=== PATIENT | male | born 1960 | race Caucasian/White ===

== ENCOUNTER 2019-12-23 19:36 | Inpatient (IN) | payer MEDICAID, SELFPAY ==
--- NOTE | ~2019-12-23 | XR_ITS ---
EXAMINATION: XR chest 2V DATE: 12/23/2019 21:02 INDICATION: Shortness of breath TECHNIQUE: PA and lateral views of the chest are obtained. COMPARISON: 06/05/2013 FINDINGS: Small pleural effusions are present, left greater than right. Cardiomegaly is noted. There is a mild diffuse interstitial pattern. No pneumothorax is identified. Airspace opacities are present in the lung bases, left greater than right. Median sternotomy wires and mediastinal surgical clips a re seen, likely from prior coronary artery bypass grafting. Suture anchors are noted in the left timothy ral head. There are bridging osteophytes at multiple levels in the spine, consistent with diffuse idi opathic skeletal hyperostosis (DISH). IMPRESSION: 1. Cardiomegaly with mild pulmonary edema. 2. Small pleural effusions, left greater than right. 2. Bibasilar airspace opacity, likely atelectasis. Reviewed, dictated and finalized at location A.
[2019-12-23 19:52] VITALS: BP 184/126; PULSE 113; RESP 25; TEMP 36.1; O2SAT 98
--- NOTE | 2019-12-23 19:56 | ECG_ITS ---
Measurements Intervals [place] Rate: 110 P: -26 PA: 144 QRS: 11 QRSD: 90 T: 80 QT: 330 QTc: 448 Interpretive Statements SINUS TACHYCARDIA LOW QRS VOLTAGE IN LIMB LEADS BORDERLINE R WAVE PROGRESSION, ANTERIOR LEADS BORDERLINE T WAVE ABNORMALITY- HIGH LATERAL LEADS ABNORMAL ECG Electronically Signed On 12-24-2019 6:41:21 CDT by Asaf Murillo D.O.
[2019-12-23 20:03] LABS: Basophils Percent Auto 0.3 % (0.2-1.2); Eosinophils Percent Auto 0.1 % (0-4.4); Hemoglobin 14.6 g/dL (14.0-18.0); Immature Granulocyte Absolute 0.03 K/mm3 (0.00-0.031); Immature Granulocyte Percent A 0.3 % (0-0.5); Lymphocytes Absolute Auto 1.19 K/mm3 (0.9-3.2); Lymphocytes Percent Auto 12.8 % (18.3-44.2); Mean Corpuscular HGB Conc 31.7 g/dl (32-36); Mean Corpuscular Hemoglobin 30.2 pg (26-34); Monocytes Absolute Auto 1.1 K/mm3 (0.1-0.6); Monocytes Percent Auto 11.4 % (2.6-8.5); Neutrophils Percent Auto 75.1 % (45.5-73.1); Platelet Count Result 417 k/mm3 (150-375); Red Blood Count 4.84 M/mm3 (4.6-6.20); Red Cell Distribution Width 13.8 % (11.5-14.5); White Blood Count 9.3 K/mm3 (4.5-10.0)
[2019-12-23 20:12] LABS: Prothrombin Time 13.3 Seconds (11.1-14.7)
[2019-12-23 20:13] LABS: Partial Thromboplastin Time 30.4 SECONDS (22.3-36.8)
[2019-12-23 20:14] LABS: Anion Gap 11 mmol/L (8-16); Blood Urea Nitrogen 23 mg/dL (9-20); Calcium 9.8 mg/dL (8.4-10.2); Carbon Dioxide 24 mmol/L (22-30); Chloride 100 mmol/L (98-107); Estimated CRCL calculation 97 ml/min; Estimated Glomerular Filt Rate > 60; Glucose 135 mg/dL (75-110); Potassium 5.1 mmol/L (3.4-5.0); Sodium 135 mmol/L (137-145)
[2019-12-23 20:31] LABS: NT Pro B Type Natriuretic Pept 17500 PG/ML (5-100); Troponin I 0.073 ng/mL (0.000-0.034)
[2019-12-23 20:39] VITALS: PULSE 113
--- NOTE | 2019-12-23 20:52 | PC.NURSE ---
pt presents to ER with c/o bilateral lower extremity edema and SOB. pt states he has not been taking Lasix or been to doctor in 5 years. pt states after he lost his insurance he was not able to pay for his medications. this past week his neighbor provided him with some Lasix, unknown dose. bilateral lower extremity pitting edema present. +SOB with rest and exertion. denies any CP. pt hypertensive upon arrival. pt hooked up to monitor; will continue to monitor pt for baseline status changes.
--- NOTE | 2019-12-23 21:10 | ED.GENADULT ---
HPI - General Adult General Chief complaint: Shortness of Breath/Dyspnea Stated complaint: sob, leg swelling Time Seen by Provider: 12/23/19 20:49 Source: patient History of Present Illness HPI narrative: Patient is a 59 y/o male complaining of severe shortness of breath for 2 weeks. He states that his SOB is severe and it's worse with minimal exertion. He also has some cough and chest pain with cough. He denies any fever. He has not been compliant with his medications recently. Related Data Home Medications Medication Instructions Recorded Confirmed omeprazole magnesium [Prilosec OTC] 20 mg PO DAILY 12/24/19 12/24/19 Allergies Allergy/AdvReac Type Severity Reaction Status Date / Time No Known Allergies Allergy Verified 07/03/13 09:57 Review of Systems Constitutional: Constitutional: Denies chills, Denies fever(s), Denies headache(s) and Denies weakness Eyes: Eyes: Denies blurry vision ENT: Denies headache(s) and Denies neck pain Cardiovascular: Cardiovascular: Reports chest pain and Reports dyspnea Respiratory: Respiratory: Reports cough and Reports dyspnea Gastrointestinal: Gastrointestinal: Denies abdominal pain, Denies diarrhea, Denies nausea and Denies vomiting Genitourinary: Genitourinary: Denies hematuria and Denies dysuria Musculoskeletal: Musculoskeletal: Denies back pain and Denies neck pain Neurologic: Denies headache(s) and Denies weakness PMF Past Medical History Medical History (Updated 12/24/19 @ 12:25 by Joann Malloy MD) CHF (congestive heart failure) Coronary artery disease Dilatation of esophagus Essential hypertension GERD (gastroesophageal reflux disease) Obstructive sleep apnea on CPAP Surgical History Surgical History (Updated 12/24/19 @ 09:19 by Helene David DO) History of bilateral carpal tunnel release History of repair of anterior cruciate ligament of right knee History of repair of left rotator cuff x2 History of repair of right rotator cuff Hx of CABG 2 vessel July 2014 at [place] Family History Family History (Updated 12/24/19 @ 09:29 by Helene David DO) Mother Diabetes mellitus Father Prostate carcinoma Sibling Intellectual disability younger sister Social History Social History Smoking status: Never smoker Alcohol intake: former Drinks per week: 12 Substance use: never Substance use type: does not use Gender identity (if verbalized by the patient): Male Spiritual care concerns: No Exam Const: General: no acute distress and well developed Orientation/consciousness: oriented to person, oriented to place, oriented to time and patient oriented x3 HENMT: Head: normocephalic Ears: external ears normal General nose exam: Normal external nose present Eyes: General: appearance normal, both eyes and all related structures Conjunctivae: conjunctivae normal Neck: Neck: normal visual inspection and full ROM Chest: Chest palpation & inspection: normal inspection of the chest and no tenderness Resp: Effort & Inspection: normal respiratory effort Auscultation: clear to auscultation bilaterally Cardio: Rate: tachycardic Rhythm: regular rhythm GI: GI Palp: No abdominal tenderness and Yes Soft to palpation Skin: General skin exam: normal color and turgor normal Neuro: General: oriented to person, oriented to place, oriented to time and patient oriented x3 Speech: normal speech Coordination: [id number]-[id number] test normal and [id number]-rc-[id number] test normal Extrem: General: normal to inspection, full ROM, edema bilateral and pedal edema Psych: Appearance: grossly normal Mental Status: mental status grossly normal Affect: normal affect Course Consultations Consultation #1: Discussed with Dr. David, who agrees to admit. Date: 12/24/19 Time: 00:15 Vital Signs Vital signs: Vital Signs Temperature 36.1 C L 12/23/19 19:52 Pulse Rate 113 H 12/23/19 19:52 Resp
[2019-12-23] MEDS: FUROSEMIDE INJ 40 MG/4 ML VIAL IV PUSH (21:22)
[2019-12-23 21:23] VITALS: BP 172/109; PULSE 107; RESP 21; O2SAT 100
[2019-12-23 21:57] VITALS: PULSE 108
[2019-12-23] MEDS: lisinopriL 20 MG TABLET PO (21:57)
[2019-12-23] MEDS: carvediloL 12.5 MG TABLET PO (21:57)
[2019-12-23 21:58] VITALS: BP 173/119; PULSE 108; RESP 20; O2SAT 100
[2019-12-23 22:49] VITALS: BP 138/97; PULSE 98; RESP 18; O2SAT 97
[2019-12-24] VITALS (16 sets, daily range): BP systolic 112–170; BP diastolic 67–112; PULSE 65–89; RESP 17–22; TEMP 35.9–36.7; O2SAT 94–100; BMI 35.4
--- NOTE | 2019-12-24 | ECHO_ITS ---
Patient Info Name: Jagdeep Nieto Age: 59 years : 1960 Gender: Male Ht: 73 in Wt: 268 lbs BSA: 2.54 m2 HR: 80 bpm BP: 170 / 112 mmHg Heart Rhythm: Sinus Rhythm Technical Quality: Good Exam Date: 12/24/2019 9:46 AM Exam Location: [facility] Patient Status: Inpatient Admit Date: 12/24/2019 Staff Ordering Physician: Rivas Burgos MD Optical Assistant: Devonte Philippe RDCS Attending Provider: Helene David DO Referring Physician: Aubrey WADE; Exam Type: CA echo dop color flow w con Study Info Indications I50.22 - Chronic systolic (congestive) heart failure Complete two-dimensional, color flow and Doppler transthoracic echocardiogram is performed with contrast to opacify the left ventricle and to improve the deliniation of the left ventricle endocardial borders. Contrast/Agitated Saline Contrast/Ag. Saline: Definity Amount: 3.00 ml Administered By: Herb Hodgson RN Existing IV Access: Yes History/Risk Factors CHF; CAD s/p CABG 2015, SOB, tachycardia. Summary 1. Left ventricular chamber dimension is moderately enlarged. 2. Left ventricular systolic function is severely reduced, estimated at 20-25%. 3. There is mildly increased left ventricular wall thickness. 4. The left ventricular diastolic function is grade II diastolic dysfunction. 5. The apical inferior wall, apical cap, and mid anteroseptal are akinetic. 6. The anterior wall, anterolateral wall, inferolateral wall, apical septum, basal inferior wall, mid inferior wall, basal inferoseptal, and basal anteroseptal are hypokinetic. 7. Left atrial chamber dimension is mildly enlarged. 8. There is mild aortic valve regurgitation. 9. There is mild mitral valve regurgitation. 10. There is mild tricuspid valve regurgitation. 11. There is moderate pulmonic regurgitation. Left Ventricle Left ventricular chamber dimension is moderately enlarged. Left ventricular systolic function is severely reduced, estimated at 20-25%. There is mildly increased left ventricular wall thickness. The left ventricular diastolic function is grade II diastolic dysfunction. The apical inferior wall, apical cap, and mid anteroseptal are akinetic. The anterior wall, anterolateral wall, inferolateral wall, apical septum, basal inferior wall, mid inferior wall, basal inferoseptal, and basal anteroseptal are hypokinetic. All other marie appear normal. Right Ventricle Right ventricular chamber dimension is normal. Right ventricular systolic function is normal. Left Atria Left atrial chamber dimension is mildly enlarged. Atrial Septum Intact interatrial septum visualized by color flow imaging. Aortic Valve The aortic valve is trileaflet. There is mild aortic valve sclerosis. There is no aortic valve stenosis. There is mild aortic valve regurgitation. Pulmonic Valve The pulmonic valve is normal. There is no pulmonic valve stenosis. There is moderate pulmonic regurgitation. Mitral Valve The mitral valve has thickened leaflets. There is no mitral valve stenosis. There is mild mitral valve regurgitation. Tricuspid Valve The tricuspid valve leaflets are normal. There is no significant tricuspid valve stenosis. There is mild tricuspid valve regurgitation. Pericardium/Pleural The pericardium appears normal. There is trivial pericardial effusion. Inferior Vena Cava Dilated inferior vena cava with >50% collapse upon inspira
[2019-12-24 00:15] LABS: Troponin I 0.075 ng/mL (0.000-0.034)
--- NOTE | 2019-12-24 02:20 | ADMGEN ---
This patient, Jagdeep Nieto, was admitted to 2 Medical Room 259-01. Patient/family oriented to hospital policies and general routines including ID bracelet, bed and alarms, visiting hours, pain management, procedures, bathroom and other care routines, personal items, smoking policy, room service/diet, and visiting hours. Valuables list has been completed. Information on how to activate the Rapid Response Team has been discussed. Patient/Family are encouraged to report perceived risks to care and to ask questions if they do not understand what they are told or what they should do.
[2019-12-24 03:02] LABS: Troponin I 0.093 ng/mL (0.000-0.034)
[2019-12-24 05:46] LABS: Basophils Percent Auto 0.3 % (0.2-1.2); Eosinophils Percent Auto 0.1 % (0-4.4); Hematocrit 43.6 % (42.0-52.0); Immature Granulocyte Absolute 0.04 K/mm3 (0.00-0.031); Immature Granulocyte Percent A 0.4 % (0-0.5); Lymphocytes Absolute Auto 1.33 K/mm3 (0.9-3.2); Mean Corpuscular HGB Conc 32.1 g/dl (32-36); Mean Corpuscular Hemoglobin 30.4 pg (26-34); Mean Corpuscular Volume 94.6 fl (80-100); Mean Platelet Volume 9.8 fl (7.4-10.4); Monocytes Absolute Auto 1.2 K/mm3 (0.1-0.6); Monocytes Percent Auto 12.1 % (2.6-8.5); Neutrophils Absolute Auto 7.6 K/mm3 (1.3-6.7); Neutrophils Percent Auto 74.1 % (45.5-73.1); Platelet Count Result 386 k/mm3 (150-375); Red Blood Count 4.61 M/mm3 (4.6-6.20); Red Cell Distribution Width 13.9 % (11.5-14.5); White Blood Count 10.2 K/mm3 (4.5-10.0)
[2019-12-24 05:53] LABS: Anion Gap 10 mmol/L (8-16); Blood Urea Nitrogen 25 mg/dL (9-20); Calcium 9.7 mg/dL (8.4-10.2); Carbon Dioxide 22 mmol/L (22-30); Chloride 103 mmol/L (98-107); Estimated CRCL calculation 90 ml/min; Estimated Glomerular Filt Rate > 60; Glucose 115 mg/dL (75-110); Potassium 4.9 mmol/L (3.4-5.0); Sodium 135 mmol/L (137-145)
[2019-12-24 07:01] LABS: Troponin I 0.103 ng/mL (0.000-0.034)
[2019-12-24 07:31] LABS: Basophils Percent Auto 0.4 % (0.2-1.2); Eosinophils Percent Auto 0.1 % (0-4.4); Hematocrit 40.3 % (42.0-52.0); Hemoglobin 13.3 g/dL (14.0-18.0); Immature Granulocyte Absolute 0.03 K/mm3 (0.00-0.031); Immature Granulocyte Percent A 0.4 % (0-0.5); Lymphocytes Absolute Auto 1.43 K/mm3 (0.9-3.2); Lymphocytes Percent Auto 17.1 % (18.3-44.2); Mean Corpuscular Hemoglobin 30.4 pg (26-34); Mean Corpuscular Volume 92.2 fl (80-100); Mean Platelet Volume 9.1 fl (7.4-10.4); Monocytes Absolute Auto 0.9 K/mm3 (0.1-0.6); Monocytes Percent Auto 10.4 % (2.6-8.5); Neutrophils Percent Auto 71.6 % (45.5-73.1); Platelet Count Result 348 k/mm3 (150-375); Red Blood Count 4.37 M/mm3 (4.6-6.20); Red Cell Distribution Width 13.8 % (11.5-14.5); White Blood Count 8.4 K/mm3 (4.5-10.0)
[2019-12-24 07:45] LABS: Anion Gap 9 mmol/L (8-16); Blood Urea Nitrogen 25 mg/dL (9-20); Calcium 9.3 mg/dL (8.4-10.2); Carbon Dioxide 23 mmol/L (22-30); Chloride 101 mmol/L (98-107); Estimated CRCL calculation 98 ml/min; Estimated Glomerular Filt Rate > 60; Glucose 106 mg/dL (75-110); Magnesium 1.9 mg/dL (1.6-2.3); Potassium 4.4 mmol/L (3.4-5.0); Sodium 133 mmol/L (137-145)
[2019-12-24 08:03] LABS: Troponin I 0.087 ng/mL (0.000-0.034)
[2019-12-24] MEDS: FUROSEMIDE INJ 40 MG/4 ML VIAL IV PUSH ×2 (08:14→16:27)
--- NOTE | 2019-12-24 09:00 | ECG_ITS ---
Measurements Intervals [place] Rate: 79 P: 16 [place]: 227 QRS: 20 QRSD: 87 T: 16 QT: 396 QTc: 456 Interpretive Statements SINUS RHYTHM WITH FIRST DEGREE AV BLOCK POSSIBLE LEFT ATRIAL ENLARGEMENT CANNOT RULE OUT SEPTAL INFARCT, AGE INDETERMINATE BORDERLINE T WAVE ABNORMALITY- DIFFUSE LEADS BASELINE ARTIFACT- I, II, III, AVR, AVL, AVF, V4-V6 ABNORMAL ECG Electronically Signed On 12-24-2019 13:04:18 CDT by Asaf Murillo D.O.
--- NOTE | 2019-12-24 09:06 | PM.IMHP ---
H&P: HPI History of Present Illness Date/Time: 12/24/19 07:00 Chief complaint: sob, leg swelling Narrative: Jagdeep Nieto is a 59 year old male With a past medical history of coronary artery disease status post CABG, CHF and obstructive sleep apnea who presented to the ER with shortness of breath and leg swelling. The patient reports that he had a 2 vessel CABG in July 2014 at [facility]. Approximately 6 months after that he lost his job and subsequently did not have any more insurance. He has not taken any of his medications since that time. He reports that over the last couple of years he has had intermittent episodes of shortness of breath. These episodes were usually last several days up to a couple of weeks when they occur. There accompanied by increased lower extremity swelling, orthopnea and paroxysmal nocturnal dyspnea. He reports that he is unable to sleep in a bed and is sleeping in a recliner. This current episode has been occurring for the last 3 weeks. His legs are currently more swollen than they have ever been. He does have chronic postnasal drip and has a frequent cough. He does have some chest discomfort associated with coughing. He reports that the pain is different than his prior cardiac pain. The pain is more superficial . He has not been having any palpitations. At around 5:00 a.m. today the patient developed an 18 beat run of V-tach. He was asymptomatic during this and was asleep. He was not wearing his CPAP at the time of the event. He has obstructive sleep apnea and is compliant with his CPAP therapy however he has not had new CPAP mask in 5 years. He reports that he does clean his CPAP machine each week. The patient reports that he will occasionally have blood tinged stool. He thinks that this is likely due to hemorrhoid but he has never had a colonoscopy. He denies any dysuria or changes in urinary frequency. He has not had any hematuria. He reported that in a immediately after his CABG he had lost 30 or 40 lb and was in really good health. He participated in cardiac rehab and consume an appropriate diet. Admits that he does not necessarily eat a low-sodium diet. he had become so short of breath at home that he tried an lfhw-orz-[id number] diuretic prior to coming to the ER without any improvement in symptoms. He does have intermittent GERD symptoms for which he takes ylrf-edo-sqicsti Pepcid. He also has frequent rhinitis symptoms which he will take fxil-mjy-mrruhqh Cha. Review of Systems Review of Systems: Narrative: 12 systems were reviewed with pertinent positives and negatives per HPI. Except as documented in the HPI, all other systems were reviewed and are negative. [facility] Past Medical History Medical History (Updated 12/24/19 @ 09:38 by Helene David DO) CHF (congestive heart failure) Coronary artery disease Dilatation of esophagus Essential hypertension GERD (gastroesophageal reflux disease) Obstructive sleep apnea on CPAP Surgical History Surgical History (Updated 12/24/19 @ 09:19 by Helene David DO) History of bilateral carpal tunnel release History of repair of anterior cruciate ligament of right knee History of repair of left rotator cuff x2 History of repair of right rotator cuff Hx of CABG 2 vessel July 2014 at [place] Family History Family History (Updated 12/24/19 @ 09:29 by Helene David DO) Mother Diabetes mellitus Father Prostate carcinoma Sibling Intellectual disability younger sister Social History Social History Smoking status: Never smoker Alcohol intake: former Drinks per week: 12 Substance use: never Substance use type: does not use Gender identity (if verbalized by the patient): Male Spiritual care concerns: No Meds Home Medications and Allergies Home Medications Medication Instructions Recorded Confirmed Type omeprazole magnesium [Prilos
[2019-12-24] MEDS: PERFLUTREN LIPID MICROSPHERES 1.5 ML VIAL DILUTED TO 10 ML TOTAL VOLUME IV PUSH (10:20)
[2019-12-24] MEDS: lisinopriL 20 MG TABLET PO (10:29)
[2019-12-24] MEDS: carvediloL 12.5 MG TABLET PO ×2 (10:29→21:25)
[2019-12-24] MEDS: ASPIRIN 81 MG ENTERIC TABLET PO (10:29)
[2019-12-24] MEDS: ENOXAPARIN 40 MG/0.4 ML SYRINGE SUB-Q (10:30)
--- NOTE | 2019-12-24 12:29 | PC.NURSE ---
Dr. Burgos notified of EKG results.
--- NOTE | 2019-12-24 17:05 | PM.IMPN ---
Progress Note: A&P Assessment and Plan (1) Acute on chronic systolic (congestive) heart failure: Code(s): I50.23 - Acute on chronic systolic (congestive) heart failure Status: Acute Assessment and Plan: been placed on FAISAL-inhibitor, beta-kira, with IV diuresis. With low EF full add spironolactone also. Have seen by Cardiology because candidate for possibly LifeVest or ICD later (2) Hypertension: Qualifiers: Hypertension type: essential hypertension Qualified Code(s): I10 - Essential (primary) hypertension Code(s): I10 - Essential (primary) hypertension Status: Acute Assessment and Plan: pressure is better after instituting diuresis and antihypertensives (3) Elevated troponin: Code(s): R79.89 - Other specified abnormal findings of blood chemistry Status: Acute Assessment and Plan: probably secondary to heart failure. Did not suspect any acute coronary event (4) Coronary artery disease: Code(s): I25.10 - Atherosclerotic heart disease of [place] coronary artery without angina pectoris Status: Acute Assessment and Plan: continue beta-kira and will add low-dose aspirin and statin also. (5) DVT prophylaxis: Code(s): Z29.9 - Encounter for prophylactic measures, unspecified Status: Acute Assessment and Plan: Lovenox Subjective Date/time seen: 12/24/19 17:05 Interval history: date of visit 12/23. 59-year-old hypertensive male status post CABG some 5 years ago presented with increasing edema and shortness of breath with hypertension. Been given IV Lasix, beta-kira, and FAISAL-inhibitor and is feeling somewhat better. Echo did today revealed ejection fraction of 20-25%. denies any chest pain. Exam Narrative: Exam Narrative: Blood pressure 140/80 pulse is 82 saturating 99% on room air afebrile pupils equal reactive to light sclera anicteric lungs clear CV no murmur abdomen soft nontender obese extremities without edema dorsalis pedis posterior tibial neuro alert pleasant cooperative no focal deficits Objective Data Vital Signs Vital Signs: Vital Signs - 24 hr 12/23/19 19:52 12/23/19 20:39 12/23/19 21:23 Temperature 36.1 C L Pulse Rate 113 H 113 H 107 H Respiratory Rate 25 H 21 H Blood Pressure 184/126 H 172/109 H Pulse Oximetry 98 100 12/23/19 21:57 12/23/19 21:58 12/23/19 22:49 Temperature Pulse Rate 108 H 108 H 98 Respiratory Rate 20 18 Blood Pressure 173/119 H 138/97 H Pulse Oximetry 100 97 12/24/19 00:29 12/24/19 01:45 12/24/19 02:00 Temperature 36.1 C L Pulse Rate 89 88 Respiratory Rate 17 17 20 Blood Pressure 126/96 H 136/105 H 136/96 H Pulse Oximetry 97 94 98 12/24/19 03:19 12/24/19 04:00 12/24/19 05:36 Temperature 36.7 C Pulse Rate 83 85 84 Respiratory Rate 22 H Blood Pressure 170/112 H Pulse Oximetry 97 12/24/19 08:00 12/24/19 10:29 12/24/19 10:30 Temperature 36.2 C L Pulse Rate 87 65 82 Respiratory Rate 18 Blood Pressure 139/80 Pulse Oximetry 98 12/24/19 12:00 12/24/19 14:00 12/24/19 16:00 Temperature 36.2 C L Pulse Rate 82 81 77 Respiratory Rate 18 Blood Pressure 142/88 H Pulse Oximetry 96 Intake/Output Intake/Output: Intake & Output 12/21/19 12/22/19 12/23/19 12/24/19 23:59 23:59 23:59 23:59 Intake Total 1230 Output Total 500 1450 Balance -500 -220 Meds/Results Medications: Active Medications Generic Name Dose Route Start Last Admin Trade Name Freq PRN Reason Stop Dose Admin Aspirin 81 mg 12/24/19 09:00 12/24/19 10:29 Aspirin Ec PO 81 mg QAM [facility] Administration Carvedilol 12.5 mg 12/24/19 09:15 12/24/19 10:29 Coreg PO 12.5 mg Q12HR [facility] Administration Enoxaparin Sodium 40 mg 12/24/19 09:00 12/24/19 10:30 Lovenox SUB-Q 40 mg DAILY [facility] Administration Furosemide 40 mg 12/24/19 09:00 12/24/19 16:27 Lasix Inj IV PUSH 40 mg BID [facility]
[2019-12-24] MEDS: ATORVASTATIN 40 MG TABLET PO (21:25)
[2019-12-25] VITALS (12 sets, daily range): BP systolic 108–129; BP diastolic 57–81; PULSE 66–80; RESP 18–20; TEMP 35.8–36.5; O2SAT 93–99
[2019-12-25 04:46] LABS: Basophils Percent Auto 0.2 % (0.2-1.2); Eosinophils Absolute Auto 0.1 K/mm3 (0-0.3); Eosinophils Percent Auto 0.8 % (0-4.4); Hematocrit 38.6 % (42.0-52.0); Hemoglobin 12.4 g/dL (14.0-18.0); Immature Granulocyte Absolute 0.03 K/mm3 (0.00-0.031); Immature Granulocyte Percent A 0.3 % (0-0.5); Lymphocytes Absolute Auto 1.21 K/mm3 (0.9-3.2); Lymphocytes Percent Auto 13.8 % (18.3-44.2); Mean Corpuscular HGB Conc 32.1 g/dl (32-36); Mean Corpuscular Hemoglobin 30.3 pg (26-34); Mean Corpuscular Volume 94.4 fl (80-100); Mean Platelet Volume 8.9 fl (7.4-10.4); Monocytes Absolute Auto 1.1 K/mm3 (0.1-0.6); Neutrophils Absolute Auto 6.4 K/mm3 (1.3-6.7); Neutrophils Percent Auto 72.9 % (45.5-73.1); Platelet Count Result 327 k/mm3 (150-375); Red Blood Count 4.09 M/mm3 (4.6-6.20); Red Cell Distribution Width 13.6 % (11.5-14.5); White Blood Count 8.8 K/mm3 (4.5-10.0)
[2019-12-25 04:59] LABS: Anion Gap 6 mmol/L (8-16); Blood Urea Nitrogen 36 mg/dL (9-20); Calcium 8.7 mg/dL (8.4-10.2); Carbon Dioxide 29 mmol/L (22-30); Chloride 99 mmol/L (98-107); Cholesterol 139 mg/dL (0-200); Estimated CRCL calculation 77 ml/min; Estimated Glomerular Filt Rate 57; Glucose 96 mg/dL (75-110); HDL Direct 27 mg/dL; Potassium 4.3 mmol/L (3.4-5.0); Sodium 134 mmol/L (137-145); Triglycerides 41 mg/dL (<150)
[2019-12-25 05:10] LABS: LDL Cholesterol Direct 96 mg/dL
[2019-12-25] MEDS: carvediloL 12.5 MG TABLET PO ×2 (08:05→20:29)
[2019-12-25] MEDS: SPIRONOLACTONE 25 MG TABLET PO (08:05)
[2019-12-25] MEDS: ASPIRIN 81 MG ENTERIC TABLET PO (08:05)
[2019-12-25] MEDS: ENOXAPARIN 40 MG/0.4 ML SYRINGE SUB-Q (08:05)
[2019-12-25] MEDS: lisinopriL 20 MG TABLET PO (08:05)
[2019-12-25] MEDS: FUROSEMIDE INJ 40 MG/4 ML VIAL IV PUSH (08:05)
[2019-12-25] MEDS: PANTOPRAZOLE 40 MG TABLET PO (09:05)
--- NOTE | 2019-12-25 12:03 | PM.CNCAR ---
Assessment and Plan Assessment and plan (1) Acute on chronic systolic (congestive) heart failure: Code(s): I50.23 - Acute on chronic systolic (congestive) heart failure Status: Acute Assessment and Plan: much worse ejection fraction as compared to last study and November of 2014 showing an ejection fraction 45-50% at that time. Agree with current medications including lisinopril, carvedilol, spironolactone, furosemide. (2) Coronary artery disease: Code(s): I25.10 - Atherosclerotic heart disease of [place] coronary artery without angina pectoris Status: Acute Assessment and Plan: Previous WANG to the LAD and SVG to OM in 2014. Has not been on medical therapy since 2015. Likely the vein graft to the OM is occluded and obviously concerned about worsening [place] coronary disease /graft disease. Continue meds including aspirin 81 mg p.o. daily and statin. Will keep him NPO after midnight for cardiac catheterization including coronary and graft angiogram Will hold his morning dose of enoxaparin (3) Hypertension: Qualifiers: Hypertension type: essential hypertension Qualified Code(s): I10 - Essential (primary) hypertension Code(s): I10 - Essential (primary) hypertension Status: Acute Assessment and Plan: better controlled (4) Elevated troponin: Code(s): R79.89 - Other specified abnormal findings of blood chemistry Status: Acute Assessment and Plan: not related to ACS. This is related to heart failure (5) Nonsustained ventricular tachycardia: Code(s): I47.2 - Ventricular tachycardia Status: Acute Assessment and Plan: long-term very well may need a defibrillator. some of this will be dependent on what is found with his coronary angiogram And if any of his cardiomyopathy can be improved. Life vest would be advised discharge if able given his insurance situation (6) Obstructive sleep apnea on CPAP: Code(s): G47.33 - Obstructive sleep apnea (adult) (pediatric); Z99.89 - Dependence on other enabling machines and devices Status: Acute Assessment and Plan: will need outpatient workup (7) Hyperlipidemia: Code(s): E78.5 - Hyperlipidemia, unspecified Status: Acute Assessment and Plan: continue statin (8) Ischemic cardiomyopathy: Code(s): I25.5 - Ischemic cardiomyopathy Status: Acute Assessment and Plan: significantly worse than before. Continue current medication History of Present Illness History of Present Illness Consult date/time: 12/25/19 12:03 Requesting physician: Rivas Burgos MD Consult reason: congestive heart failure Reason For Visit: sob, leg swelling Narrative: Date of service 12/25/2019 reason consultation, cardiomyopathy, CHF, CAD History: Patient is a 59-year-old male who does have a history of coronary disease and had a myocardial infarction in 2014. At that time he was at work and started felt chest pain. He went to [place] where he underwent a coronary angiogram and he was found to have an occluded LAD as well as a circumflex system. He did have right to left collaterals. the ejection fraction at that time was around 30%. He underwent a coronary artery bypass grafting in July 2014 with a WANG to LAD and a SVG to the OM. He did have a follow-up echocardiogram in November of 2014 showing an improvement of his ejection fraction up to 45-50%. Unfortunately shortly thereafter, he lost his job and insurance and has not been seen routinely since that time. He only has been taking mssr-whr-[id number] medications. He states that he was taking aspirin, omeprazole. Over the past 5 years he has had episodes of edema and shortness of breath but these episodes were self-limiting. They would last for a few days to weeks and then resolve but recently is noticed increasingly worse shortness of breath, edema. It has not resolved and has continued to p
[2019-12-25 13:08] LABS: Magnesium 1.9 mg/dL (1.6-2.3)
--- NOTE | 2019-12-25 16:49 | PM.IMPN ---
Progress Note: A&P Assessment and Plan (1) Acute on chronic systolic (congestive) heart failure: Code(s): I50.23 - Acute on chronic systolic (congestive) heart failure Status: Acute Assessment and Plan: been placed on FAISAL-inhibitor, beta-kira, with IV diuresis. With low EF full added spironolactone also. mild fluid restrict with po intake of 3000ml 12/23 decrease lasix to qd with creatinine increased to 1.3 seen by Cardiology and repeat cath 12/25 to assess for ischemia (2) Hypertension: Qualifiers: Hypertension type: essential hypertension Qualified Code(s): I10 - Essential (primary) hypertension Code(s): I10 - Essential (primary) hypertension Status: Acute Assessment and Plan: pressure is better after instituting diuresis and antihypertensives (3) Elevated troponin: Code(s): R79.89 - Other specified abnormal findings of blood chemistry Status: Acute Assessment and Plan: probably secondary to heart failure. Did not suspect any acute coronary event (4) Coronary artery disease: Code(s): I25.10 - Atherosclerotic heart disease of [place] coronary artery without angina pectoris Status: Acute Assessment and Plan: continue beta-kira and low-dose aspirin with statin also. cath 12/25 (5) DVT prophylaxis: Code(s): Z29.9 - Encounter for prophylactic measures, unspecified Status: Acute Assessment and Plan: Lovenox Subjective Date/time seen: 12/25/19 16:49 Interval history: date of visit 12/23. 59-year-old hypertensive male status post CABG some 5 years ago presented with increasing edema and shortness of breath with hypertension. Been given IV Lasix, beta-kira, and FAISAL-inhibitor and is feeling somewhat better. Echo did 12/23 revealed ejection fraction of 20-25%. denies any chest pain. edema decreased some Exam Narrative: Exam Narrative: Blood pressure 110/74 pulse is 70 saturating 96% on room air afebrile pupils equal reactive to light sclera anicteric lungs clear CV no murmur abdomen soft nontender obese extremities without edema dorsalis pedis posterior tibial neuro alert pleasant cooperative no focal deficits Objective Data Vital Signs Vital Signs: Vital Signs - 24 hr 12/24/19 18:00 12/24/19 20:00 12/24/19 21:25 Temperature 35.9 C L Pulse Rate 75 74 76 Respiratory Rate 18 Blood Pressure 112/67 Pulse Oximetry 96 12/24/19 22:00 12/25/19 00:00 12/25/19 04:00 Temperature 36.2 C L 36.5 C 35.8 C L Pulse Rate 73 69 69 Respiratory Rate 18 20 18 Blood Pressure 147/88 H 129/74 111/75 Pulse Oximetry 100 99 96 12/25/19 08:00 12/25/19 08:05 12/25/19 10:00 Temperature 36.1 C L Pulse Rate 73 72 80 Respiratory Rate 18 Blood Pressure 108/57 L Pulse Oximetry 93 12/25/19 12:00 12/25/19 16:00 Temperature Pulse Rate 70 73 Respiratory Rate Blood Pressure Pulse Oximetry Intake/Output Intake/Output: Intake & Output 12/22/19 12/23/19 12/24/19 12/25/19 23:59 23:59 23:59 23:59 Intake Total 2009 1759 Output Total 500 2150 700 Balance -500 -140 1060 Meds/Results Medications: Active Medications Generic Name Dose Route Start Last Admin Trade Name Dejuanq PRN Reason Stop Dose Admin Aspirin 81 mg 12/24/19 09:00 12/25/19 08:05 Aspirin Ec PO 81 mg QAM TRICIA Administration Atorvastatin Calcium 40 mg 12/24/19 21:00 12/24/19 21:25 Lipitor PO 40 mg HS TRICIA Administration Carvedilol 12.5 mg 12/24/19 09:15 12/25/19 08:05 Coreg PO 12.5 mg Q12HR TRICIA Administration Enoxaparin Sodium 40 mg 12/24/19 09:00 12/25/19 08:05 Lovenox SUB-Q 40 mg DAILY TRICIA Administration Furosemide 40 mg 12/25/19 09:00 12/25/19 08:05 Lasix Inj IV PUSH 40 mg DAILY TRICIA Administration Lisinopril 20 mg 12/24/19 09:00 12/25/19 08:05 Prinivil PO 20 mg DAILY TRICIA Administration Pantoprazole Sodium 40 mg 12/25/19
[2019-12-25] MEDS: ATORVASTATIN 40 MG TABLET PO (20:29)
[2019-12-26] VITALS (20 sets, daily range): BP systolic 111–143; BP diastolic 62–92; PULSE 62–259; RESP 16–20; TEMP 35.8–36.8; O2SAT 96–100
[2019-12-26 05:59] LABS: Anion Gap 6 mmol/L (8-16); Blood Urea Nitrogen 34 mg/dL (9-20); Calcium 8.8 mg/dL (8.4-10.2); Carbon Dioxide 28 mmol/L (22-30); Chloride 100 mmol/L (98-107); Estimated CRCL calculation 90 ml/min; Estimated Glomerular Filt Rate > 60; Glucose 110 mg/dL (75-110); Magnesium 1.9 mg/dL (1.6-2.3); Sodium 134 mmol/L (137-145)
[2019-12-26] MEDS: carvediloL 12.5 MG TABLET PO ×2 (08:15→21:07)
[2019-12-26] MEDS: SPIRONOLACTONE 25 MG TABLET PO (08:17)
[2019-12-26] MEDS: PANTOPRAZOLE 40 MG TABLET PO (08:17)
[2019-12-26] MEDS: ASPIRIN 81 MG ENTERIC TABLET PO (08:17)
[2019-12-26] MEDS: lisinopriL 20 MG TABLET PO (08:17)
--- NOTE | 2019-12-26 08:57 | PC.NURSE ---
Patient to cardiac cath. IV saline locked.
--- NOTE | 2019-12-26 09:16 | WPDHPUPDATE1 ---
History and Physical Update Update Date/Time: 12/26/19 09:16 History and Physical has been reviewed, including an updated exam of the patient. There are NO changes in the patient's condition. Risks, benefits, and alternatives have been discussed and questions answered. Patient agrees to proceed with procedure.
--- NOTE | 2019-12-26 09:16 | WPDMODSED ---
Moderate Sedation Note-Pt Data Patient Data Allergies Allergy/AdvReac Type Severity Reaction Status Date / Time No Known Allergies Allergy Verified 07/03/13 09:57 Home Medications Medication Instructions Recorded Confirmed Type omeprazole magnesium [Prilosec OTC] 20 mg PO DAILY 12/24/19 12/24/19 History Current Medications: Active Medications Aspirin (Aspirin Ec) 81 mg PO QAM [facility] Last Admin: 12/26/19 08:17 Dose: 81 mg Documented by: Atorvastatin Calcium (Lipitor) 40 mg PO HS [facility] Last Admin: 12/25/19 20:29 Dose: 40 mg Documented by: Carvedilol (Coreg) 12.5 mg PO Q12HR [facility] Last Admin: 12/26/19 08:15 Dose: 12.5 mg Documented by: Enoxaparin Sodium (Lovenox) 40 mg SUB-Q DAILY [facility] Last Admin: 12/25/19 08:05 Dose: 40 mg Documented by: Furosemide (Lasix Inj) 40 mg IV PUSH DAILY [facility] Last Admin: 12/25/19 08:05 Dose: 40 mg Documented by: Lisinopril (Prinivil) 20 mg PO DAILY [facility] Last Admin: 12/26/19 08:17 Dose: 20 mg Documented by: Pantoprazole Sodium (Protonix) 40 mg PO QAM [facility] Last Admin: 12/26/19 08:17 Dose: 40 mg Documented by: Spironolactone (Aldactone) 25 mg PO QAM [facility] Last Admin: 12/26/19 08:17 Dose: 25 mg Documented by: Sedation/Anesthesia: No previous sedation/anesthesia problems (including family history). [facility] Past Medical History Medical History CHF (congestive heart failure) Coronary artery disease Dilatation of esophagus Essential hypertension GERD (gastroesophageal reflux disease) Hyperlipidemia Ischemic cardiomyopathy Obstructive sleep apnea on CPAP Surgical History Surgical History History of bilateral carpal tunnel release History of repair of anterior cruciate ligament of right knee History of repair of left rotator cuff x2 History of repair of right rotator cuff Hx of CABG 2 vessel July 2014 at [facility] Family History Family History Mother Diabetes mellitus Father Prostate carcinoma Sibling Intellectual disability younger sister Social History Social History Smoking status: Never smoker Alcohol intake: former Drinks per week: 12 Substance use: never Substance use type: does not use Gender identity (if verbalized by the patient): Male Spiritual care concerns: No Mod Sed Physical Exam Physical Exam Pre Procedural Exam: Normal: Appearance, Eyes, Ears, Nose, Neck, Throat, Airway, Lungs, Heart Size, Heart Rate, Heart Rhythm, Neuro Exam, Abdomen, Liver, Kidneys, Spleen, Breasts, Genitalia, Extremities and Skin Hours since solid foods: 8 Hours since liquid intake: 8 Internal Medicine - PN: Obj Da Vital Signs Vital Signs: Vital Signs - 24 hr 12/25/19 10:00 12/25/19 12:00 12/25/19 14:00 Temperature 36.1 C L 36.4 C Pulse Rate 80 70 73 Respiratory Rate 18 18 Blood Pressure 108/57 L 125/70 Pulse Oximetry 93 98 12/25/19 16:00 12/25/19 18:00 12/25/19 20:00 Temperature 36.4 C 36.0 C L Pulse Rate 73 73 74 Respiratory Rate 18 20 Blood Pressure 125/70 123/81 Pulse Oximetry 98 98 12/25/19 20:29 12/25/19 22:50 12/26/19 00:00 Temperature 36.0 C L Pulse Rate 66 74 69 Respiratory Rate 20 20 Blood Pressure 111/66 Pulse Oximetry 96 99 12/26/19 04:00 12/26/19 06:00 12/26/19 08:00 Temperature 36.8 C 36.1 C L Pulse Rate 63 69 72 Respiratory Rate 20 20 Blood Pressure 114/62 129/79 Pulse Oximetry 97 100 12/26/19 08:15 12/26/19 08:18 Temperature 35.8 C L Pulse Rate 71 70 Respiratory Rate 20 Blood Pressure 132/82 Pulse Oximetry 96 Intake/Output Intake/Output: Intake & Output 12/23/19 12/24/19 12/25/19 12/26/19 23:59 23:59 23:59 23:59 Intake Total 2009 2880 0 Output Total 500 2150 1450 500 Balance -500 -140 1430 -500 Meds/Results Medications: Active Med
--- NOTE | 2019-12-26 09:16 | WPDCARDPROC ---
Cardiac Cath Procedure Note Date of procedure:: 12/26/19 Performing physician:: Cathy Sanches MD Date of service 12/26/2019 Indication:: shortness of breath on exertion, abnormal echocardiogram, CHF Brief clinical history:: this is 59-year-old patient with past history of coronary artery bypass graft 2014. At that time his LAD was occluded as well as the left circumflex artery [id number] collaterals. He underwent CABG with WANG to LAD, SVG to OM. His ejection fraction was 30% at that time. on follow-up echocardiograms his ejection fraction improved to 45%. However he lost his medical insurance and stopped taking medications and he comes back to the hospital with shortness of breath and CHF exacerbation his EF was found to be 25%. His echocardiogram also shows wall motion abnormalities. He was brought into the laborer saw[facility] to define coronary anatomy and exclude worsening coronary artery disease as possible etiology for worsening heart failure. Procedure Procedure performed:: 1-Moderate sedation that started at and ended at using mg of Versed and mg fentanyl. The registered nurse was Shante Heath. 2-Selective left and right coronary angiogram. 3- selective WANG angiogram. 4- selective saphenous venous graft angiogram. 5-Left heart catheterization with measurement of LVEDP and measurement of gradient across aortic valve. 6- intravascular ultrasound of the right coronary artery. 6-Deployment of a drug eluting stent 2.75 x 12 Xience 2 proximal portion right posterolateral branch with deployment done under normal pressure for 25 seconds. 7- deployment of a drug-eluting stent for by 18 Xience to mid RCA with deployment done under 18 atmospheres for 25 seconds. 8-Right common femoral arterial angiogram. 9-Deployment of 6 [place] Angio-Seal. Sedation/Medication given:: Moderate sedation. Access site:: Right common femoral artery. Estimated blood loss:: 10cc Procedure note:: After informed consent patient was brought in to [facility] with the was draped and prepped in usual manner. Moderate sedation was given and the right groin was infiltrated using 1% lidocaine. Five [place] sheath was obtained using micropuncture needle and the modified Seldinger technique. Because of tortuosity the right iliac artery we will 1st with a JR4 catheter and selective right coronary angiogram was done. subsequently a JR4 catheter was advanced to the left subclavian artery and selective WANG angiogram was done. After that AL1 diagnostic catheter was then used to engage the SVG to OM selective SVG to OM angiogram was done. Selective left coronary angiogram was done using JL4 catheter with the tip of the catheter placed in the left main coronary artery. After that 5 [place] pigtail catheter was advanced across the aortic valve into the left ventricle with measurement of LVEDP and measurement of gradient across aortic valve. Right common femoral arterial angiogram was done. After that patient was given Brilinta and Angiomax and then 6 [place] guide catheter was advanced and engaged in the RCA. Coronary wire occlusion 0.014 was advanced to distal right posterolateral branch. Balloon angioplasty of the right posterolateral branch done using 2.5 x 12 balloon and the luminal pressure for 20 seconds. Then deployment of a drug-eluting stent Xience 2.75 x 12 under luminal pressure for 25 seconds. After that intravascular ultrasound using FamilyID grayling eye and measurement of RCA was done. subsequently deployment of a drug-eluting stent Xience 4 x 18 to mid RCA and the 18 atmospheres for 25 seconds. after that we went back with the IVUS catheter and ensured that the distal stent as well as the mid RCA stent were all well opposed and expanded. finally deployment 6 [place] Angio-Seal. Findings:: 1- left coronary artery is a large artery and the Left main is free of disease. 2- left anterior descending artery is Occluded at the ostium. Distal to the WANG touchdown it has diffuse minimal irre
--- NOTE | 2019-12-26 10:49 | SUR.PHASEII ---
BEGIN PHASE II RECOVERY S/P [facility] W/ PCI WITH DR. HAYNES. RETURNS TO [employer] 5 VIA BED. AWAKE AND ALERT UPON RETURN. DENIES CP OR SOB. L. LOWER LEG ELEVATED WITH PILLOW DUE TO LOWER BACK ACHE WHILE ON BEDREST. VSS. REVIEWED BEDREST ACTIVITY RESTRICTIONS W/ PT. VOICED UNDERSTANDING. REINFORCED HOB FLAT X 2 HOURS AND KEEP R. LEG STRAIGHT. MONITOR SR. R. GROIN SITE SOFT, NONTENDER. NO BLEEDING OR HEMATOMA NOTED. ANGIOSEAL CLOSURE TO SITE, AREA COVERED W/ C/D/I GUAZE AND TEGADERM DRESSING. R. PEDAL PULSE 2+. WILL MONITOR.
--- NOTE | 2019-12-26 11:08 | ECG_ITS ---
Measurements Intervals [place] Rate: 66 P: 51 NH: 216 QRS: 49 QRSD: 85 T: 161 QT: 434 QTc: 455 Interpretive Statements SINUS RHYTHM WITH FIRST DEGREE AV BLOCK POSSIBLE LEFT ATRIAL ENLARGEMENT LOW QRS VOLTAGE IN LIMB LEADS CANNOT RULE OUT SEPTAL INFARCT, AGE INDETERMINATE ST-T WAVE ABNORMALITY IN LAT/HIGH LAT LEADS- CONSIDER ISCHEMIA ABNORMAL ECG Electronically Signed On 12-26-2019 11:34:06 CDT by Asaf Murillo D.O.
--- NOTE | 2019-12-26 11:29 | SUR.PHASEII ---
POST LHC W/ PCI EKG COMPLETED.
--- NOTE | 2019-12-26 11:50 | SUR.PHASEII ---
REPORT CALLED TO OMAYRA SALEH ON 2ND MEDICAL W/ TELE. PT. TO RETURN TO 259.1 VIA BED ON TELE MONITOR. PT. WITHOUT CHANGE.
--- NOTE | 2019-12-26 12:05 | SUR.PHASEII ---
END PHASE II RECOVERY. RETURNED TO 259.1 ON TELE MONITOR VIA BED. NO CHANGE IN R. GROIN SITE NOTED OR R. PEDAL PULSE. BEDREST COMPLETES AT 1250. OBSERVED R. GROIN CATH SITE AND R. PEDAL PULSE W/ OMAYRA SALEH BEDSIDE. PT. VOICES NO C/O. NO DISTRESS NOTED.
--- NOTE | 2019-12-26 12:14 | PC.NURSE ---
Patient return from labor arbitrator hearing office per bed. Report received from THERESE Waters.
[2019-12-26] MEDS: FUROSEMIDE INJ 40 MG/4 ML VIAL IV PUSH (13:57)
--- NOTE | 2019-12-26 15:11 | PM.IMPN ---
Progress Note: A&P Assessment and Plan (1) Acute on chronic systolic (congestive) heart failure: Code(s): I50.23 - Acute on chronic systolic (congestive) heart failure Status: Acute Assessment and Plan: been placed on FAISAL-inhibitor, beta-kira, with IV diuresis. With low EF full added spironolactone also. mild fluid restrict with po intake of 3000ml 12/23 decrease lasix to qd with creatinine increased to 1.3 12/24 and 1.1 today seen by Cardiology and repeat cath today stented [place] RCA and posterial lateral (2) Hypertension: Qualifiers: Hypertension type: essential hypertension Qualified Code(s): I10 - Essential (primary) hypertension Code(s): I10 - Essential (primary) hypertension Status: Acute Assessment and Plan: pressure is better after instituting diuresis and antihypertensives (3) Elevated troponin: Code(s): R79.89 - Other specified abnormal findings of blood chemistry Status: Acute Assessment and Plan: probably secondary to heart failure. Did not suspect any acute coronary event (4) Coronary artery disease: Code(s): I25.10 - Atherosclerotic heart disease of [place] coronary artery without angina pectoris Status: Acute Assessment and Plan: continue beta-kira and low-dose aspirin with statin also. cath today stented [place] RCA and posterial lateral (5) DVT prophylaxis: Code(s): Z29.9 - Encounter for prophylactic measures, unspecified Status: Acute Assessment and Plan: Lovenox Subjective Date/time seen: 12/26/19 15:11 Interval history: date of visit 12/25. 59-year-old hypertensive male status post CABG some 5 years ago presented with increasing edema and shortness of breath with hypertension. Been given IV Lasix, beta-kira, and FAISAL-inhibitor and is feeling somewhat better. Echo 12/23 revealed ejection fraction of 20-25%. denies any chest pain. edema decreased some Cath today patent grafts and stenting of [place] RCA and post lateral Exam Narrative: Exam Narrative: Blood pressure 130/90 pulse is 70 saturating 98% on room air afebrile pupils equal reactive to light sclera anicteric lungs clear CV no murmur abdomen soft nontender obese extremities still some edema ,dorsalis pedis posterior tibial 1+ neuro alert pleasant cooperative no focal deficits Objective Data Vital Signs Vital Signs: Vital Signs - 24 hr 12/25/19 16:00 12/25/19 18:00 12/25/19 20:00 Temperature 36.4 C 36.0 C L Pulse Rate 73 73 74 Respiratory Rate 18 20 Blood Pressure 125/70 123/81 Pulse Oximetry 98 98 12/25/19 20:29 12/25/19 22:50 12/26/19 00:00 Temperature 36.0 C L Pulse Rate 66 74 69 Respiratory Rate 20 20 Blood Pressure 111/66 Pulse Oximetry 96 99 12/26/19 04:00 12/26/19 06:00 12/26/19 08:00 Temperature 36.8 C 36.1 C L Pulse Rate 63 69 72 Respiratory Rate 20 20 Blood Pressure 114/62 129/79 Pulse Oximetry 97 100 12/26/19 08:15 12/26/19 08:18 12/26/19 10:55 Temperature 35.8 C L 35.9 C L Pulse Rate 71 70 67 Respiratory Rate 20 16 Blood Pressure 132/82 126/80 Pulse Oximetry 96 98 12/26/19 11:10 12/26/19 11:25 12/26/19 11:40 Temperature Pulse Rate 66 67 64 Respiratory Rate 16 18 18 Blood Pressure 129/84 130/92 H 140/83 Pulse Oximetry 100 100 100 12/26/19 12:10 Temperature 36.1 C L Pulse Rate 71 Respiratory Rate 20 Blood Pressure 131/90 Pulse Oximetry 98 Intake/Output Intake/Output: Intake & Output 12/23/19 12/24/19 12/25/19 12/26/19 23:59 23:59 23:59 23:59 Intake Total 2009 2880 0 Output Total 500 2150 1450 500 Balance -500 -140 1430 -500 Meds/Results Medications: Active Medications Generic Name Dose Route Start Last Admin Trade Name Freq PRN Reason Stop Dose Admin Al Hydrox/Mg Hydrox/Simethicone 30 ml 12/26/19 11:08 Mylanta PO Q4H PRN Indigestion Aspirin 81 mg 12/24/19 09:00 12/26/19 08:17 Aspirin E
[2019-12-26] MEDS: ATORVASTATIN 40 MG TABLET PO (21:06)
[2019-12-26] MEDS: TICAGRELOR 90 MG TABLET PO (21:07)
[2019-12-27] VITALS (10 sets, daily range): BP systolic 107–129; BP diastolic 59–78; PULSE 69–94; RESP 16–20; TEMP 36.1–36.6; O2SAT 95–98
[2019-12-27 05:17] LABS: Basophils Percent Auto 0.4 % (0.2-1.2); Eosinophils Percent Auto 0.4 % (0-4.4); Hematocrit 39.6 % (42.0-52.0); Hemoglobin 12.6 g/dL (14.0-18.0); Immature Granulocyte Absolute 0.04 K/mm3 (0.00-0.031); Immature Granulocyte Percent A 0.4 % (0-0.5); Lymphocytes Absolute Auto 0.77 K/mm3 (0.9-3.2); Mean Corpuscular HGB Conc 31.8 g/dl (32-36); Mean Corpuscular Volume 94.3 fl (80-100); Mean Platelet Volume 9.3 fl (7.4-10.4); Monocytes Absolute Auto 1.4 K/mm3 (0.1-0.6); Monocytes Percent Auto 12.5 % (2.6-8.5); Neutrophils Absolute Auto 8.7 K/mm3 (1.3-6.7); Neutrophils Percent Auto 79.3 % (45.5-73.1); Platelet Count Result 342 k/mm3 (150-375); Red Cell Distribution Width 13.8 % (11.5-14.5)
[2019-12-27 05:37] LABS: Anion Gap 7 mmol/L (8-16); Blood Urea Nitrogen 27 mg/dL (9-20); Calcium 8.8 mg/dL (8.4-10.2); Carbon Dioxide 29 mmol/L (22-30); Chloride 97 mmol/L (98-107); Estimated CRCL calculation 99 ml/min; Estimated Glomerular Filt Rate > 60; Glucose 122 mg/dL (75-110); Sodium 133 mmol/L (137-145)
[2019-12-27] MEDS: ACETAMINOPHEN 325 MG TABLET 650 MG PO (06:08)
[2019-12-27] MEDS: carvediloL 12.5 MG TABLET PO (09:19)
[2019-12-27] MEDS: ASPIRIN 81 MG ENTERIC TABLET PO (09:19)
[2019-12-27] MEDS: lisinopriL 20 MG TABLET PO (09:19)
[2019-12-27] MEDS: PANTOPRAZOLE 40 MG TABLET PO (09:19)
[2019-12-27] MEDS: FUROSEMIDE INJ 40 MG/4 ML VIAL IV PUSH (09:19)
[2019-12-27] MEDS: TICAGRELOR 90 MG TABLET PO (09:20)
[2019-12-27] MEDS: SPIRONOLACTONE 25 MG TABLET PO (09:20)
--- NOTE | 2019-12-27 10:14 | PC.NURSE ---
Assessment performed at 0925- documented at 1015 and forgot to change the time
--- NOTE | 2019-12-27 15:06 | PM.PNCARD ---
Progress Note: A&P Assessment and Plan (1) Acute on chronic systolic (congestive) heart failure: Code(s): I50.23 - Acute on chronic systolic (congestive) heart failure Status: Acute Assessment and Plan: Much worse ejection fraction as compared to last study and November of 2014 showing an ejection fraction 45-50% at that time. Continue lisinopril, carvedilol, spironolactone, furosemide. (2) Coronary artery disease: Code(s): I25.10 - Atherosclerotic heart disease of [place] coronary artery without angina pectoris Status: Acute Assessment and Plan: Previous WANG to the LAD and SVG to OM in 2014. Has not been on medical therapy since 2014. Cardiac catheterization 12/26/2019: 1- left coronary artery is a large artery and the Left main is free of disease. 2- left anterior descending artery is Occluded at the ostium. Distal to the WANG touchdown it has diffuse minimal irregularities. 3- left circumflex artery is Totally occluded at the ostium. 4- right coronary artery is large artery and dominant and has in the mid segment 80% and in the proximal portion of the right posterolateral branch 80% stenosis. 5- LVEDP was 40 mm Hg and no gradient across aortic valve. 6- opening arterial pressure was 130/80and closing pressure was 110/70. 7- intravascular ultrasound of the right coronary artery shows that the diameter of the RCA is about 4.2 cm. after stent deployment shows both the distal RCA stent and the mid RCA stent with well-opposed and expanded. 8- WANG to LAD was patent without stenosis. 9- SVG to OM is very large ectatic and without significant occlusion. 7- right femoral artery angiogram shows no significant disease in the right common femoral artery. Continue meds including aspirin 81 mg p.o. daily and statin. He was started on Brilinta in the cathode ray tube assembler however he has no insurance. He will be converted to clopidogrel. Will give him a loading dose before he leaves the hospital today. (3) Hypertension: Qualifiers: Hypertension type: essential hypertension Qualified Code(s): I10 - Essential (primary) hypertension Code(s): I10 - Essential (primary) hypertension Status: Acute Assessment and Plan: Much better controlled. Meds as above. (4) Elevated troponin: Code(s): R79.89 - Other specified abnormal findings of blood chemistry Status: Acute Assessment and Plan: Not related to ACS . Related to heart failure. (5) Nonsustained ventricular tachycardia: Code(s): I47.2 - Ventricular tachycardia Status: Acute Assessment and Plan: Long-term very well may need a defibrillator. With revascularization and medications possibility that his cardiomyopathy can be improved. Life vest would be advised however given his insurance situation not able to apply one at discharge. Has Medicaid pending. Will re-evaluate when he is seen in the office. (6) Obstructive sleep apnea on CPAP: Code(s): G47.33 - Obstructive sleep apnea (adult) (pediatric); Z99.89 - Dependence on other enabling machines and devices Status: Acute Assessment and Plan: States he has CPAP at home . Willl need outpatient workup (7) Hyperlipidemia: Code(s): E78.5 - Hyperlipidemia, unspecified Status: Acute Assessment and Plan: Continue statin (8) Ischemic cardiomyopathy: Code(s): I25.5 - Ischemic cardiomyopathy Status: Acute Assessment and Plan: Treatment as above. Additional Plan OK to discharge from a cardiac standpoint after he was loaded with clopidogrel See discharge instructions for follow-up. Plan discussed with Dr. Woodward 1520 12/27/2019 Subjective Date/time seen:
[2019-12-27] MEDS: CLOPIDOGREL BISULFATE 300 MG TABLET PO (16:56)
--- NOTE | 2019-12-27 17:45 | PM.DS ---
DS: Admitting Diagnosis Admitting Diagnosis Admitting Diagnosis: sob, leg swelling DS: Discharge Diagnosis Discharge Diagnosis (1) Acute on chronic systolic (congestive) heart failure: Code(s): I50.23 - Acute on chronic systolic (congestive) heart failure Status: Acute Assessment and Plan: been placed on FAISAL-inhibitor, beta-kira, with IV diuresis. With low EF full added spironolactone also. Lasix 40 mg p.o. b.i.d. at discharge with creatinine 1.1 seen by Cardiology and repeat cath 12/25 stented [place] RCA and posterial lateral with WANG graft to LAD and saphenous vein graft to obtuse marginal patent (2) Hypertension: Qualifiers: Hypertension type: essential hypertension Qualified Code(s): I10 - Essential (primary) hypertension Code(s): I10 - Essential (primary) hypertension Status: Acute Assessment and Plan: pressure is better after instituting diuresis and antihypertensives, continue Lasix, lisinopril, Coreg, and spironolactone (3) Elevated troponin: Code(s): R79.89 - Other specified abnormal findings of blood chemistry Status: Acute Assessment and Plan: probably secondary to heart failure. Did not suspect any acute coronary event (4) Coronary artery disease: Code(s): I25.10 - Atherosclerotic heart disease of [place] coronary artery without angina pectoris Status: Acute Assessment and Plan: continue beta-kira and low-dose aspirin with statin also. cath 12/25 stented [place] RCA and posterial lateral with patent WANG graft to LAD and saphenous vein graft to obtuse marginal DS: Summary Hospital Course Hospital Course: 59-year-old hypertensive male status post coronary bypass some 5 years ago presented to the hospital with increasing shortness of breath and edema. Found to be in congestive heart failure with echocardiogram revealing ejection fraction of 20-25%. Cardiac catheterization revealed patent grafts of the WANG to the LAD and a saphenous vein graft to the obtuse marginal. His [place] RCA and posterior lateral branch were stented. With diuresis, addition of FAISAL-inhibitor, sees and beta-kira, his symptomatology much improved and edema subsided. Discharged home to follow-up with cardiology on 01/08 and will have basic metabolic profile 01/05 Time Spent with Patient Time attestation: Total time spent providing and/or coordinating discharge services: 35 minutes Exam Narrative: Exam Narrative: condition on discharge blood pressure 130/64 pulse 72 saturating 95% room air lungs clear CV regular rate rhythm abdomen benign extremities still some trace edema lower extremities he was up and about still mild dyspnea with walking but stable and much improved over admission, will be discharged home DS: Data Data Completed and Pending Labs on day of discharge: Labs from last 24 hours 12/27/19 12/27/19 05:10 05:10 WBC 11.0 H RBC 4.20 L Hgb 12.6 L Hct 39.6 L MCV 94.3 MCH 30.0 MCHC 31.8 L RDW 13.8 Plt Count 342 MPV 9.3 Immature Gran % (Auto) 0.4 Neut % (Auto) 79.3 H Lymph % (Auto) 7.0 L [place] % (Auto) 12.5 H Eos % (Auto) 0.4 Baso % (Auto) 0.4 Lymph # (Auto) 0.77 L [place] # (Auto) 1.4 H Eos # (Auto) 0.0 Baso # (Auto) 0.0 Abs Immat Gran (auto) 0.04 H Absolute Neuts (auto) 8.7 H Absolute Nucleated RBC 0.0 Nucleated RBC % 0.0 Sodium 133 L Potassium 4.0 Chloride 97 L Carbon Dioxide 29 Anion Gap 7 L BUN 27 H Creatinine 1.00 Estim Creat Clear Calc 99 Estimated GFR > 60 Glucose 122 H Calcium 8.8 Magnesium 2.0 Discharge Plan Discharge Attending physician on discharge: Rivas Burgos Consulting providers: Epi Ratliff Discharging Clinician: Rivas Burgos Patient Disposition: Home, Self-Care Activity: other - see discharge instructions Diet: heart healthy and low sodium Wound Care Instructio
== END 2019-12-27 18:30 | disposition home or self-care (01) | DRG 175 ==
LOC: ANHED 20:49 → ANH2MED 12-24 01:46
PROVIDERS: Emergency Medicine; Internal Medicine Cardiovascular Disease; Nurse Practitioner Adult Health; Admitting Provider Internal Medicine; Emergency Provider Emergency Medicine; PCP Family Medicine Adolescent Medicine; Visit Provider Internal Medicine
PROC: 027135Z Dilation of Coronary Artery, Two Arteries with Two Drug-eluting Intraluminal Devices, Percutaneous Approach (ICD-10-PCS; 2019-12-26 09:30)
PROC: 4A023N7 Measurement of Cardiac Sampling and Pressure, Left Heart, Percutaneous Approach (ICD-10-PCS; CPT 93459; 2019-12-26 09:30)
PROC: 027135Z Dilation of Coronary Artery, Two Arteries with Two Drug-eluting Intraluminal Devices, Percutaneous Approach (ICD-10-PCS; 2019-12-26 09:30)
PROC: 027135Z Dilation of Coronary Artery, Two Arteries with Two Drug-eluting Intraluminal Devices, Percutaneous Approach (ICD-10-PCS; 2019-12-26 09:30)
DX: I11.0 Hypertensive heart disease with heart failure (principal); I50.23 Acute on chronic systolic (congestive) heart failure; I25.10 Atherosclerotic heart disease of native coronary artery without angina pectoris; Z23 Encounter for immunization; R79.89 Other specified abnormal findings of blood chemistry; K21.9 Gastro-esophageal reflux disease without esophagitis; G47.33 Obstructive sleep apnea (adult) (pediatric); I47.2 Ventricular tachycardia; I25.5 Ischemic cardiomyopathy; E78.5 Hyperlipidemia, unspecified; E66.9 Obesity, unspecified; Z68.35 Body mass index [BMI] 35.0-35.9, adult; Z95.1 Presence of aortocoronary bypass graft; Z91.14 Patient's other noncompliance with medication regimen; I25.2 Old myocardial infarction
CPT/HCPCS: 36415; 71046; 80048; 80061; 83735; 83880; 84443; 84484; 85025; 85610; 85730; 90471; 90686; 92978; 93005; 93459; 96372; 96374; 96375; 96376; 99285; A9270; C1725; C1753; C1760; C1769; C1874; C1887; C1894; C8929; C9600; G0008; G0269; G0378; G0379; J0583; J1644; J1650; J1940; J2250; J3010; J7040; Q9957

== ENCOUNTER 2020-01-06 13:21 | Outpatient (CLI) | payer MEDICAID, SELFPAY ==
[2020-01-06 16:10] LABS: Magnesium 2.1 mg/dL (1.6-2.3)
[2020-01-06 16:12] LABS: Anion Gap 10 mmol/L (8-16); Blood Urea Nitrogen 21 mg/dL (9-20); Calcium 9.7 mg/dL (8.4-10.2); Carbon Dioxide 33 mmol/L (22-30); Chloride 94 mmol/L (98-107); Estimated Glomerular Filt Rate > 60; Glucose 98 mg/dL (75-110); Potassium 4.8 mmol/L (3.4-5.0); Sodium 137 mmol/L (137-145)
== END 2020-01-06 13:22 | disposition home or self-care (01) ==
LOC: ANHLAB 13:24
PROVIDERS: Nurse Practitioner Adult Health; PCP Family Medicine Adolescent Medicine; Visit Provider Internal Medicine
DX: I50.23 Acute on chronic systolic (congestive) heart failure (principal); I47.2 Ventricular tachycardia
CPT/HCPCS: 36415; 80048; 83735

== ENCOUNTER 2020-06-04 13:30 | Outpatient (RCR) | payer OTHER, SELFPAY ==
--- NOTE | 2020-06-11 13:39 | PCCPR ---
Guillermo has been absent all week no call or show LM requesting he give us a call with an update of his plan for return.
--- NOTE | 2020-06-17 15:26 | PCCPR ---
Addendum entered by Sarita Reeder RN 06/22/20 13:41: Continued absence without call. LM for Guillermo encouraged him to give us a call and update on his plan for return or not. Original Note: Spoke with Guillermo. He states he has been having terrible back pain. He states he is overdoing it and has been transporting heavy amounts of wood around his house. Plans to return tomorrow.
--- NOTE | 2020-06-25 17:20 | PCCPR ---
Absent without call or show LM message requesting him to call us let us know his plan to continue or dc.
== END 2020-06-29 15:07 | disposition home or self-care (01) ==
LOC: ANHCPREHAB 13:30
PROVIDERS: Family Provider Family Medicine Adolescent Medicine; PCP Family Medicine Adolescent Medicine; Visit Provider Internal Medicine Cardiovascular Disease
DX: Z95.1 Presence of aortocoronary bypass graft (principal); Z95.5 Presence of coronary angioplasty implant and graft; I50.89 Other heart failure
CPT/HCPCS: 93798

== ENCOUNTER 2021-01-09 17:06 | Emergency (ER) | payer OTHER, SELFPAY ==
--- NOTE | ~2021-01-09 | CT_ITS ---
EXAMINATION: CT thoracic lumbar wo con DATE: 01/09/2021 22:21 INDICATION: Back pain post fall TECHNIQUE: Computed tomography (CT) of the thoracic and lumbar spine was performed without intravenou s contrast. Automated exposure control and iterative reconstruction technique were employed. The dose -length product was 2035.05 mGy-cm. COMPARISON: Radiographs dated 01/09/2021 FINDINGS: There is solid fusion of bridging osteophytes extending from T2 through L1 consistent with diffuse id iopathic skeletal hyperostosis (DISH). There is an acute fracture extending across the anterior osteo phytes at T11 which extends across a anteroinferior corner of the vertebral body into the disc space. No evident retropulsion or fracture of the posterior elements. There is however a small epidural hem atoma posterior to the T11 vertebral body extending along the left anterior side of the cord which re sults in mild central canal stenosis. No other fractures identified. Vertebral body heights are compa l throughout. There are additional solidly bridging osteophytes extending across the left side of the L3-L4 and L4-L5 disc spaces. Multilevel moderate disc height loss throughout much of the thoracic sp ine. Additional moderate disc height loss at L2-L3 through L5-S1 and mild at L1-L2. Diffuse epidural lipomatosis throughout the thoracic and lumbar spine. In addition there are disc bulges throughout th e lumbar spine resulting in multilevel mild central canal stenosis. There is multilevel mild bilatera l neural foraminal stenosis throughout much of the thoracic spine and mild and moderate neural forami nal stenosis bilaterally throughout the lumbar spine. There is developing ankylosis across the bilate ral sacroiliac joints. There is increased sclerosis at the visualized posterior medial aspect of the left femoral head raising the possibility of osteonecrosis. Trace bilateral pleural effusions with de pendent atelectasis in the bilateral lower lobes. IMPRESSION: 1. Rigid spine with solid bridging osteophytes from T2 through L1 consistent with diffuse idiopathic skeletal hyperostosis (DISH). There is a fracture across anterior osteophyte and anteroinferior corne r of the T11 vertebral body with suggestion of a small epidural hematoma at this level resulting in m ild central canal stenosis. Dr. Morin discussed these findings with Dr. Cohn at 4:00 PM on 2019. 2. Moderate thoracic and lumbar spondylosis. 3. Possible osteonecrosis at the left femoral head. Would consider further imaging with either plain radiographs, MRI or CT as clinically indicated. Reviewed, dictated and finalized at location A. IMPRESSION: 1. Rigid spine with solid bridging osteophytes from T2 through L1 consistent wi th diffuse idiopathic skeletal hyperostosis (DISH). There is a fracture across anterior osteophyte and anteroinferior corner of the T11 vertebral body with hoyos ggestion of a small epidural hematoma at this level resulting in mild central c anal stenosis. Dr. Morin discussed these findings with Dr. Cohn at 4:00 PM on 01/11/2020. 2. Moderate thoracic and lumbar spondylosis. 3. Possible osteonecrosis at the left femoral head. Would consider further imag ing with either plain radiographs, MRI or CT as clinically indicated.
--- NOTE | ~2021-01-09 | CT_ITS ---
EXAMINATION: 1. CT facial & cervical spine wo DATE: 01/09/2021 21:23 INDICATION: Head injury TECHNIQUE: 1. Computed tomography (CT) of the maxillofacial region and of the cervical spine were performed with out intravenous contrast. Sagittal and coronal reconstructions of both regions were obtained. Automat ed exposure control and iterative reconstruction technique were employed. The dose-length product was 553.20 mGy-cm. COMPARISON: None. FINDINGS: Maxillofacial CT: Right malar soft tissue swelling with 3.0 x 1.8 x 3.3 cm inframalar subcutaneous hematoma. Additional soft tissue swelling with subcutaneous edema and tiny hematoma overlying the right side of the paula ble. No maxillofacial fractures. Specifically the marie of the orbits, the paranasal sinuses, the zyg omatic arches, mandible and pterygoid plates are all intact. Extensive dental disease with multiple d ental caries. There are also large periapical erosions surrounding the left maxillary canine, the rig ht maxillary first molar and the left mandibular first premolar. The paranasal sinuses, mastoid air c ells and middle ear cavities are clear. Cervical spine CT: Mild cervical thoracic dextrocurvature. Sagittal alignment is normal. Vertebral body heights are norm al. No acute fracture. There are prominent anterior osteophytes at the mid to lower cervical spine. M oderate disc height loss at C4-C5 through C7-T1. Mild disc height loss at C2-C3 and C3-C4. There are disc bulges and posterior disc osteophyte complexes resulting in mild central canal stenosis at multi ple levels in the mid to inferior cervical spine. Multilevel moderate right-sided and severe left-iris ed cervical facet osteoarthritis. There is fusion across the left C2-C3 facet joint. This contributes to multilevel mild to moderate right-sided and moderate left-sided neural foraminal stenosis. Visual ized airway and apices of the lungs are clear. Cervical soft tissues are unremarkable. IMPRESSION: 1. Soft tissue swelling at the right side of the face including moderate sized information large subc utaneous hematoma. No maxillofacial fractures. 2. Moderate to severe cervical spondylosis. No acute osseous abnormality. 3. Extensive dental disease including several large periapical erosions. Reviewed, dictated and finalized at location A. IMPRESSION: 1. Soft tissue swelling at the right side of the face including moderate sized information large subcutaneous hematoma. No maxillofacial fractures. 2. Moderate to severe cervical spondylosis. No acute osseous abnormality. 3. Extensive dental disease including several large periapical erosions.
--- NOTE | ~2021-01-09 | XR_ITS ---
EXAMINATION: XR thoracic spine 3V, XR lumbar spine 2-3V DATE: 01/09/2021 21:18 INDICATION: Mid and lower back pain post fall TECHNIQUE: 1. One AP, lateral and lateral swimmer's views of the thoracic spine were obtained. 2. AP, lateral and coned-down lateral lumbosacral views of the lumbar spine were obtained. COMPARISON: 12/23/2019 FINDINGS: Thoracic spine: 15 degree upper thoracic levoscoliosis. Sagittal alignment is normal. Vertebral body heights are norm al. Mild disc height loss at a few levels in the upper thoracic spine. There are bridging osteophytes extending from the upper thoracic to the upper lumbar spine, consistent with diffuse idiopathic skel etal hyperostosis (DISH). There is a chronic linear lucency extending across the anterior osteophytes at the level of the inferior aspect of T11 which appears likely but not definitively to been present on the prior chest radiograph dated 12/23/2019 . Visualized portion of the lungs are clear with no pl eural effusion or pneumothorax. Median sternotomy wires and mediastinal surgical clips are seen, like ly from prior coronary artery bypass grafting. Suture anchors at the left humeral head consistent wit h prior rotator cuff repair. Lumbar spine: Alignment is normal. Vertebral body heights are normal. Moderate disc height loss at L3-4 through L5- S1 and mild disc height loss at L2-L3. There are additional large bridging osteophytes at the left si de of L3-L4 and L4-L5. Sacral arches are intact. Mild osteoarthritis of the bilateral sacroiliac join ts. IMPRESSION: 1. Extensive solidly bridging osteophytes extending from the upper thoracic to the upper lumbar spine with linear lucency projecting across the osteophytes at the level of T11. Although likely chronic, would consider CT for more sensitive/specific assessment to exclude acute fracture. 2. Moderate lumbar spondylosis. Reviewed, dictated and finalized at location A. IMPRESSION: 1. Extensive solidly bridging osteophytes extending from the upper thoracic to the upper lumbar spine with linear lucency projecting across the osteophytes at the level of T11. Although likely chronic, would consider CT for more sensitiv e/specific assessment to exclude acute fracture. 2. Moderate lumbar spondylosis.
--- NOTE | ~2021-01-09 | CT_ITS ---
EXAMINATION: CT brain wo con DATE: 01/09/2021 21:23 INDICATION: Head injury with laceration to the forehead and right sided facial swelling post fall TECHNIQUE: Computed tomography (CT) of the head was performed without intravenous contrast. Sagittal and coronal reconstructions were performed. The mA was adjusted according to patient size. Iterative reconstruction technique was employed. The dose-length product was 681.00 mGy-cm. COMPARISON: None FINDINGS: Soft tissue swelling in the right malar region. Likely developmental asymmetry to the posterior skull . No fractures identified. No acute intracranial hemorrhage, acute infarction or abnormal extra axial fluid collection. Ventricles are normal and symmetric. No mass/mass effect. The orbits, paranasal si nuses and mastoid air cells are normal. IMPRESSION: 1. No fracture or acute intracranial process. Reviewed, dictated and finalized at location A.
[2021-01-09 17:12] VITALS: BP 131/78; PULSE 84; RESP 18; TEMP 36.3; O2SAT 100
[2021-01-09 19:59] VITALS: BP 117/76; PULSE 69; RESP 18; TEMP 36.6; O2SAT 98
[2021-01-09] MEDS: TETANUS,DIPHTHERIA,AC PERTUSSIS ADULT (0.5 ML) BOOSTRIX IM (21:01)
[2021-01-09] MEDS: ACETAMINOPHEN 500 MG TABLET 1000 MG PO (21:01)
[2021-01-09] MEDS: diazePAM INJ (*CRX) 10 MG/2 ML SYRINGE 2.5 MG IM (21:01)
--- NOTE | 2021-01-09 21:23 | ED.WOUNDLAC ---
HPI - Wound/Laceration General Chief Complaint: Wound/Laceration <CHAVO Steiner Last Filed: 01/10/21 00:40> Stated Complaint: fell, hit head, has laceration per pt. <CHAVO Steiner Last Filed: 01/10/21 00:40> Time Seen by Provider: 01/09/21 20:01 <CHAVO Steiner Last Filed: 01/10/21 00:40> Source: patient <CHAVO Steiner Last Filed: 01/10/21 00:40> Mode of arrival: ambulatory <CHAVO Steiner Last Filed: 01/10/21 00:40> Limitations: no limitations <CHAVO Steiner Last Filed: 01/10/21 00:40> History of Present Illness HPI narrative: This is a 60 year old male that presents to the ER for a ground level fall today with head injury. Reports he slipped and fell and hit his head on a table. Reports a laceration to the area. He is unsure if he is up to date on tetanus. Reports since the fall he has had neck pain and back spasms. Reports bruising and pain to the right cheek. Denies loss of consciousness, vision changes, numbness, or weakness. <CHAVO Steiner Last Filed: 01/10/21 00:40> Related Data Home Medications: Home Medications Medication Instructions Recorded Confirmed acetaminophen [Tylenol] 650 mg Q6-8H PRN 04/28/20 04/28/20 ferrous sulfate 65 mg PO DAILY 05/19/20 05/19/20 <CHAVO Steiner Last Filed: 01/10/21 00:40> Allergies/Adverse Reactions: Allergies Allergy/AdvReac Type Severity Reaction Status Date / Time No Known Allergies Allergy Verified 07/03/13 09:57 <CHAVO Steiner Last Filed: 01/10/21 00:40> Review of Systems Review of Systems: CONSTITUTIONAL: Denies fever EYES: Denies visual changes GASTROINTESTINAL: Denies vomiting MUSCULOSKELETAL: Reports back pain, joint pain, and myalgia. NEUROLOGIC: Denies headache, numbness, or weakness. <Zakia Dominguez PA-C - Last Filed: 01/10/21 00:40> All systems reviewed & are unremarkable except as noted in HPI and below <Zakia Dominguez PA-C - Last Filed: 01/10/21 00:40> [facility] Past Medical History Medical History: Medical History (Updated 01/11/21 @ 00:00 by Radha Sloan) CHF (congestive heart failure) Coronary artery disease Dilatation of esophagus Essential hypertension GERD (gastroesophageal reflux disease) Hyperlipidemia Ischemic cardiomyopathy Obstructive sleep apnea on CPAP <CHAVO Steiner Last Filed: 01/10/21 00:40> Surgical History Surgical History: Surgical History History of bilateral carpal tunnel release History of repair of anterior cruciate ligament of right knee History of repair of left rotator cuff x2 History of repair of right rotator cuff Hx of CABG 2 vessel July 2014 at [facility] <CHAVO Steiner Last Filed: 01/10/21 00:40> Family History Family History: Family History Mother Diabetes mellitus Father Prostate carcinoma Sibling Intellectual disability younger sister <CHAVO Steiner Last Filed: 01/10/21 00:40> Social History Social History: Social History Smoking packs per day: 1 Smoking cigarettes per day: 20.0 Years smoked: 10 Smoking pack-years: 10.00 Smoking status: Former smoker Tobacco type: cigarettes Alcohol intake: former Drinks per week: 12 Substance use: never Substance use type: does not use Gender identity (if verbalized by the patient): Male Spiritual care concerns: No <CHAVO Steiner Last Filed: 01/10/21 00:40> Exam Narrative: GENERAL: Well-appearing, well-nourished, and in no acute distress. HEAD: Normocephalic. Four centimeter superficial linear laceration on the forehead EYES: PERRLA and EOMI. ENT: Nares clear, no rhinorrhea or epistaxis. Mucous membranes moist. Oropharynx without tonsillar hypertrophy exudate o
[2021-01-09 22:22] VITALS: BP 101/65; PULSE 83; RESP 20; TEMP 36.6; O2SAT 100
[2021-01-09] MEDS: KETOROLAC 30 MG/ML VIAL (*BKC) IM (23:44)
--- NOTE | 2021-01-10 00:19 | PC.NURSE ---
Patient states he wants to leave. I cannot wait any longer, my ride is here and I have to go home. ERP notified.
== END 2021-01-10 00:30 | disposition home or self-care (01) ==
PROVIDERS: Emergency Provider Emergency Medicine; PCP Family Medicine Adolescent Medicine
DX: S01.81XA Laceration without foreign body of other part of head, initial encounter (principal); S16.1XXA Strain of muscle, fascia and tendon at neck level, initial encounter; I25.10 Atherosclerotic heart disease of native coronary artery without angina pectoris; I11.0 Hypertensive heart disease with heart failure; I50.9 Heart failure, unspecified; E78.5 Hyperlipidemia, unspecified; Z87.891 Personal history of nicotine dependence; Z23 Encounter for immunization; W01.190A Fall on same level from slipping, tripping and stumbling with subsequent striking against furniture, initial encounter
CPT/HCPCS: 12013; 70450; 70486; 72072; 72100; 72125; 72128; 72131; 90471; 90715; 96372; 99284; A9270; J1885; J3360

== ENCOUNTER 2024-03-19 17:38 | Emergency (ER) | payer SELFPAY ==
--- NOTE | 2024-03-19 17:42 | ED_ITS ---
HPI - URI/Sore Throat General Chief Complaint: Upper Respiratory Infection Stated Complaint: Sinus Time Seen by Provider: 03/19/24 17:40 Source: patient Mode of arrival: ambulatory Limitations: no limitations History of Present Illness HPI Narrative: Patient is a 63-year-old male who presents with sinus congestion, pressure, pain, headache for 2 weeks. Patient denies any fever, chills, nausea, vomiting, diarrhea. Patient has history of CABG x2. Patient has tried [id number] medication with no relief. Related Data Home Medications ?Medication ?Instructions ?Recorded ?Confirmed ?Last Taken ?Type acetaminophen 325 mg tablet 650 mg Q6-8H PRN pain 04/28/20 04/28/20 Unknown History (Tylenol) ferrous sulfate 325 mg (65 mg 65 mg PO DAILY 05/19/20 05/19/20 Unknown History iron) capsule,extended release Allergies Allergy/AdvReac Type Severity Reaction Status Date / Time No Known Allergies Allergy Verified 03/19/24 17:51 Review of Systems Review of Systems: All systems reviewed & are unremarkable except as noted in HPI and below Constitutional: Constitutional: Denies body ache(s), Denies chills, Denies fatigue, Denies fever(s), Denies headache(s), Denies malaise and Denies weakness Eyes: Eyes: Denies blurry vision, Denies itchy eyes and Denies loss of vision ENT: Denies otalgia, Denies headache(s), Reports nasal congestion, Reports sinus pain, Reports sinus pressure and Denies sore throat Cardiovascular: Cardiovascular: Denies chest pain, Denies irregular heart rhythm and Denies dyspnea Respiratory: Respiratory: Reports cough and Denies dyspnea Gastrointestinal: Gastrointestinal: Denies abdominal pain, Denies diarrhea, Denies nausea and Denies vomiting Musculoskeletal: Musculoskeletal: Denies back pain, Denies myalgias and Denies arthralgias Integumentary/Breasts: Skin/Breast: Denies pruritus and Denies rash Neurologic: Denies headache(s), Denies loss of vision and Denies weakness Psychiatric: Psychiatric: Reports no additional psychiatric complaints Endocrine: Endocrine: Denies fatigue Allergic/Immunologic: Allergic/Immunologic: Denies itchy eyes PMFSH Past Medical History Medical History (Updated 03/19/24 @ 18:02 by Greer Gaytan, [employer]) Ischemic cardiomyopathy Hyperlipidemia Essential hypertension GERD (gastroesophageal reflux disease) Dilatation of esophagus Obstructive sleep apnea on CPAP CHF (congestive heart failure) Coronary artery disease Surgical History Surgical History History of repair of anterior cruciate ligament of right knee History of repair of left rotator cuff x2 History of repair of right rotator cuff History of bilateral carpal tunnel release Hx of CABG 2 vessel July 2014 at [place] Family History Family History Mother Diabetes mellitus Father Prostate carcinoma Sibling Intellectual disability younger sister Social History Social History Smoking packs per day: 1 Smoking cigarettes per day: 20.0 Years smoked: 10 Smoking pack-years: 10.00 Smoking status: Former smoker Tobacco type: cigarettes Alcohol intake: former Drinks per week: 12 Substance use: never Substance use type: does not use Gender identity (if verbalized by the patient): Male Spiritual care concerns: No Comments At time of signature, agree with nursing past medical, surgical, social and family history. There is no relevant family history pertinent to the presenting complaint. Exam Const: General: cooperative, healthy appearing, comfortable, no acute distress and well nourished Nutritional Appearance: well nourished Orientation/consciousness: patient oriented x3 Limitations: no limitations HENMT: Head: normal to inspection, normocephalic and atraumatic Ears: hearing grossly normal bilaterally, external ears normal, TM's normal bilaterally, EAC's normal and no periauricular adenopathy Face/Nose/Sinus: Normal external nose present, Abnormal mucous membranes and turbinates present erythematous bilateral and diffuse, normal facial exam, face symmetric and Facial tenderness on exam of face and sinuses Face and sinus: normal facial exam and face symmetric Mouth: Yes Normal oral and palatal mucosa present, Yes lip normal, Yes tongue normal, Yes Normal salivary glands and ducts present, Yes oropharynx normal and Yes moist mucous membranes Teeth and gingiva: dentition normal Throat: posterior oropharynx normal, tonsils normal and uvula midline Eyes: General: appearance normal, both eyes and all related structures Alignment and Position: alignment normal and position normal Periorbital: periorbital findings normal Eyelids: eyelids normal Pupils: Equal, round and reactive pupils present Neck: Neck: normal visual inspection, full ROM, no lymphadenopathy and supple Chest: Chest palpation & inspection: normal inspection of the chest and normal palpation of entire chest wall Resp: Effort & Inspection: normal respiratory effort and able to speak in complete sentences Auscultation: clear to auscultation bilaterally, no crackles, no rales, no rhonchi and no wheezes Cardio: Rate: regular rate Rhythm: regular rhythm Heart sounds: S1 normal heart sound present and S2 normal heart sound present GI: Inspection: normal to inspection Skin: General skin exam: normal color and no rashes or lesions noted Neuro: General: patient oriented x3 and moves all extremities Cranial nerves: Yes Equal, round and reactive pupils present Speech: normal speech Gait exam (Neuro): Normal gait present Extrem: General: normal to inspection, full ROM and no edema Psych: Appearance: grossly normal and well kempt Mental Status: mental status grossly normal Speech and movement: Normal speech and movement present Affect: normal affect Attitude: cooperative Thought process: Normal thought process present Course Course Emergency Course: Discharge instructions reviewed with patient, as well as provided in writing per nursing staff. The instructions also include specific and strict return/GO TO THE ER as well as f/u information. All questions have been answered, and the patient deny any further questions with discharge and discharge plan. Portions of this record may have been created with voice recognition software Level of Care: Express Care Visit Vital Signs Vital signs: Reviewed MDM - URI/Sore Throat MDM Narrative Medical decision making narrative: Pt well hydrated appearing, in no respiratory distress, hemodynamically stable. Recommend supportive care. The patient is stable at time of discharge the clinical impression was discussed and the patient was given the opportunity to ask questions, which were addressed as completely as possible given the information available at present. Anticipatory guidance and return to care precautions were discussed and the importance of primary care follow-up was stressed and encouraged. The patient voiced understanding of the plan, indications to return, and the need for follow-up. Differential diagnosis considered: Clark virus, strep pharyngitis, allergic rhinitis, upper respiratory tract infection, sinusitis, rhinosinusitis, nasopharyngitis. viral pharyngitis, otitis media, otitis externa, otitis effusion, foreign body, cerumen impaction, viral syndrome, and influenza.? Exam findings show no acute concerns or changes; patient is non-toxic appearing and is in no distress.? Patient is appropriate for outpatient treatment and follow- up.? Medical Records Attestation: I reviewed the patient's medical records. Discharge Plan Discharge Clinical Impression: Sinusitis Qualifiers: Sinusitis location: maxillary Chronicity: acute Recurrence: non-recurrent Qualified Code(s): J01.00 - Acute maxillary sinusitis, unspecified Patient Disposition: Home, Self-Care Condition: Stable Instructions: Sinusitis (ED) Additional Instructions: Take steroids in the morning with food. Take antibiotics as prescribed until completed. Symptomatic treatment of a sinus infection aims to relieve symptoms. These treatments do not shorten the duration of illness. Nonprescription pain medications, such as acetaminophen (eg, Tylenol) or ibuprofen (eg, Motrin, Advil), are recommended for pain. Flushing the nose and sinuses with a saline solution several times per day has been proven to decrease pain associated with congestion and shorten the duration of symptoms. Nasal steroids (such as Flonase, 2 sprays in each nostril daily) can help to reduce swelling inside the nose, usually within two to three days. These drugs have few side effects and relieve symptoms in most people. Oral decongestants (pseudoephedrine and phenylephrine) may be helpful if you have associated symptoms of ear pain or fullness. Nasal decongestant sprays, including oxymetazoline (Afrin) and phenylephrine (Mio-Synephrine), can be used to temporarily treat congestion. However, these sprays should not be used for more than two to three days due to the risk of rebound congestion (when the nose becomes congested constantly unless the medication is used repeatedly), possible addiction, and long-term consequences o f frequent use, including persistent nasal dryness and crusting, which is very difficult to treat once it has developed. Medications to thin secretions (such as guaifenesin) may help to clear mucus. Please follow-up with your primary care doctor in the next 1-2 days. If you cannot follow-up with your primary care doctor please go to the ED for any urgent issues. If you have any worsening of symptoms or any other concerns please go to the ED immediately. Patient Language: Divehi Prescriptions: New prednisone 20 mg tablet 40 mg PO DAILY 5 Days Qty: 10 0RF amoxicillin-pot clavulanate 875-125 mg tablet 1 tablet PO Q12H 10 Days Qty: 20 0RF No Action atorvastatin 40 mg Tablet 40 mg PO HS Qty: 30 3RF carvedilol [Coreg] 12.5 mg Tablet 12.5 mg PO Q12HR Qty: 60 3RF lisinopril 20 mg Tablet 20 mg PO DAILY Qty: 30 3RF spironolactone 25 mg Tablet 25 mg PO QAM Qty: 30 3RF furosemide 40 mg tablet 40 mg PO BID Qty: 60 3RF clopidogrel 75 mg tablet 75 mg PO DAILY Qty: 30 3RF pantoprazole 40 mg Tablet,Delayed Release (Dr/Ec) 40 mg PO QAM Qty: 30 3RF acetaminophen [Tylenol] 325 mg Tablet 650 mg Q6-8H PRN (Reason: pain) ferrous sulfate 325 mg (65 mg iron) Capsule, Extended Release 65 mg PO DAILY Follow-up/Referrals: Reece Umanzor MD [Primary Care Provider] - 3 Days Stand Alone Forms: Work/School Release IP Time of Disposition: 18:14
[2024-03-19 17:49] VITALS: BP 95/56; PULSE 69; RESP 16; TEMP 35.9; O2SAT 99
== END 2024-03-19 18:20 | disposition home or self-care (01) ==
PROVIDERS: Emergency Provider Nurse Practitioner Family; PCP Family Medicine Adolescent Medicine
DX: J01.00 Acute maxillary sinusitis, unspecified (principal); Z87.891 Personal history of nicotine dependence; I11.0 Hypertensive heart disease with heart failure; I50.9 Heart failure, unspecified; I25.10 Atherosclerotic heart disease of native coronary artery without angina pectoris; I25.5 Ischemic cardiomyopathy; E78.5 Hyperlipidemia, unspecified; K21.9 Gastro-esophageal reflux disease without esophagitis; G47.33 Obstructive sleep apnea (adult) (pediatric)
CPT/HCPCS: 99213; G0463

== ENCOUNTER 2024-04-04 17:08 | Inpatient (IN) | payer OTHER, SELFPAY ==
[2024-04-04] VITALS (19 sets, daily range): BP systolic 75–101; BP diastolic 42–69; PULSE 70–82; RESP 14–26; TEMP 36.7; O2SAT 98–100; BMI 32.3
--- NOTE | ~2024-04-04 | XR_ITS ---
XR knee LT 3V Ordering provider: Álvaro Souza MD History: . pain . Comparison: None. FINDINGS: BONES: No acute fracture or dislocation. JOINT SPACES: Marginal osteophytes in the patella. SOFT TISSUES: Normal. Ossification in the distal end of the quadriceps tendon. IMPRESSION: No acute osseous abnormality left knee. Reviewed, dictated and finalized at location A. IOVASCULAR DISEASE SPECIALIST
--- NOTE | ~2024-04-04 | XR_ITS ---
XR chest 1V Ordering provider: Magnolia Monae History: 63 years Male with . cough, dyspnea . Comparison: December 23, 2019 FINDINGS: MEDIASTINUM: The cardiac silhouette is slightly enlarged. Postoperative changes in the mediastinum. LUNGS: No pneumothorax. Opacification in the right lower lobe area suggestive of atelectasis versus p neumonia. OTHER: No free air under the diaphragm. Degenerative changes of the spine IMPRESSION: Right basilar atelectasis versus pneumonia with pleural effusion. Reviewed, dictated and finalized at location A. TH COMMUNICATIONS SPECIALIST
--- NOTE | 2024-04-04 17:28 | ED_ITS ---
HPI - URI/Sore Throat General Chief Complaint: Upper Respiratory Infection <Magnolia Monae PA-C - Last Filed: 04/04/24 17:32> Stated Complaint: UPPER RESP X1 MONTH. SOB WITH EXERTION <Magnolia Monae PA-C - Last Filed: 04/04/24 17:32> Time Seen by Provider: 04/04/24 18:22 <Magnolia Monae PA-C - Last Filed: 04/04/24 17:32> Focused HPI: 63-year-old male with history of CHF and hyperlipidemia presents to the emergency department for exertional dyspnea, cough and fatigue for 1 month. Patient reports progressive worsening dyspnea. Reports a productive cough with clear sputum and chest tightness with coughing. No hemoptysis. States he does have some lower extremity edema that is increased from his baseline despite taking his Lasix. Denies fever, nausea vomiting. Reports decreased po intake. Pt recently finishes Augmentin for a sinus infection. Pt states his BP is normally 90s/60s. GENERAL: Well-appearing, well-nourished, and in no acute distress. HEAD: Normocephalic, atraumatic. CHEST: Clear to auscultation. ?No respiratory distress. HEART: Regular rate and rhythm.? NEURO: ?Alert and oriented x3. Patient screened in triage and initial orders placed.? ?Additional care and disposition to be based upon?diagnostic testing and treatment. <Magnolia Monae PA-C - Last Filed: 04/04/24 17:32> History of Present Illness HPI Narrative: agree with HPI. Sinus congestion progressive weakness developing into exertional shortness of breath and cough. No chest pain. No known sick contacts. <Álvaro Souza MD - Last Filed: 04/04/24 21:28> Related Data Home Medications: Home Medications ?Medication ?Instructions ?Recorded ?Confirmed ?Last Taken ?Type acetaminophen 325 mg tablet 650 mg Q6-8H PRN pain 04/28/20 04/28/20 Unknown History (Tylenol) ferrous sulfate 325 mg (65 mg 65 mg PO DAILY 05/19/20 05/19/20 Unknown History iron) capsule,extended release <Magnolia Monae PA-C - Last Filed: 04/04/24 17:32> Allergies/Adverse Reactions: Allergies Allergy/AdvReac Type Severity Reaction Status Date / Time No Known Allergies Allergy Verified 04/04/24 17:09 <Magnolia Monae PA-C - Last Filed: 04/04/24 17:32> Review of Systems 2 Review of Systems: All systems reviewed & are unremarkable except as noted in HPI and below <Álvaro Souza MD - Last Filed: 04/04/24 21:28> Constitutional: Constitutional: Reports chills, Reports fatigue and Reports fever(s) <Álvaro Souza MD - Last Filed: 04/04/24 21:28> ENT: Reports nasal congestion and Reports sore throat <Álvaro Souza MD - Last Filed: 04/04/24 21:28> Cardiovascular: Cardiovascular: Reports no additional cardiovascular complaints <Álvaro Souza MD - Last Filed: 04/04/24 21:28> Respiratory: Respiratory: Reports cough, Reports dyspnea and Denies wheezing <Álvaro Souza MD - Last Filed: 04/04/24 21:28> Gastrointestinal: Gastrointestinal: Reports no additional gastrointestinal complaints <Álvaro Souza MD - Last Filed: 04/04/24 21:28> [facility] Past Medical History Medical History: Medical History (Updated 04/04/24 @ 21:28 by Álvaro Souza MD) Ischemic cardiomyopathy Hyperlipidemia Essential hypertension GERD (gastroesophageal reflux disease) Dilatation of esophagus Obstructive sleep apnea on CPAP CHF (congestive heart failure) Coronary artery disease <Magnolia Monae PA-C - Last Filed: 04/04/24 17:32> Surgical History Surgical History: Surgical History History of repair of anterior cruciate ligament of right knee History of repair of left rotator cuff x2 History of repair of right rotator cuff History of bilateral carpal tunnel release Hx of CABG 2 vessel July 2014 at [place] <Magnolia Monae PA-C - Last Filed: 04/04/24 17:32> Family History Family History: Family History Mother Diabetes mellitus Father Prostate carcinoma Sibling Intellectual disability younger sister <Magnolia Monae PA-C - Last Filed: 04/04/24 17:32> Social History Social History: Social History Smoking packs per day: 1 Smoking cigarettes per day: 20.0 Years smoked: 10 Smoking pack-years: 10.00 Smoking status: Former smoker Tobacco type: cigarettes Alcohol intake: former Drinks per week: 12 Substance use: never Substance use type: does not use Gender identity (if verbalized by the patient): Male Spiritual care concerns: No <Magnolia Monae PA-C - Last Filed: 04/04/24 17:32> Exam 2 Narrative: GENERAL: Well-appearing, well-nourished, and in no acute distress. HEAD: Normocephalic, atraumatic. ENT: Mucous membranes moist. CHEST: Clear to auscultation. No respiratory distress. HEART: Regular rate and rhythm. Normal peripheral pulses. ABDOMEN: Soft, nontender, nondistended. EXTREMITIES: Normal range of motion. No edema. SKIN: Warm, dry, no rash. NEURO: Alert and oriented x3. PSYCH: Normal mood and affect. <Álvaro Souza MD - Last Filed: 04/04/24 21:28> Course Course Emergency Course: Patient resting comfortably. Has received L of fluid. Normal change in blood pressure but he reports chronically low blood pressures. He has received IV antibiotics. BNP 1100 and I do not think he has overt heart failure. I do think that he has like a dry causing him to be in any acute kidney injury with some mild hyperkalemia an additional fluids of be of benefit but would like to be gentle given his heart failure history. Admit to hospitalist service. < Álvaro Souza MD - Last Filed: 04/04/24 21:28> Vital Signs Vital signs: Vital Signs Pulse Rate 80 04/04/24 17:10 Respiratory Rate 16 04/04/24 17:10 Pulse Oximetry 99 04/04/24 17:10 Oxygen Delivery Room Air 04/04/24 17:10 Temperature 98.0 F 04/04/24 17:26 Pulse Rate 71 04/04/24 20:46 Respiratory Rate 21 H 04/04/24 20:46 Blood Pressure 101/56 L 04/04/24 20:46 Pulse Oximetry 99 01/02/25 20:46 Oxygen Delivery Room Air 04/04/24 17:26 <Magnolia Monae PA-C - Last Filed: 04/04/24 17:32> Vital Signs Pulse Rate 80 04/04/24 17:10 Respiratory Rate 16 04/04/24 17:10 Pulse Oximetry 99 04/04/24 17:10 Oxygen Delivery Room Air 04/04/24 17:10 Temperature 98.0 F 04/04/24 17:26 Pulse Rate 71 04/04/24 20:46 Respiratory Rate 21 H 04/04/24 20:46 Blood Pressure 101/56 L 04/04/24 20:46 Pulse Oximetry 99 04/04/24 20:46 Oxygen Delivery Room Air 04/04/24 17:26 <Álvaro Souza MD - Last Filed: 04/04/24 21:28> MDM - URI/Sore Throat Lab Data Result diagrams: 04/04/24 18:20 04/04/24 18:20 <Magnolia Monae PA-C - Last Filed: 04/04/24 17:32> Labs: Lab Results 04/04/24 04/04/24 Range/Units 18:20 20:04 WBC 14.9 H (4.5-10.0) K/mm3 RBC 3.19 L (4.6-6.20) M/mm3 Hgb 10.4 L (14.0-18.0) g/dL Hct 31.0 L (42.0-52.0) % MCV 97.2 (80-100) fl MCH 32.6 (26-34) pg MCHC 33.5 (32-36) g/dl RDW 12.5 (11.5-14.5) % Plt Count 419 H (150-375) k/mm3 MPV 8.2 (7.4-10.4) fl Immature Gran % (Auto) 1.1 H (0-0.5) % Neut % (Auto) 81.1 H (45.5-73.1) % Lymph % (Auto) 7.6 L (18.3-44.2) % Frederick % (Auto) 7.9 (2.6-8.5) % Eos % (Auto) 1.9 (0-4.4) % Baso % (Auto) 0.4 (0.2-1.2) % Lymph # (Auto) 1.14 (0.9-3.2) K/mm3 Frederick # (Auto) 1.2 H (0.1-0.6) K/mm3 Eos # (Auto) 0.3 (0-0.3) K/mm3 Baso # (Auto) 0.1 (0.0-0.1) K/mm3 Abs Immat Gran (auto) 0.17 H (0.00-0.031) K/mm3 Absolute Neuts (auto) 12.1 H (1.3-6.7) K/mm3 Absolute Nucleated RBC 0.000 (0.0-0.012) K/mm3 Nucleated RBC % 0.0 (0.0-0.2) % Sodium 131 L (137-145) mmol/L Potassium 5.7 H (3.4-5.0) mmol/L Chloride 106 (98-107) mmol/L Carbon Dioxide 21 L (22-30) mmol/L Anion Gap 4 (4-12) mmol/L BUN 55 H D (9-20) mg/dL Creatinine 2.00 H (0.7-1.3) mg/dL Estim Creat Clear Calc 45 ml/min Estimated GFR 34 L (59 - ) Glucose 123 H (65-110) mg/dL Lactic Acid 1.2 (0.7-2.0) mmol/L Calcium 9.0 (8.4-10.2) mg/dL Magnesium 2.3 (1.6-2.3) mg/dL Total Bilirubin 0.8 (0.2-1.3) mg/dL AST 45 (17-59) U/L ALT 66 H (6-50) U/L Alkaline Phosphatase 283 H (38-126) U/L Troponin I < 0.012 (0.000-0.034) ng/mL NT-Pro-B Natriuret Pep 1130 H (19.9-100) pg/mL Total Protein 7.0 (6.3-8.2) g/dL Albumin 3.5 (3.5-5.1) g/dL Influenza A (RT-PCR) Negative (Negative) Influenza B (RT-PCR) Negative (Negative) RSV (RT-PCR) Negative (Negative) SARS-CoV-2 RNA (RT-PCR) Negative (Negative) <Magnolia Monae PA-C - Last Filed: 04/04/24 17:32> Lab Results 04/04/24 04/04/24 Range/Units 18:20 20:04 WBC 14.9 H (4.5-10.0) K/mm3 RBC 3.19 L (4.6-6.20) M/mm3 Hgb 10.4 L (14.0-18.0) g/dL Hct 31.0 L (42.0-52.0) % MCV 97.2 (80-100) fl MCH 32.6 (26-34) pg MCHC 33.5 (32-36) g/dl RDW 12.5 (11.5-14.5) % Plt Count 419 H (150-375) k/mm3 MPV 8.2 (7.4-10.4) fl Immature Gran % (Auto) 1.1 H (0-0.5) % Neut % (Auto) 81.1 H (45.5-73.1) % Lymph % (Auto) 7.6 L (18.3-44.2) % Frederick % (Auto) 7.9 (2.6-8.5) % Eos % (Auto) 1.9 (0-4.4) % Baso % (Auto) 0.4 (0.2-1.2) % Lymph # (Auto) 1.14 (0.9-3.2) K/mm3 Frederick # (Auto) 1.2 H (0.1-0.6) K/mm3 Eos # (Auto) 0.3 (0-0.3) K/mm3 Baso # (Auto) 0.1 (0.0-0.1) K/mm3 Abs Immat Gran (auto) 0.17 H (0.00-0.031) K/mm3 Absolute Neuts (auto) 12.1 H (1.3-6.7) K/mm3 Absolute Nucleated RBC 0.000 (0.0-0.012) K/mm3 Nucleated RBC % 0.0 (0.0-0.2) % Sodium 131 L (137-145) mmol/L Potassium 5.7 H (3.4-5.0) mmol/L Chloride 106 (98-107) mmol/L Carbon Dioxide 21 L (22-30) mmol/L Anion Gap 4 (4-12) mmol/L BUN 55 H D (9-20) mg/dL Creatinine 2.00 H (0.7-1.3) mg/dL Estim Creat Clear Calc 45 ml/min Estimated GFR 34 L (59 - ) Glucose 123 H (65-110) mg/dL Lactic Acid 1.2 (0.7-2.0) mmol/L Calcium 9.0 (8.4-10.2) mg/dL Magnesium 2.3 (1.6-2.3) mg/dL Total Bilirubin 0.8 (0.2-1.3) mg/dL AST 45 (17-59) U/L ALT 66 H (6-50) U/L Alkaline Phosphatase 283 H (38-126) U/L Troponin I < 0.012 (0.000-0.034) ng/mL NT-Pro-B Natriuret Pep 1130 H (19.9-100) pg/mL Total Protein 7.0 (6.3-8.2) g/dL Albumin 3.5 (3.5-5.1) g/dL Influenza A (RT-PCR) Negative (Negative) Influenza B (RT-PCR) Negative (Negative) RSV (RT-PCR) Negative (Negative) SARS-CoV-2 RNA (RT-PCR) Negative (Negative) <Álvaro Souza MD - Last Filed: 04/04/24 21:28> Imaging Data Radiologist's impression: ITS Impressions Chest X-Ray 04/04/24 18:54 IMPRESSION: Right basilar atelectasis versus pneumonia with pleural effusion. Knee X-Ray 04/04/24 20:11 IMPRESSION: No acute osseous abnormality left knee. <Álvaro Souza MD - Last Filed: 04/04/24 21:28> ECG Data EKG #1: ECG completion date: 04/04/24 <Álvaro Souza MD - Last Filed: 04/04/24 21:28> ECG completion time: 18:22 <Álvaro Souza MD - Last Filed: 04/04/24 21:28> EKG Interpretation: normal rate (82), sinus rhythm, non-specific ST changes, normal QRS, normal QT and NL axis <Álvaro Souza MD - Last Filed: 04/04/24 21:28> Discharge Plan Discharge Clinical Impression: Pneumonia, KAY (acute kidney injury), Hyperkalemia <Magnolia Monae PA-C - Last Filed: 04/04/24 17:32> Patient Disposition: Still a Patient <Magnolia Monae PA-C - Last Filed: 04/04/24 17:32> Condition: Stable <Magnolia Monae PA-C - Last Filed: 04/04/24 17:32> Patient Language: Mauritian <Magnolia Monae PA-C - Last Filed: 04/04/24 17:32> Prescriptions: No Action prednisone 20 mg tablet 40 mg PO DAILY 5 Days Qty: 10 0RF amoxicillin-pot clavulanate 875-125 mg tablet 1 tablet PO Q12H 10 Days Qty: 20 0RF atorvastatin 40 mg Tablet 40 mg PO HS Qty: 30 3RF carvedilol [Coreg] 12.5 mg Tablet 12.5 mg PO Q12HR Qty: 60 3RF lisinopril 20 mg Tablet 20 mg PO DAILY Qty: 30 3RF spironolactone 25 mg Tablet 25 mg PO QAM Qty: 30 3RF furosemide 40 mg tablet 40 mg PO BID Qty: 60 3RF clopidogrel 75 mg tablet 75 mg PO DAILY Qty: 30 3RF pantoprazole 40 mg Tablet,Delayed Release (Dr/Ec) 40 mg PO QAM Qty: 30 3RF acetaminophen [Tylenol] 325 mg Tablet 650 mg Q6-8H PRN (Reason: pain) ferrous sulfate 325 mg (65 mg iron) Capsule, Extended Release 65 mg PO DAILY <Magnolia Monae PA-C - Last Filed: 04/04/24 17:32> Follow-up/Referrals: Reece Umanzor MD [Primary Care Provider] - <Magnolia Monae PA-C - Last Filed: 04/04/24 17:32>
--- NOTE | 2024-04-04 17:28 | ECG_ITS ---
Test Date: 2024-04-04 18:22:57 Measurements Intervals [place] Rate: 82 P: 29 [place]: 210 QRS: 24 QRSD: 88 T: 168 QT: 385 QTc: 451 Interpretive Statements SINUS RHYTHM WITH FIRST DEGREE AV BLOCK LOW QRS VOLTAGE IN PRECORDIAL LEADS [QRS DEFLECTION < 1.0 mV IN CHEST LEADS] ST DEVIATION AND MODERATE T-WAVE ABNORMALITY, CONSIDER ANTEROLATERAL ISCHEMIA [-0.1+ mV T-WAVE IN V3-V6] No previous ECG available for comparison Electronically Signed On 04-08-2024 14:38:15 QUALITY ASSURANCE MONITOR FINAL by Shant Hadley M.D.
--- NOTE | 2024-04-04 18:22 | ED.GENADULT ---
HPI - General Adult General Chief complaint: Upper Respiratory Infection Stated complaint: UPPER RESP X1 MONTH. SOB WITH EXERTION Time Seen by Provider: 04/04/24 18:22 Related Data Home Medications ?Medication ?Instructions ?Recorded ?Confirmed ?Last Taken ?Type acetaminophen 325 mg tablet 650 mg Q6-8H PRN pain 04/28/20 04/28/20 Unknown History (Tylenol) ferrous sulfate 325 mg (65 mg 65 mg PO DAILY 05/19/20 05/19/20 Unknown History iron) capsule,extended release Allergies Allergy/AdvReac Type Severity Reaction Status Date / Time No Known Allergies Allergy Verified 04/04/24 17:09 [facility] Past Medical History Medical History (Updated 03/20/24 @ 00:01 by Radha Sloan) Ischemic cardiomyopathy Hyperlipidemia Essential hypertension GERD (gastroesophageal reflux disease) Dilatation of esophagus Obstructive sleep apnea on CPAP CHF (congestive heart failure) Coronary artery disease Surgical History Surgical History History of repair of anterior cruciate ligament of right knee History of repair of left rotator cuff x2 History of repair of right rotator cuff History of bilateral carpal tunnel release Hx of CABG 2 vessel July 2014 at [place] Family History Family History Mother Diabetes mellitus Father Prostate carcinoma Sibling Intellectual disability younger sister Social History Social History Smoking packs per day: 1 Smoking cigarettes per day: 20.0 Years smoked: 10 Smoking pack-years: 10.00 Smoking status: Former smoker Tobacco type: cigarettes Alcohol intake: former Drinks per week: 12 Substance use: never Substance use type: does not use Gender identity (if verbalized by the patient): Male Spiritual care concerns: No Course Vital Signs Vital signs: Vital Signs Pulse Rate 80 04/04/24 17:10 Respiratory Rate 16 04/04/24 17:10 Pulse Oximetry 99 04/04/24 17:10 Oxygen Delivery Room Air 04/04/24 17:10 Temperature 98.0 F 04/04/24 17:26 Pulse Rate 80 04/04/24 18:10 Respiratory Rate 16 04/04/24 18:10 Blood Pressure 75/42 L 04/04/24 18:10 Pulse Oximetry 99 04/04/24 18:10 Oxygen Delivery Room Air 04/04/24 17:26 Medical Decision Making Vital Signs Vital Signs: Vital Signs Pulse Rate 80 04/04/24 17:10 Respiratory Rate 16 04/04/24 17:10 Pulse Oximetry 99 04/04/24 17:10 Oxygen Delivery Room Air 04/04/24 17:10 Temperature 98.0 F 04/04/24 17:26 Pulse Rate 80 04/04/24 18:10 Respiratory Rate 16 04/04/24 18:10 Blood Pressure 75/42 L 04/04/24 18:10 Pulse Oximetry 99 04/04/24 18:10 Oxygen Delivery Room Air 04/04/24 17:26 Discharge Plan Discharge Patient Language: French Prescriptions: No Action prednisone 20 mg tablet 40 mg PO DAILY 5 Days Qty: 10 0RF amoxicillin-pot clavulanate 875-125 mg tablet 1 tablet PO Q12H 10 Days Qty: 20 0RF atorvastatin 40 mg Tablet 40 mg PO HS Qty: 30 3RF carvedilol [Coreg] 12.5 mg Tablet 12.5 mg PO Q12HR Qty: 60 3RF lisinopril 20 mg Tablet 20 mg PO DAILY Qty: 30 3RF spironolactone 25 mg Tablet 25 mg PO QAM Qty: 30 3RF furosemide 40 mg tablet 40 mg PO BID Qty: 60 3RF clopidogrel 75 mg tablet 75 mg PO DAILY Qty: 30 3RF pantoprazole 40 mg Tablet,Delayed Release (Dr/Ec) 40 mg PO QAM Qty: 30 3RF acetaminophen [Tylenol] 325 mg Tablet 650 mg Q6-8H PRN (Reason: pain) ferrous sulfate 325 mg (65 mg iron) Capsule, Extended Release 65 mg PO DAILY Follow-up/Referrals: Reece Umanzor MD [Primary Care Provider] -
[2024-04-04 18:25] LABS: Basophils Absolute Auto 0.1 K/mm3 (0.0-0.1); Basophils Percent Auto 0.4 % (0.2-1.2); Eosinophils Absolute Auto 0.3 K/mm3 (0-0.3); Eosinophils Percent Auto 1.9 % (0-4.4); Hemoglobin 10.4 g/dL (14.0-18.0); Immature Granulocyte Absolute 0.17 K/mm3 (0.00-0.031); Immature Granulocyte Percent A 1.1 % (0-0.5); Lymphocytes Absolute Auto 1.14 K/mm3 (0.9-3.2); Lymphocytes Percent Auto 7.6 % (18.3-44.2); Mean Corpuscular HGB Conc 33.5 g/dl (32-36); Mean Corpuscular Hemoglobin 32.6 pg (26-34); Mean Corpuscular Volume 97.2 fl (80-100); Mean Platelet Volume 8.2 fl (7.4-10.4); Monocytes Absolute Auto 1.2 K/mm3 (0.1-0.6); Monocytes Percent Auto 7.9 % (2.6-8.5); Neutrophils Absolute Auto 12.1 K/mm3 (1.3-6.7); Neutrophils Percent Auto 81.1 % (45.5-73.1); Platelet Count Result 419 k/mm3 (150-375); Red Blood Count 3.19 M/mm3 (4.6-6.20); Red Cell Distribution Width 12.5 % (11.5-14.5); White Blood Count 14.9 K/mm3 (4.5-10.0)
[2024-04-04 18:35] LABS: Alanine Aminotransferase 66 U/L (6-50); Albumin Level 3.5 g/dL (3.5-5.1); Alkaline Phosphatase 283 U/L (38-126); Anion Gap 4 mmol/L (4-12); Aspartate Amino Transferase 45 U/L (17-59); Bilirubin,Total 0.8 mg/dL (0.2-1.3); Blood Urea Nitrogen 55 mg/dL (9-20); Carbon Dioxide 21 mmol/L (22-30); Chloride 106 mmol/L (98-107); Estimated CRCL calculation 45 ml/min; Estimated Glomerular Filt Rate 34; Glucose 123 mg/dL (65-110); Magnesium 2.3 mg/dL (1.6-2.3); Potassium 5.7 mmol/L (3.4-5.0); Sodium 131 mmol/L (137-145)
[2024-04-04 18:46] LABS: NT Pro B Type Natriuretic Pept 1130 pg/mL (19.9-100); Troponin I < 0.012 ng/mL (0.000-0.034)
[2024-04-04 19:01] LABS: Influenza A QL RT-PCR Negative (Negative); Influenza B QL RT-PCR Negative (Negative); RSV RNA, RT-PCR Negative (Negative); SARS-CoV-2 RNA PCR Negative (Negative)
[2024-04-04] MEDS: IPRATROPIUM 0.5 MG/ALBUTEROL SULFATE 2.5 MG AMPUL.NEB 3 ML INHALATION (19:07)
[2024-04-04] MEDS: SODIUM CHLORIDE 0.9% IV 1,000 ML 999 ML IV CONT (20:07)
--- NOTE | 2024-04-04 20:11 | PC.NURSE ---
Second set of blood cultures were drawn by this RN in pt right hand.
[2024-04-04 20:24] LABS: Lactic Acid Reflex 1.2 mmol/L (0.7-2.0)
[2024-04-04] MEDS: AZITHROMYCIN 500 MG/NS 250 ML 500 MG/250 ML BAG 250 MG IVPB (20:36)
[2024-04-04] MEDS: LACTATED RINGERS 1,000 ML 100 ML IV CONT (21:54)
--- NOTE | 2024-04-04 23:22 | ADMGEN ---
This patient, Jagdeep Nieto, was admitted to Medical Room 347-01. Patient/family oriented to hospital policies and general routines including ID bracelet, bed and alarms, visiting hours, pain management, procedures, bathroom and other care routines, personal items, smoking policy, room service/diet, and visiting hours. Information on how to activate the Rapid Response Team has been discussed. Patient/Family are encouraged to report perceived risks to care and to ask questions if they do not understand what they are told or what they should do.
[2024-04-05] VITALS (11 sets, daily range): BP systolic 105–117; BP diastolic 55–66; PULSE 70–91; RESP 16–18; TEMP 36.5–36.7; O2SAT 97–100
--- NOTE | 2024-04-05 | ECHO_ITS ---
Patient Info Name: Jagdeep Nieto Age: 63 years : 1960 Gender: Male Ht: 73 in Wt: 245 lbs BSA: 2.42 m2 HR: 71 bpm BP: 97 / 56 mmHg Heart Rhythm: Sinus Rhythm Technical Quality: Fair Exam Date: 04/05/2024 4:06 PM Exam Location: Echo Lab Patient Status: Inpatient Admit Date: 04/05/2024 Staff Ordering Physician: Beka Trevizo APRN General Assistant: Mariajose Mtz RDCS Attending Provider: Del Angulo MD Referring Physician: Santhosh BILLINGS; Exam Type: CA echo dop color flow w con Study Info Indications - chf Complete two-dimensional, color flow and Doppler transthoracic echocardiogram is performed with contrast to opacify the left ventricle and to improve the deliniation of the left ventricle endocardial borders. Contrast/Agitated Saline Contrast/Ag. Saline: Definity Amount: 3.00 ml Administered By: Mariajose Mtz RDCS Existing IV Access: Yes IV Access Condition: patent with no signs of infiltration Summary 1. Normal inferior vena cava with >50% collapse upon inspiration consistent with normal right atrial pressure, 3 mmHg. 2. There is mild tricuspid valve regurgitation. 3. No pulmonary hypertension, estimated pulmonary arterial systolic pressure is 32 mmHg. 4. There is mild mitral valve regurgitation. 5. Left ventricular chamber dimension is normal. 6. Left ventricular systolic function is normal, estimated at 55-60%. 7. There is severe asymmetrical wall thickness. 8. Left ventricular wall motion is normal. 9. The left ventricular diastolic function is normal. 10. Right ventricular chamber dimension is normal. 11. Right ventricular systolic function is normal. Left Ventricle Left ventricular chamber dimension is normal. Left ventricular systolic function is normal, estimated at 55-60%. There is severe asymmetrical wall thickness. Left ventricular wall motion is normal. The left ventricular diastolic function is normal. Right Ventricle Right ventricular chamber dimension is normal. Right ventricular systolic function is normal. Left Atria Left atrial chamber dimension is normal. Right Atria Right atrial chamber dimension is normal. Aortic Valve The aortic valve is trileaflet. There is no aortic valve sclerosis. There is no aortic valve stenosis. There is mild aortic valve regurgitation. Pulmonic Valve The pulmonic valve is normal. There is no pulmonic regurgitation. Mitral Valve The mitral valve has normal leaflets. There is no mitral valve stenosis. There is mild mitral valve regurgitation. Tricuspid Valve The tricuspid valve leaflets are normal. There is no significant tricuspid valve stenosis. There is mild tricuspid valve regurgitation. No pulmonary hypertension, estimated pulmonary arterial systolic pressure is 32 mmHg. Pericardium/Pleural There is no pericardial effusion. Inferior Vena Cava Normal inferior vena cava with >50% collapse upon inspiration consistent with normal right atrial pressure, 3 mmHg. Aorta The aortic root size at the sinus of Valsalva is normal. The prox ascending aorta size is normal. Left Ventricular Outflow Tract Name Value Normal LVOT 2D LVOT Diameter 2.22 cm LVOT Doppler LVOT Peak Gradient 4 mmHg LVOT Mean Gradient 2 mmHg LVOT VTI 19.69 cm LVOT VTI/AV VTI Ratio 0.88 LVOT Stroke Volume 76.11 ml LVOT CO 5.65 l/min LVOT CI 2.33 L/min/m2 Pulmonic Valve Name Value Normal RVOT Doppler RVOT Peak Gradient 2 mmHg PV Doppler PV Peak Gradient 7 mmHg Mitral Valve Name Value Normal MV Doppler MV Decel Gilchrist 527.06 cm/s2 MV PHT 0 s MV Area (PHT) 4.75 cm2 4.00-5.00 MV Diastolic Function MV E Peak Velocity 84.12 cm/s MV A Peak Velocity 68.65 cm/s MV E/A 1.23 MV Decel Time 0 s MV Annular TDI MV E/e' (Septal) 12.75 <=8.00 MV E/e' (Lateral) 8.16 <=8.00 MV E/e' (Average) 10.46 Tricuspid Valve Name Value Normal TV Regurgitation Doppler TR Peak Velocity 269.70 cm/s TR Peak Gradient 29 mmHg Estimated PAP/RSVP RA Pressure 3 mmHg <=5 PA Systolic Pressure 32 mmHg <36 RV Systolic Pressure 32 mmHg <36 Aorta Name Value Normal Ascending Aorta Ao Root Diameter (MM) 3.53 cm Ao Root Diam Index (MM) 1.46 cm/m2 Aortic Valve Name Value Normal AV Doppler AV Peak Velocity 109.75 cm/s AV Peak Gradient 5 mmHg AV Mean Gradient 2 mmHg AV VTI 22.31 cm AV Area (Cont Eq VTI) 3.41 cm2 >=3.00 AV Area (Cont Eq Kvng) 3.31 cm2 AV Regurgitation 2D LVOT Area 3.87 cm2 Ventricles Name Value Normal LV Dimensions 2D/MM IVS Diastolic Thickness (2D) 0.70 cm 0.60-1.00 LVID Diastole (2D) 5.71 cm 4.20-5.80 LVIW Diastolic Thickness (2D) 0.82 cm 0.60-1.00 LVID Systole (2D) 3.65 cm 2.50-4.00 LVOT Diameter 2.22 cm LV Mass (2D Cubed) 160.47 g 88.00-224.00 LV Mass Index (2D Cubed) 0.01 g/cm2 0.00-0.01 Relative Wall Thickness (2D) 0.29 LV Fractional Shortening/Ejection Fraction 2D/MM LV Fractional Shortening (2D) 36 % 25-43 LV EF (2D Teicholz) 65 % 52-72 LV Diastolic Volume (4C MOD) 78.54 ml LV EF (4C MOD) 42 % LV Diastolic Volume (2C MOD) 77.73 ml LV EF (2C MOD) 47 % LV Diastolic Volume (BP MOD) 77.94 ml 62.00-150.00 LV Diastolic Volume Index (BP MOD) 0.03 l/m2 0.03-0.07 LV Systolic Volume (BP MOD) 43.82 ml 21.00-61.00 LV Systolic Volume Index (BP MOD) 0.02 l/m2 0.01-0.03 LV EF (BP MOD) 44 % 52-72 LV Diastolic Length (4C) 8.66 cm LV Systolic Length (4C) 8.40 cm LV Stroke Volume (4C MOD) 33.08 ml Atria Name Value Normal LA Dimensions LA Dimension (MM) 5.07 cm 3.00-4.10 LA Volume (4C A-L) 72.77 ml LA Volume (BP A-L) 81.74 ml RA Dimensions RA Area (4C) 13.72 cm2 <=18.00 Report Signatures
[2024-04-05 03:55] LABS: Basophils Percent Auto 0.4 % (0.2-1.2); Eosinophils Absolute Auto 0.4 K/mm3 (0-0.3); Eosinophils Percent Auto 3.5 % (0-4.4); Hematocrit 26.2 % (42.0-52.0); Hemoglobin 8.8 g/dL (14.0-18.0); Immature Granulocyte Absolute 0.11 K/mm3 (0.00-0.031); Lymphocytes Absolute Auto 1.55 K/mm3 (0.9-3.2); Mean Corpuscular HGB Conc 33.6 g/dl (32-36); Mean Corpuscular Hemoglobin 32.6 pg (26-34); Monocytes Absolute Auto 1.2 K/mm3 (0.1-0.6); Monocytes Percent Auto 10.4 % (2.6-8.5); Neutrophils Absolute Auto 7.9 K/mm3 (1.3-6.7); Neutrophils Percent Auto 70.7 % (45.5-73.1); Platelet Count Result 330 k/mm3 (150-375); Red Cell Distribution Width 12.8 % (11.5-14.5); White Blood Count 11.1 K/mm3 (4.5-10.0)
[2024-04-05 04:04] LABS: Iron 22 ug/dL (49-181)
[2024-04-05 04:05] LABS: Hemoglobin A1C 6.5 % (<5.7)
[2024-04-05 04:06] LABS: Alanine Aminotransferase 52 U/L (6-50); Alkaline Phosphatase 228 U/L (38-126); Anion Gap 2 mmol/L (4-12); Aspartate Amino Transferase 32 U/L (17-59); Bilirubin,Total 0.5 mg/dL (0.2-1.3); Blood Urea Nitrogen 47 mg/dL (9-20); Calcium 8.4 mg/dL (8.4-10.2); Carbon Dioxide 21 mmol/L (22-30); Chloride 109 mmol/L (98-107); Estimated CRCL calculation 61 ml/min; Estimated Glomerular Filt Rate 48; Glucose 108 mg/dL (65-110); Magnesium 2.1 mg/dL (1.6-2.3); Potassium 4.9 mmol/L (3.4-5.0); Sodium 132 mmol/L (137-145)
[2024-04-05 04:19] LABS: Percent Iron Saturation 12 % (20-50); TOTAL IRON BINDING CAPACITY 181 ug/dL (265-497)
[2024-04-05 07:26] LABS: Folic Acid 3.9 ng/mL (2.76->20)
[2024-04-05] MEDS: LACTATED RINGERS 1,000 ML 100 ML IV CONT (09:30)
[2024-04-05] MEDS: carvediloL 12.5 MG TABLET PO ×2 (09:31→20:29)
[2024-04-05] MEDS: ROSUVASTATIN 20 MG TABLET 40 MG PO (09:31)
[2024-04-05] MEDS: CLOPIDOGREL BISULFATE 75 MG TABLET PO (09:31)
[2024-04-05] MEDS: ENOXAPARIN 40 MG/0.4 ML SYRINGE SUB-Q (09:31)
[2024-04-05] MEDS: PANTOPRAZOLE 40 MG TABLET PO (09:31)
--- NOTE | 2024-04-05 09:32 | P.HP_ITS ---
H&P: HPI History of Present Illness Date/Time: 04/05/24 09:32 Chief Complaint: uri Narrative: 63 y.o male with pmh of chf, ischemic cardiomyopathy, HLD, HTN, GERD, CATHERINE on CPAP, CAD, Hx of CABG 2 vessel July 2014 at [place] admitted form ED with exertional dyspnea, cough, and fatigue for about 1 month. He finished augmentin for a sinus infection recently. reports worsening of his leg swelling despite being complaint with his lasix. Reports productive cough, clear sputum, chest tightness. Has received 1L of fluid. He has received IV antibiotics. BNP 1100, doesnot appear to have CHF exacerbation. Chest xray showed: Right basilar atelectasis versus pneumonia with pleural effusion. he is following with cardiology here at [place], unable to recall when his echo was. it had been ordered already. Review of Systems Review of Systems: All systems reviewed & are unremarkable except as noted in HPI and below PMFSH Past Medical History Medical History Ischemic cardiomyopathy Hyperlipidemia Essential hypertension GERD (gastroesophageal reflux disease) Dilatation of esophagus Obstructive sleep apnea on CPAP CHF (congestive heart failure) Coronary artery disease Surgical History Surgical History History of repair of anterior cruciate ligament of right knee History of repair of left rotator cuff x2 History of repair of right rotator cuff History of bilateral carpal tunnel release Hx of CABG 2 vessel July 2014 at [place] Family History Family History Mother Diabetes mellitus Father Prostate carcinoma Sibling Intellectual disability younger sister Social History Social History Smoking packs per day: 1 Smoking cigarettes per day: 20.0 Years smoked: 20 Smoking pack-years: 20.00 Smoking status: Former smoker Tobacco type: cigarettes Alcohol intake: former Drinks per week: 12 Substance use: never Substance use type: does not use Do You Feel Safe in your Home?: Yes Lack of Transportation: No Lack of Food: Never True Current Housing: I Have Housing Concerned About Future Housing: No Difficulty Paying Gas/Electric Bills: No Difficulty Paying for Meds: No Currently Unemployed: No Education: High School Diploma/GED Difficulty w/ Childcare or Family Care: No Gender identity (if verbalized by the patient): Male Spiritual care concerns: No Meds Home Medications and Allergies Home Medications ?Medication ?Instructions ?Recorded ?Confirmed ?Type carvedilol 12.5 mg tablet (Coreg) 12.5 mg PO Q12HR #60 tabs 12/27/19 04/05/24 Rx clopidogrel 75 mg tablet 75 mg PO DAILY #30 tabs 12/27/19 04/05/24 Rx furosemide 40 mg tablet 40 mg PO BID #60 tabs 12/27/19 04/05/24 Rx lisinopril 20 mg tablet 20 mg PO DAILY #30 tabs 12/27/19 04/05/24 Rx pantoprazole 40 mg tablet,delayed 40 mg PO QAM #30 tabs 12/27/19 04/05/24 Rx release spironolactone 25 mg tablet 25 mg PO QAM #30 tabs 12/27/19 04/05/24 Rx acetaminophen 325 mg tablet 650 mg PO Q6-8H pain 04/28/20 04/05/24 History (Tylenol) rosuvastatin 40 mg tablet 40 mg PO DAILY 04/05/24 04/05/24 History Allergies Allergy/AdvReac Type Severity Reaction Status Date / Time No Known Allergies Allergy Verified 04/04/24 17:09 Vital Signs Vital Signs - 24 hr 04/04/24 17:10 04/04/24 17:26 04/04/24 18:10 Temperature 98.0 F Pulse Rate 80 82 80 Respiratory Rate 16 18 16 Blood Pressure 91/62 L 75/42 L Pulse Oximetry 99 100 99 Oxygen Delivery Room Air Room Air 04/04/24 18:31 04/04/24 18:40 04/04/24 18:46 Temperature Pulse Rate 78 79 75 Respiratory Rate 25 H 21 H 21 H Blood Pressure 87/53 L 89/65 L 85/56 L Pulse Oximetry 99 99 100 Oxygen Delivery 04/04/24 19:01 04/04/24 19:11 04/04/24 19:16 Temperature Pulse Rate 77 77 71 Respiratory Rate 24 H 20 14 Blood Pressure 90/58 L 83/52 L Pulse Oximetry 100 100 Oxygen Delivery 04/04/24 19:22 04/04/24 20:46 04/04/24 21:01 Temperature Pulse Rate 70 71 73 Respiratory Rate 20 21 H 19 Blood Pressure 101/56 L 93/57 L Pulse Oximetry 99 100 Oxygen Delivery 04/04/24 21:06 04/04/24 21:15 04/04/24 21:20 Temperature Pulse Rate 71 73 72 Respiratory Rate 16 22 H 26 H Blood Pressure 75/65 L 88/69 L 91/51 L Pulse Oximetry 100 99 100 Oxygen Delivery 04/04/24 21:31 04/04/24 21:46 04/04/24 22:01 Temperature Pulse Rate 72 72 70 Respiratory Rate 20 21 H 22 H Blood Pressure 91/53 L 81/57 L 94/54 L Pulse Oximetry 100 99 98 Oxygen Delivery 04/04/24 22:31 04/05/24 00:00 04/05/24 04:00 Temperature Pulse Rate 71 75 71 Respiratory Rate 25 H Blood Pressure 97/56 L Pulse Oximetry 98 Oxygen Delivery 04/05/24 06:00 Temperature 98.1 F Pulse Rate 91 Respiratory Rate 16 Blood Pressure 117/58 L Pulse Oximetry 97 Oxygen Delivery Exam Const: General: comfortable Resp: Effort & Inspection: normal respiratory effort Auscultation: clear to auscultation bilaterally Cardio: Rate: regular rate Rhythm: regular rhythm GI: GI Palp: Yes Soft to palpation Auscultation: normal bowel sounds Skin: General skin exam: normal color Neuro: Speech: normal speech Sensory Exam: normal sensation Extrem: General: normal to inspection Psych: Mental Status: mental status grossly normal Affect: normal affect H&P: Results Labs Labs: Short CBC 04/04/24 04/05/24 Range/Units 18:20 03:45 WBC 14.9 H 11.1 H (4.5-10.0) K/mm3 Hgb 10.4 L 8.8 L (14.0-18.0) g/dL Hct 31.0 L 26.2 L (42.0-52.0) % Plt Count 419 H 330 (150-375) k/mm3 BMP 04/04/24 04/05/24 18:20 03:45 Sodium 131 L 132 L Potassium 5.7 H 4.9 Chloride 106 109 H Carbon Dioxide 21 L 21 L BUN 55 H D 47 H Creatinine 2.00 H 1.50 H Glucose 123 H 108 Calcium 9.0 8.4 Cardiac Enzymes 04/04/24 Range/Units 18:20 Troponin I < 0.012 (0.000-0.034) ng/mL Liver Function 04/04/24 04/05/24 Range/Units 18:20 03:45 Total Bilirubin 0.8 0.5 (0.2-1.3) mg/dL AST 45 32 (17-59) U/L ALT 66 H 52 H (6-50) U/L Alkaline Phosphatase 283 H 228 H (38-126) U/L Albumin 3.5 3.0 L (3.5-5.1) g/dL Assessment and Plan Assessment and plan (1) Hypertension: Qualifiers: Hypertension type: essential hypertension Qualified Code(s): I10 - Essential (primary) hypertension Code(s): I10 - Essential (primary) hypertension Status: Acute Assessment and Plan: lasix, spironolactone, coreg (2) Acute on chronic systolic (congestive) heart failure: Code(s): I50.23 - Acute on chronic systolic (congestive) heart failure Status: Acute Assessment and Plan: lasix (holding), coreg, lisinopril, spironolactone (holding) monitor I/O no leg swelling on exam echo ordered prior (3) KAY (acute kidney injury): Code(s): N17.9 - Acute kidney failure, unspecified Status: Acute Assessment and Plan: avoid nephrotoxic drugs daily labs (4) Hyperkalemia: Code(s): E87.5 - Hyperkalemia Status: Acute Assessment and Plan: holding lisinopril, spironolactone daily labs IV gentle hydration (5) Pneumonia: Code(s): J18.9 - Pneumonia, unspecified organism Status: Acute Assessment and Plan: chest xray: Right basilar atelectasis versus pneumonia with pleural effusion. was started on azithromycin, ceftriaxone (6) Coronary artery disease: Code(s): I25.10 - Atherosclerotic heart disease of [place] coronary artery without angina pectoris Status: Acute Assessment and Plan: Hx of CABG 2 vessel July 2014 at [place] plavix, statin continue Quality VTE Prophylaxis VTE prophylaxis: mechanical ordered Hospitalist [facility] Advance Care Plan I have confirmed that the patient's Advanced Care Plan is present, code status is documented, or surrogate decision maker is listed in patient medical record.: Yes Medication Reconciliation I have utilized all available resources to obtain, update and review the patients current medications (includes all prescriptions, OTC, herbals, cannabis, and nutritional supplements).: Yes
--- NOTE | 2024-04-05 12:05 | PCPTNOTE ---
Attempted PT evaluation, pt refused stating I just got settled. Pt educated and encouraged to participate, but continued to refuse. Will follow.
[2024-04-05] MEDS: LORATADINE 10 MG TABLET PO (15:29)
[2024-04-05] MEDS: PERFLUTREN LIPID MICROSPHERES 1.5 ML VIAL DILUTED TO 10 ML TOTAL VOLUME IV PUSH (16:30)
--- NOTE | 2024-04-05 17:59 | IVDEFINITY ---
Prior to administration of IV Definity the patient was educated on the risks and benefits of the imaging enhancing agent including potential adverse side effects. The patient verbalized understanding. Allergies were verified. No exclusion criteria were identified and at least one of the following inclusion criteria were met: 1) physician request, 2) patient technically difficult to image (per the [place] [employer] guidelines of two or more segments not discernable within the apical view), or 3) questionable left ventricular function. ?
[2024-04-05] MEDS: guaiFENesin 12 HR 600 MG TABCR PO (20:29)
[2024-04-05] MEDS: AZITHROMYCIN 500 MG/NS 250 ML 500 MG/250 ML BAG 250 MG IVPB (22:45)
[2024-04-06] VITALS: PULSE 76
[2024-04-06 04:06] VITALS: BP 119/70; PULSE 79; RESP 20; TEMP 36.6; O2SAT 99
--- NOTE | 2024-04-06 04:37 | PCRCNOTE ---
patient stated that he no longer uses home cpap machine after losing 60 lbs.
[2024-04-06 06:32] LABS: Basophils Percent Auto 0.4 % (0.2-1.2); Eosinophils Absolute Auto 0.4 K/mm3 (0-0.3); Eosinophils Percent Auto 3.4 % (0-4.4); Hematocrit 26.2 % (42.0-52.0); Hemoglobin 8.4 g/dL (14.0-18.0); Immature Granulocyte Absolute 0.08 K/mm3 (0.00-0.031); Immature Granulocyte Percent A 0.8 % (0-0.5); Lymphocytes Absolute Auto 1.32 K/mm3 (0.9-3.2); Lymphocytes Percent Auto 12.6 % (18.3-44.2); Mean Corpuscular HGB Conc 32.1 g/dl (32-36); Mean Corpuscular Hemoglobin 31.8 pg (26-34); Mean Corpuscular Volume 99.2 fl (80-100); Mean Platelet Volume 8.2 fl (7.4-10.4); Monocytes Percent Auto 9.5 % (2.6-8.5); Neutrophils Absolute Auto 7.7 K/mm3 (1.3-6.7); Neutrophils Percent Auto 73.3 % (45.5-73.1); Platelet Count Result 348 k/mm3 (150-375); Red Blood Count 2.64 M/mm3 (4.6-6.20); Red Cell Distribution Width 12.5 % (11.5-14.5); White Blood Count 10.5 K/mm3 (4.5-10.0)
[2024-04-06 07:07] LABS: Alanine Aminotransferase 46 U/L (6-50); Alkaline Phosphatase 227 U/L (38-126); Anion Gap 0 mmol/L (4-12); Aspartate Amino Transferase 26 U/L (17-59); Bilirubin,Total 0.6 mg/dL (0.2-1.3); Blood Urea Nitrogen 26 mg/dL (9-20); Calcium 8.6 mg/dL (8.4-10.2); Carbon Dioxide 22 mmol/L (22-30); Chloride 109 mmol/L (98-107); Estimated CRCL calculation 90 ml/min; Estimated Glomerular Filt Rate > 60; Glucose 107 mg/dL (65-110); Potassium 4.7 mmol/L (3.4-5.0); Sodium 131 mmol/L (137-145)
[2024-04-06 08:00] VITALS: PULSE 87
[2024-04-06 08:30] VITALS: PULSE 76
[2024-04-06] MEDS: LORATADINE 10 MG TABLET PO (08:30)
[2024-04-06] MEDS: ROSUVASTATIN 20 MG TABLET 40 MG PO (08:30)
[2024-04-06] MEDS: guaiFENesin 12 HR 600 MG TABCR PO (08:30)
[2024-04-06] MEDS: carvediloL 12.5 MG TABLET PO (08:30)
[2024-04-06] MEDS: CLOPIDOGREL BISULFATE 75 MG TABLET PO (08:30)
[2024-04-06] MEDS: PANTOPRAZOLE 40 MG TABLET PO (08:30)
[2024-04-06] MEDS: ENOXAPARIN 40 MG/0.4 ML SYRINGE SUB-Q (08:31)
--- NOTE | 2024-04-06 11:03 | PCPTNOTE ---
1053 Patient asleep, Physical therapy will attempt again as time allows.
[2024-04-06 12:00] VITALS: PULSE 75
[2024-04-06 14:00] VITALS: BP 113/65; PULSE 76; RESP 18; TEMP 36.2; O2SAT 95
--- NOTE | 2024-04-06 14:35 | PM.DS ---
DS: Admitting Diagnosis Discharge Date 04/06 Admitting Diagnosis uri DS: Discharge Diagnosis Discharge Diagnosis (1) Hypertension: Qualifiers: Hypertension type: essential hypertension Qualified Code(s): I10 - Essential (primary) hypertension Code(s): I10 - Essential (primary) hypertension Status: Acute (2) Acute on chronic systolic (congestive) heart failure: Code(s): I50.23 - Acute on chronic systolic (congestive) heart failure Status: Acute (3) KAY (acute kidney injury): Code(s): N17.9 - Acute kidney failure, unspecified Status: Acute Assessment and Plan: avoid nephrotoxic drugs daily labs (4) Hyperkalemia: Code(s): E87.5 - Hyperkalemia Status: Acute (5) Pneumonia: Code(s): J18.9 - Pneumonia, unspecified organism Status: Acute (6) Coronary artery disease: Code(s): I25.10 - Atherosclerotic heart disease of [place] coronary artery without angina pectoris Status: Acute DS: Summary Hospital Course Hospital Course: 63 y.o male with pmh of chf, ischemic cardiomyopathy, HLD, HTN, GERD, CATHERINE on CPAP, CAD, Hx of CABG 2 vessel July 2014 at [facility] admitted form ED with exertional dyspnea, cough, and fatigue for about 1 month. He finished augmentin for a sinus infection recently. reports worsening of his leg swelling despite being complaint with his lasix. Reports productive cough, clear sputum, chest tightness. Has received 1L of fluid. He has received IV antibiotics. BNP 1100, doesnot appear to have CHF exacerbation. Chest xray showed: Right basilar atelectasis versus pneumonia with pleural effusion. he is following with cardiology here at [facility], unable to recall when his echo was. Repeated echo-04/05: Left ventricular systolic function is normal, estimated at 55-60%. K was high- 5.7- so lisinopril and spironolactone were held. K went back to normal, 4.7 on 04/06. He can resume those when discharged but need a close montioeing with pcp to recheck k in a week or so. Status at Discharge Functional status at discharge: independent ambulation Overall status at discharge: patient is back to baseline Time Spent with Patient Time attestation: Total time spent providing and/or coordinating discharge services: Time spent: Greater than 30 minutes Exam Const: General: comfortable Resp: Effort & Inspection: normal respiratory effort Auscultation: clear to auscultation bilaterally Cardio: Rate: regular rate Rhythm: regular rhythm GI: Auscultation: normal bowel sounds Skin: General skin exam: normal color Neuro: Speech: normal speech Sensory Exam: normal sensation Extrem: General: normal to inspection Psych: Mental Status: mental status grossly normal Affect: normal affect DS: Data Data Completed and Pending Labs on day of discharge: Labs from last 24 hours 04/06/24 06:16 WBC 10.5 H RBC 2.64 L Hgb 8.4 L Hct 26.2 L MCV 99.2 MCH 31.8 MCHC 32.1 RDW 12.5 Plt Count 348 MPV 8.2 Immature Gran % (Auto) 0.8 H Neut % (Auto) 73.3 H Lymph % (Auto) 12.6 L [place] % (Auto) 9.5 H Eos % (Auto) 3.4 Baso % (Auto) 0.4 Lymph # (Auto) 1.32 [place] # (Auto) 1.0 H Eos # (Auto) 0.4 H Baso # (Auto) 0.0 Abs Immat Gran (auto) 0.08 H Absolute Neuts (auto) 7.7 H Absolute Nucleated RBC 0.000 Nucleated RBC % 0.0 Sodium 131 L Potassium 4.7 Chloride 109 H Carbon Dioxide 22 Anion Gap 0 L BUN 26 H D Creatinine 1.00 Estim Creat Clear Calc 90 Estimated GFR > 60 Glucose 107 Calcium 8.6 Magnesium 2.0 Total Bilirubin 0.6 AST 26 ALT 46 Alkaline Phosphatase 227 H Total Protein 6.0 L Albumin 3.0 L Preliminary micro results at discharge 04/04/24 20:04 Blood Culture - Preliminary Blood 04/04/24 20:09 Blood Culture - Preliminary Blood Discharge Plan Discharge Attending physician on discharge: Del Angulo Discharging Clinician: Mindy Ireland Activity: august shower Diet: as tolerated and heart healthy Discharge Instructions: you were admitted with exertional dyspnea, cough, and fatigue for about 1 month. He finished augmentin for a sinus infection recently. reports worsening of his leg swelling despite being complaint with his lasix. Has received IV fluid. You received IV antibiotics. BNP 1100, doesnot appear to have CHF exacerbation. Chest xray showed: Right basilar atelectasis versus pneumonia with pleural effusion. he is following with cardiology here at [facility], unable to recall when his echo was. we repeated ECHO, your EF is 55-60% Potassium was high- 5.7- so lisinopril and spironolactone were held. K went back to normal, 4.7 on 04/06. He can resume those when discharged but need a close monitoring with pcp to recheck k in a week or so. Patient Instructions: Clopidogrel (By mouth), Heart Failure (GEN) Patient Language: Uzbek Follow-up/Referrals: Reece Umanzor MD [Primary Care Provider] - 2 Weeks Discharge Medications: Continued carvedilol [Coreg] 12.5 mg Tablet 12.5 mg PO Q12HR Qty: 60 3RF lisinopril 20 mg Tablet 20 mg PO DAILY Qty: 30 3RF spironolactone 25 mg Tablet 25 mg PO QAM Qty: 30 3RF furosemide 40 mg tablet 40 mg PO BID Qty: 60 3RF clopidogrel 75 mg tablet 75 mg PO DAILY Qty: 30 3RF pantoprazole 40 mg Tablet,Delayed Release (Dr/Ec) 40 mg PO QAM Qty: 30 3RF acetaminophen [Tylenol] 325 mg Tablet 650 mg PO Q6-8H rosuvastatin 40 mg tablet 40 mg PO DAILY Other Ambulatory Orders: Basic Metabolic Panel (Routine) Timeframe: 1 Week Location: Determined by Patient Ordered By: Mindy Ireland Date of admission: 04/05/24 07:57 Primary Care Provider: Reece Umanzor Admitting Provider: Del Angulo Attending physician on admission: Del Angulo Condition: Stable Quality VTE Prophylaxis VTE prophylaxis: mechanical ordered Hospitalist MIPS Heart Failure (Exclusion) Patient has history of Heart Transplant or Left Ventricular Assistive Device?: No IF YES, STOP HERE Heart Failure (Qualifier) Patient has current or prior documentation of LVEF less than or equal to 40%, or mod/servere depressed LVSF?: No IF NO, STOP HERE
== END 2024-04-06 16:55 | disposition home or self-care (01) | DRG 139 ==
LOC: ANHED 21:23 → ANH3MED 22:42
PROVIDERS: Nurse Practitioner; Physician Assistant; Admitting Provider General Practice; Emergency Provider Emergency Medicine; PCP Family Medicine Adolescent Medicine; Visit Provider General Practice
DX: J18.9 Pneumonia, unspecified organism (principal); I11.0 Hypertensive heart disease with heart failure; I50.23 Acute on chronic systolic (congestive) heart failure; N17.9 Acute kidney failure, unspecified; I25.5 Ischemic cardiomyopathy; E87.5 Hyperkalemia; E78.5 Hyperlipidemia, unspecified; K21.9 Gastro-esophageal reflux disease without esophagitis; G47.33 Obstructive sleep apnea (adult) (pediatric); I25.10 Atherosclerotic heart disease of native coronary artery without angina pectoris; Z20.822 Contact with and (suspected) exposure to COVID-19; Z95.1 Presence of aortocoronary bypass graft; Z87.891 Personal history of nicotine dependence; Z79.02 Long term (current) use of antithrombotics/antiplatelets
CPT/HCPCS: 36415; 71045; 73562; 80053; 82607; 82728; 82746; 83036; 83540; 83550; 83605; 83735; 83880; 84484; 85025; 87040; 87637; 93005; 94640; 96365; 96367; 96375; 97165; 99285; A9270; C8929; G0378; G0379; J0456; J0696; J1650; J7030; J7120; Q9957

== ENCOUNTER 2024-04-30 13:46 | Outpatient (CLI) | payer OTHER, SELFPAY ==
--- OUTSIDE RECORDS SUMMARY | 2024-04-30 14:27 | XMS_ITS | Encounter Summary ---
Author Organization [facility] Healthcare Address [address] [place] [address] Care Team Providers Care Automotive Service Professional Name Role Phone Reece Umanzor MD Primary Care Prov ider Reece Umanzor MD Unavailable + Reason for Visit * Reason Comments Cardiomyopathy Coronary Artery Disease Congestive Heart Failure Hyperlipidemia 6 mo f/u Encounter Details Date Type Department Care Team (Late st Contact Info) Description 04/30/2024 1:00 PM SERVICE STATION OPERATOR Office Visit [facility] Medical Group Cardiology [address] [place] [address] Epi Ratliff MD [facility] [address] Coronary artery disease of [place] artery of [place] heart with stable angina pectoris (HCC) (Primary Dx); Chronic systolic congestive heart failure (CMS/HCC) (HCC); Hyperlipidemia LDL goal <70; CATHERINE (obstructive sleep apnea) Social History Tobacco Use Types Packs/Day Years Used Date Smoking Tobacco: Former Alcohol Use Standard Drinks/Week Comments Yes 14 (1 standard drink = 0.6 oz pu re alcohol) Personal Safety Answer Date Recorded Getting School Help Needed Not on file 05/26 Sex and Gender Information Value Date Recorded Sex Assigned at Not on file Legal Sex Male 9:01 PM SERVICE STATION OPERATOR Gender Identity Not on file Sexual Orientation Not on file documented as of this encounter Last Filed Vital Signs Vital Sign Reading Time Taken Comments Blood Pressure 92/62 04/30/2024 1:04 PM SERVICE STATION OPERATOR Pulse 75 04/30/2024 1:04 PM SERVICE STATION OPERATOR Temperature - - Respiratory Rate - - Oxygen Saturation 98% 04/30/2024 1:04 PM SERVICE STATION OPERATOR Inhaled Oxygen Concentration - - Weight 110.7 kg (244 lb) 04/30/2024 1:04 PM SERVICE STATION OPERATOR Height 185.4 cm (6' 1 ) 04/30/2024 1:04 PM SERVICE STATION OPERATOR Body Mass Index 32.19 04/30/2024 1:04 PM SERVICE STATION OPERATOR documented in this encounter Progress Notes * Epi Ratliff MD - 04/30/2024 1:00 PM CST [facility] Medical Group Cardiology [address] [place] [address] Date of Visit: 04/30/2024 Patient ID: Guillermo Nieto 1960 Chief Complaint: Guillermo Nieto is a 63 y.o. male with a history of coronary artery disease and congestive heart failure, returning for one month follow up to monitor his CHF. History of Present Illness: Guillermo Nieto is a 63 y.o. male with a past medical history of coronary artery disease with CABG in 2014 WNAG to LAD, SVG to OM with EF 30% at the time, improved to 45% later on. His other medical history is significant for sleep apnea, GERD and arthritis. He later lost medical insurance and did not continue outpatient follow-up. He presented to [facility] on 12/25/2019 with shortness ofbreath and was found to be in congestive heart failure. Echocardiogram showed EF about 25% with wall motion abnormalities. He was taken to the poultry farm laborer by Dr. Sanches the following day on the RCA showed an 80% mid segment stenosis with 80% proximal posterolateral branch stenosis. Mid RCA was treated with a 4 x 18 mm NICK in the PL branch treated with a 2.75 x 12 mm NICK. WANG to the LAD was patent without stenosis. SVG to the OM was large and ectatic but without significant occlusion. He was put onoptimal medical therapy with aspirin, atorvastatin, carvedilol, lisinopril, spironolactone, furosemide 40 mg b.i.d., clopidogrel and pantoprazole. At the time of discharge his Na was 133, K 4.0, creatinine 1.0, magnesium 2.0. He was advised to check a BMP and magnesium following week after discharge. It showed K 4.8, creatinine 1.0, Mag 2.1 Hospital follow-up with GREETING CARD WRITER 01/09/2020: He has been feeling better since discharge. Breathing is better, weight is down, no chest pain. Prior to hospitalization his weight was around 270. Fasting blood sugars have been 90-105. Office visit with GREETING CARD WRITER 02/06/2020 : He continues to feel well. He is monitoring daily weights his home scale ranges 245 to 250. He denies chest pain, KIDD, orthopnea or PND. He does not feel edematous. Follow-up note 03/12/2020: He has intermittent lower extremity swelling which is been a bit more prominent recently. He has also been admittedly eating more during the holiday season. He denies any chest pain, shortness breath, syncope, presyncope, paroxysmal nocturnal dyspnea orthopnea or palpitations. Follow-up note 08/09/2022 He is feeling pretty well. Has some dyspnea with activity sometimes such as walking at a fast pace. No chest pain, syncope, presyncope, paroxysmal nocturnal dyspnea orthopnea, edema palpitations Follow-up note 09/12/2023 He does have some dizziness and fatigue at times. Blood pressures are generally 100 or less systolic. Denies any syncope, paroxysmal nocturnal dyspnea orthopnea, edema, palpitations, chest pain or shortness of breath. Follow-up note 04/30/2024: He returns today after recent hospitalization. He had some renal failure, hyperkalemia and pneumonia. Symptoms did improve. He still is not feeling very well. He was also significantly anemic. He is yet to follow- up with his primary care provider. His appetite is poor. Heis not eating well. He is not hungry. He has blood work that he is supposed to get performed today. He denies any chest pain. No syncope but does have some occasional lightheadedness. No paroxysmal nocturnal dyspnea, orthopnea, edema or palpitations. Records that I personally reviewed on the day of this visit include: (the interpretation is outlined in the HPI above) 01/09/2020 office note from myself. I have also reviewed: allergies, current medications, past family history, past medical history, past social history, past surgical history and problem list Review of Systems Constitutional: Negative for diaphoresis, fever, malaise/fatigue, weight gain and weight loss. HENT: Positive for hearing loss. Eyes: Negative for visual disturbance. Cardiovascular: Positive for dyspnea on exertion. Negative for chest pain, claudication, orthopnea,palpitations, paroxysmal nocturnal dyspnea and syncope. Respiratory: Negative for cough, hemoptysis, shortness of breath, snoring and wheezing. Hematologic/Lymphatic: Does not bruise/bleed easily. Skin: Negative for poor wound healing and rash. Musculoskeletal: Positive for joint pain. Negative for myalgias. Gastrointestinal: Negative for heartburn, nausea and vomiting. Genitourinary: Negative for hematuria. Neurological: Positive for dizziness. Negative for headaches and light-headedness. Psychiatric/Behavioral: Negative for depression. The patient is not nervous/anxious. Vital Signs: BP 92/62 (BP Location: Right arm, Patient Position: Sitting) Pulse 75 Ht 185.4 cm (6' 1 ) Wt 110.7 kg (244 lb) SpO2 98% BMI 32.19 kg/m?? Physical Exam Vitals reviewed. Constitutional: General: He is not in acute distress. Appearance: He is well-developed. HENT: Head: Normocephalic and atraumatic. Eyes: General: No scleral icterus. Conjunctiva/sclera: Conjunctivae normal. Pupils: Pupils are equal, round, and reactive to light. Neck: Vascular: No JVD. Trachea: No tracheal deviation. Cardiovascular: Rate and Rhythm: Normal rate and regular rhythm. Heart sounds: Normal heart sounds. No murmur heard. Pulmonary: Effort: Pulmonary effort is normal. No respiratory distress. Breath sounds: Normal breath sounds. Abdominal: General: Bowel sounds are normal. Palpations: Abdomen is soft. Tenderness: There is no abdominal tenderness. Musculoskeletal: Cervical back: Normal range of motion. Comments: Trivial lower extremity edema Skin: General: Skin is warm and dry. Neurological: Mental Status: He is alert and oriented to person, place, and time. Psychiatric: Mood and Affect: Mood normal. Allergies Allergen Reactions Pollen Extracts Unknown Current Outpatient Medications: aspirin 81 mg enteric coated tablet, Take 1 tablet (81 mg total) by mouth daily, Disp: , Rfl: carvediloL (COREG) 12.5 mg tablet, TAKE 1 TABLET BY MOUTH EVERY 12 HOURS, Disp: 180 tablet, Rfl: 0 clopidogreL (PLAVIX) 75 mg tablet, Take 1 tablet by mouth once daily, Disp: 30 tablet, Rfl: 0 furosemide (LASIX) 40 mg tablet, Take 1 tablet by mouth twice daily, Disp: 180 tablet, Rfl: 0 ibuprofen 200 mg tab/cap, Take by mouth every 6 (six) hours as needed for pain, Disp: , Rfl: lisinopriL (PRINIVIL,ZESTRIL) 20 mg tablet, Take 1 tablet by mouth once daily, Disp: 90 tablet, Rfl: [address] (PROTONIX) 40 mg EC tablet, Take 1 tablet by mouth once daily, Disp: 90 tablet, Rfl: 2 rosuvastatin (CRESTOR) 40 mg tablet, Take 1 tablet (40 mg total) by mouth daily, Disp: 90 tablet, Rfl: 3 spironolactone (ALDACTONE) 25 mg tablet, Take 1 tablet by mouth once daily, Disp: 90 tablet, Rfl: 0 UNABLE TO FIND, Take 2 each by mouth 2 (two) times a day Med Name: Relief Factor OTC supplement containing icariin, resveratrol, turmeric, omega-3, Disp: , Rfl: acetaminophen (TYLENOL) 325 mg tablet, Take 2 tablets (650 mg total) by mouth every 6 (six) hours as needed for pain (Patient not taking: Reported on 04/30/2024), Disp: , Rfl: naproxen-pseudoephedrine 220-120 mg tablet extended release 12 hr, Take by mouth, Disp: , Rfl: Lab Results Component Value Date POTASSIUM 4.5 12/01/2014 BUNSER 23 (H) 12/01/2014 CREATININE 1.3 12/01/2014 CHOL 191 07/09/2014 TRIG 153 (H) 07/09/2014 LDL 123 07/09/2014 HDL 37 (L) 07/09/2014 Echocardiogram 03/05/2020 Definity contrast agent used to visually enhance endocardial wall motion and contractility. Lot Number: [id number]. Mild enlargement of left ventricle cavity. Mild global left ventricular systolic dysfunction. Impaired diastolic relaxation Grade I. Ejection fraction is measured at 43 %. There is moderate enlargement of left atrium. Mild panvalvular regurgitation. Compared with Sept of this year LVEF has improved. ECHO 11/15/2021 Normal left ventricular systolic function. No focal wall motion abnormalities. Normal left ventricular size. Definity contrast agent used to visually enhance endocardial wall motion and contractility. Lot Number: [id number]. Moderate concentric left ventricular hypertrophy. Impaired diastolic relaxation Grade I. Ejection fraction is visually estimated at 55 %. Ejection fraction is measured at 57 %. There is mild enlargement of left atrium. Normal appearance of the mitral valve. Mild mitral annular calcification. Trivial regurgitation of the mitral valve. Aortic valve not well visualized. No evidence of hemodynamically significant aortic stenosis by Doppler. Mild aortic valve regurgitation. Normal appearance of the tricuspid valve. Right ventricular systolic pressure could not be estimated due to inadequate visualization of the tricuspid regurgitation jet. Trivial regurgitation in the tricuspid valve. Normal sinus rhythm. Technically difficult study with limited views. MPI 02/27/23 Global left ventricular function is normal. Left ventricular ejection fraction is 58 %. There is hypokinesis in the mid anteroseptal segment, apical septal segment and apical segment. Myocardial perfusion imaging is abnormal for large, moderately intense infarction with a mild amount of superimposed lateral ischemia. This is predominantly infarction. There is also an apical, mid to apical anterior and apical septal infarction. Negative EKG portion of stress test. Echocardiogram 04/05/2024: EF 55-60% with severe asymmetric wall thickness. Mild MR Assessment: Diagnoses and all orders for this visit: Coronary artery disease of [place] artery of [place] heart with stable angina pectoris (CMS/HCC) (Primary) Asymptomatic, as detailed above Hx of CABG Cardiomyopathy, ischemic improved Chronic systolic (congestive) heart failure (CMS/HCC) compensated Hyperlipidemia LDL goal <70 on statin but above goal CATHERINE (obstructive sleep apnea) generally compliant Plan/Recommendations: He has a history of CAD with CABG, and also had PCI with the hospitalization in December. Bypassesto the LAD and the LCX were patent but he had PCI performed to the RCA and RPL branch. He is anemic and recent hospitalization for pneumonia, acute renal failure, hyperkalemia. He is noteating and drinking very well. He needs follow-up with his primary care provider which is scheduledfor next week. From a cardiac perspective, I am going to stop his spironolactone completely at thispoint. He is hypotensive and dizzy and has the recent history of hyperkalemia and renal insufficiency. Given his poor appetite, he may not be able to tolerate the spironolactone. He verbalized understanding and will stop it for now. Other adjustments needed depending on results of blood work. Encouraged follow-up with PCP. Continue rosuvastatin for hyperlipidemia Change furosemide to p.r.n. basis Continue carvedilol, lisinopril because of hypertension, cardiomyopathy Follow-up in six weeks or sooner as clinically indicated Epi Ratliff MD, [facility] This note is dictated and transcribed using [employer] Direct Software. Furniture And Bedding Inspector variancesmay occur. Despite proofreading, typographical errors may occur. ICE STATION OPERATOR documented in this encounter Plan of Treatment Not on file documented as of this encounter Visit Diagnoses Diagnosis Coronary artery disease of [place] artery of [place] heart with stable angina pectoris (HCC)- Primary Chronic systolic congestive heart failure (CMS/HCC) (HCC) Hyperlipidemia LDL goal <70 Other and unspecified hyperlipidemia CATHERINE (obstructive sleep apnea) Obstructive sleep apnea (adult) (pediatric) documented in this encounter Discontinued Medications Medication Sig Discontinue Reason Start Date End Da te spironolactone (ALDACTONE) 25 mg tablet Take 1 tablet by mouth once daily Therapy completed 03/20/2024 04/30/2024 documented as of this encounter Historical Medications * This list may reflect changes made after this encounter. naproxen-pseudoep hedrine 220-120 mg tablet extended release 12 hr Take by mouth ibuprofen 200 mg tab/cap Take by mouth every 6 (six) hours as needed for pain added in this encounter Care Teams Automotive Service Professional Relationship Specialty Start Date End Date Reece Umanzor MD [address] [place] [address] PCP - General Family Medicine 12/26/19 Reece Umanzor MD [address] [place] [address] Family Medicine 12/26/19 documented as of this encounter
--- OUTSIDE RECORDS SUMMARY | 2024-04-30 14:27 | XMS_ITS | Referral Summary ---
Author Organization [facility] [address] Address [address] [place] [address] Care Team Providers Care Production Tester Name Role Phone Reece Umanzor MD Primary Care Prov ider Reece Umanzor MD Unavailable + Encounters Date Type Department Care Team Description 04/30/2024 1:00 PM BAG PRESSER Office Visit [facility] Cardiology [address] [place] [phone] Epi Ratliff MD Coronary artery disease of timbi-sha shoshone artery of tim[place] shoshone heart with stable angina pectoris (HCC) (Primary Dx); Chronic systolic congestive heart failure (CMS/HCC) (HCC); Hyperlipidemia LDL goal <70; CATHERINE (obstructive sleep apnea) from Last 3 Months Allergies Active Allergy Reactions Criticality Noted Date Comments Pollen Extracts Unknown 01/09/2020 Medications aspirin 81 mg enteric coated tablet Take 1 tablet (81 mg total) by mouth daily Active acetaminophen (TYLENOL) 325 mg tablet Take 2 tablets (650 mg total) by mouth every 6 (six) hours as needed for pain Active UNABLE TO FIND Take 2 each by mouth 2 (two) times a day Med Name: Relief Factor OTC supplement containing icariin, resveratrol, turmeric, omega-3 Active rosuvastatin (CRESTOR) 40 mg tabletIndicati ons:Hyperlipid emia LDL goal <70,Coronary artery disease of [place] shosh[place] artery of tim[place]sha shoshone heart with stable angina pectoris (HCC) Take 1 tablet (40 mg total) by mouth daily 90 tablet 3 09/12/[address] (PROTONIX) 40 mg EC tablet Take 1 tablet by mouth once daily 90 tablet 2 12/05/19 24 Active furosemide (LASIX) 40 mg tablet Take 1 tablet by mouth twice daily 180 tablet 03/20/20 24 Active lisinopriL (PRINIVIL,ZEST RIL) 20 mg tablet Take 1 tablet by mouth once daily 90 tablet 03/20/20 24 Active carvediloL (COREG) 12.5 mg tablet TAKE 1 TABLET BY MOUTH EVERY 12 HOURS 180 tablet 03/20/20 24 Active clopidogreL (PLAVIX) 75 mg tablet Take 1 tablet by mouth once daily 30 tablet 04/17/19 25 Active ibuprofen 200 mg tab/cap Take by mouth every 6 (six) hours as needed for pain Active naproxen-pseud oephedrine 220-120 mg tablet extended release 12 hr Take by mouth Ac tive clopidogreL (PLAVIX) 75 mg tablet Take 1 tablet by mouth once daily 30 tablet 03/20/20 24 025 Discontinued spironolactone (ALDACTONE) 25 mg tablet Take 1 tablet by mouth once daily 90 tablet 03/20/20 24 025 Discontinued(Th erapy completed) Active Problems Problem Noted Date Diagnosed Date CATHERINE (obstructive sleep apnea) 03/12/2020 Hyperlipidemia LDL goal <70 03/12/2020 Chronic systolic congestive heart failure (CMS/H CC) 03/12/2020 Presence of stent in coronary artery 02/06/2020 Hx of CABG 01/09/2020 Prediabetes 01/09/2020 Coronary artery disease of n ative artery of timbi-sha shoshone heart with stable angina pectoris 08/07/2014 Cardiomyopathy, ischemic 08/07/2014 Social History Tobacco Use Types Packs/Day Years Used Date Smoking Tobacco: Former Alcohol Use Standard Drinks/Week Comments Yes 14 (1 standard drink = 0.6 oz pu re alcohol) Personal Safety Answer Date Recorded Getting School Help Needed Not on file 05/26 Sex and Gender Information Value Date Recorded Sex Assigned at Not on file Legal Sex Male 9:01 PM BAG PRESSER Gender Identity Not on file Sexual Orientation Not on file Last Filed Vital Signs Vital Sign Reading Time Taken Comments Blood Pressure 92/62 04/30/2024 1:04 PM BAG PRESSER Pulse 75 04/30/2024 1:04 PM BAG PRESSER Temperature 36.1 ??C (97 ??F) 03/05/2020 1:10 PM BAG PRESSER Respiratory Rate - - Oxygen Saturation 98% 04/30/2024 1:04 PM BAG PRESSER Inhaled Oxygen Concentration - - Weight 110.7 kg (244 lb) 04/30/2024 1:04 PM BAG PRESSER Height 185.4 cm (6' 1 ) 04/30/2024 1:04 PM BAG PRESSER Body Mass Index 32.19 04/30/2024 1:04 PM BAG PRESSER Plan of Treatment Not on file Insurance Care Teams Production Tester Relationship Specialty Start Date End Date Reece Umanzor MD [address] [place] [address] PCP - General Family Medicine 12/26/19 Reece Umanzor MD [address] [place] [address] Family Medicine 12/26/19
--- OUTSIDE RECORDS SUMMARY | 2024-04-30 14:27 | XMS_ITS | Clinical Summary ---
Author Organization [facility] [address] Address [address] [place] [address] Care Team Providers Care Commercial Lending Vice President Name Role Phone Reece Umanzor MD Primary Care Prov ider Reece Umanzor MD Unavailable + Allergies Active Allergy Reactions Criticality Noted Date [...] emia LDL goal <70,Coronary artery disease of [place] artery of [place] heart with stable angina pectoris (HCC) Take [...] artery disease of n ative artery of coy[place] valley heart with stable angina pectoris 08/07/2014 Cardiomyopathy, ischemic 08/07/2014 Encounters Date Type Department Care Team Description 04/30/2024 1:00 PM DRAIN LAYER Office Visit [facility] Cardiology [address] [place] [address] Epi Ratliff MD Coronary artery disease of [place] artery of [place] heart with stable angina pectoris (HCC) (Primary Dx); Chronic systolic congestive heart failure (CMS/HCC) (HCC); Hyperlipidemia LDL goal <70; CATHERINE (obstructive sleep apnea) from Last 3 Months Surgical History Surgery Date Site/Laterality Comments BYPASS GRAFT CORONARY ANGIOPLASTY ANTERIOR CRUCIATE LIGAMENT REPAIR Right ROTATOR CUFF REPAIR Bilateral left-1x, right-2x CARPAL TUNNEL RELEASE Bilateral BYPASS GRAFT Medical History Medical History Date Comments Hypertension Heart attack (HCC) Cardiomyopathy (HCC) Sleep apnea Heart failure (HCC) Obesity Acid indigestion Arthritis Family History Medical History Relation Name Comments No Known Problems Father No Known Problems Mother No Known Problems Sister Relation Name Status Comments Father Alive Mother Alive Sister Alive Social History Tobacco Use Types Packs/Day Years Used Date Smoking Tobacco: Former Alcohol Use Standard Drinks/Week Comments Yes 14 (1 standard drink = 0.6 oz pu re alcohol) Personal Safety Answer Date Recorded Getting School Help Needed Not on file 05/26 Sex and Gender Information Value Date Recorded Sex Assigned at Not on file Legal Sex Male 9:01 PM DRAIN LAYER Gender Identity Not on file Sexual Orientation Not on file Obstetrics History Last Filed Vital Signs Vital Sign Reading Time Taken Comments Blood Pressure 92/62 04/30/2024 1:04 PM DRAIN LAYER Pulse 75 04/30/2024 1:04 PM DRAIN LAYER Temperature 36.1 ??C (97 ??F) 03/05/2020 1:10 PM DRAIN LAYER Respiratory Rate - - Oxygen Saturation 98% 04/30/2024 1:04 PM DRAIN LAYER Inhaled Oxygen Concentration - - Weight 110.7 kg (244 lb) 04/30/2024 1:04 PM DRAIN LAYER Height 185.4 cm (6' 1 ) 04/30/2024 1:04 PM DRAIN LAYER Body Mass Index 32.19 04/30/2024 1:04 PM DRAIN LAYER Plan of Treatment Health Maintenance Due Date Last Done Comments Colon Cancer Screening-Colonoscopy 1962 Depression Screening 1962 Hepatitis C Screening 1962 Prostate Cancer Screening-PSA 1962 Pneumococcal vaccine <65 (1 of 2 - PCV) 1968 Hepatitis B Screening 1980 Regular Well Visit/Exam 18-64 1980 Zoster Vaccine (1 of 2) 2012 Influenza Vaccine (#1) 2023 01/24/2022, 2019 DTaP/Tdap/Td Vaccine (2 - Td or Tdap) 01/09/203112/[address] [place] [address] [address] [place] [address] Care Teams Commercial Lending Vice President Relationship Specialty Start Date End Date Reece Umanzor MD [address] [place] [address] PCP - General Family Medicine 12/26/19 Reece Umanzor MD [address] [place] [address] Family Medicine 12/26/19
[2024-04-30 14:45] LABS: Anion Gap 9 mmol/L (4-12); Blood Urea Nitrogen 29 mg/dL (9-20); Calcium 9.2 mg/dL (8.4-10.2); Carbon Dioxide 26 mmol/L (22-30); Chloride 100 mmol/L (98-107); Estimated Glomerular Filt Rate 42; Glucose 126 mg/dL (65-110); Potassium 4.4 mmol/L (3.4-5.0); Sodium 135 mmol/L (137-145)
== END 2024-04-30 13:47 | disposition home or self-care (01) ==
LOC: ANHLAB 13:50
PROVIDERS: PCP Family Medicine Adolescent Medicine; Visit Provider Nurse Practitioner
DX: N17.9 Acute kidney failure, unspecified (principal); E87.5 Hyperkalemia
CPT/HCPCS: 36415; 80048

== ENCOUNTER 2024-05-23 00:11 | Day surgery (SDC) | payer OTHER, SELFPAY ==
--- NOTE | 2024-05-17 14:11 | SUR.PREOP ---
Patient needed cardiac clearance to hold Plavix for Colonoscopy on May 23 2024, by Dr. Ratliff. Last dose would have to be Sat, May 18. First attempt to receive clearance was made on May 10 2024 when the clearance form was faxed. A follow up call on this fax was made on May 16 and was told that Dr. Ratliff would review it and be sending it back over. No fax received as of May 17 early afternoon, phone call placed to office again and the staff stated they would have Dr. Ratliff try to sign in between patients. I then received a call shortly after that, that Dr. Ratliff is not in office until MondayMay 20 and that no other provider was available to sign off, which would be too late to receive the clearance as the patient would need to stop the blood thinner May 18. Patient being rescheduled to a later date until clearance is received.
[2024-05-22 09:35] VITALS: BMI 31.6
--- NOTE | 2024-05-22 10:26 | PC.NURSE ---
05/22/24 Pt called and did not know he had been rescheduled due to waiting on clearance from Dr. Ratliff. Clearance received on 05/20/24 afternoon. Pt states he stopped his Plavix on 05/17/24 and his iron -as he thought he would need to for procedure. Pt placed back on schedule for 05/23/24 and will proceed with procedure.
--- OUTSIDE RECORDS SUMMARY | 2024-05-23 00:15 | XMS_ITS | Clinical Summary ---
Author Organization [facility] [address] Address [address] [place] [address] Care Team Providers Care Commercial Tire Service Technician Name Role Phone Reece Umanzor MD Primary [...] 12 HOURS 180 tablet 03/20/20 24 Active ibuprofen 200 mg tab/cap Take by mouth every 6 (six) hours as needed for pain Active naproxen-pseud oephedrine 220-120 mg tablet extended release 12 hr Take by mouth Ac tive clopidogreL (PLAVIX) 75 mg tablet Take 1 tablet by mouth once daily 30 tablet 10 05/22/19 25 Active spironolactone (ALDACTONE) 25 mg tablet Take 1 tablet by mouth once daily 90 tablet 03/20/20 24 025 Discontinued(Th erapy completed) clopidogreL (PLAVIX) 75 mg tablet Take 1 tablet by mouth once daily 30 tablet 04/17/19 25 025 Discontinued Active Problems Problem Noted Date Diagnosed Date [...] Encounters Date Type Department Care Team Description 05/17/2024 Telephone [facility] Medical [facility] Cardiology [address] [facility] [address] [place] [phone] Epi Ratliff MD 04/30/2024 1:00 PM WELDER APPRENTICE COMBINATION Office Visit [facility] Medical [facility] Cardiology [address] [place] [phone] Epi Ratliff MD Coronary artery disease of coyote valley artery of coyote valley heart with stable angina pectoris (HCC) (Primary Dx); Chronic systolic congestive heart failure (CMS/HCC) (HCC); Hyperlipidemia LDL goal <70; CATHERINE (obstructive sleep apnea) 04/30/2024 Orders Only [facility] Medical [facility] Cardiology [address] [place] [phone] Provider, MD Mick from Last 3 Months Surgical History Surgery [...] drink = 0.6 oz pu re alcohol) Sex and Gender Information Value Date Recorded Sex Assigned at Not on file Legal Sex Male 9:01 PM WELDER APPRENTICE COMBINATION Gender Identity Not on file Sexual Orientation Not on file Obstetrics History Last Filed Vital Signs Vital Sign Reading Time Taken Comments Blood Pressure 92/62 04/30/2024 1:04 PM WELDER APPRENTICE COMBINATION Pulse 75 04/30/2024 1:04 PM WELDER APPRENTICE COMBINATION Temperature 36.1 C (97 F) 03/05/2020 1:10 PM WELDER APPRENTICE COMBINATION Respiratory Rate - - Oxygen Saturation 98% 04/30/2024 1:04 PM WELDER APPRENTICE COMBINATION Inhaled Oxygen Concentration - - Weight 110.7 kg (244 lb) 04/30/2024 1:04 PM WELDER APPRENTICE COMBINATION Height 185.4 cm (6' 1 ) 04/30/2024 1:04 PM WELDER APPRENTICE COMBINATION Body Mass Index 32.19 04/30/2024 1:04 PM WELDER APPRENTICE COMBINATION Plan of Treatment Health Maintenance Due Date Last Done Comments Colon Cancer Screening-Colonoscopy 1962 Depression Screening 1962 Hepatitis C Screening 1962 Prostate Cancer Screening-PSA 1962 Hepatitis B Screening 1980 Regular Well Visit/Exam 18-64 1980 Pneumococcal vaccine <65 (1 of 2 - PCV) 1981 Zoster Vaccine (1 of 2) 2012 Influenza Vaccine (#1) 2023 01/24/2022, 2019 DTaP/Tdap/Td Vaccine (2 - Td or Tdap) 01/09/203112/2020 Procedures Procedure Name Priority Date/Time Associated Diagnosis Comments POCT LIPID PANEL Routine 04/30/2024 1:05 PM WELDER APPRENTICE COMBINATION Coronary artery disease of coy[place] artery of [place] heart with stable angina pectoris (HCC) Hyperlipidemia LDL goal <70 TRANSTHORACIC ECHO (TTE) COMPLETE W DOPPLER/CF Routine 04/05/2024 6:13 PM WELDER APPRENTICE COMBINATION ECG 12-LEAD Routine 04/04/2024 6:12 PM WELDER APPRENTICE COMBINATION from Last 3 Months Results * POCT lipid panel (04/30/2024 1:05 PM WELDER APPRENTICE COMBINATION) Cholesterol, POC 124 mg/dL HDL, POC 23 mg/dL Triglycerides, POC 111 mg/dL LDL Cholesterol POC 79 mg/dL Chol/HDL Ratio, POC 3.4 Non-HDL Cholesterol, POC 101 mg/dL Cholesterol Total, POC 124 mg/dL Capillary blood 04/30/2024 1 :05 PM WELDER APPRENTICE COMBINATION Epi Ratliff MD POINT OF CARE TEST ORDERA BLES Final Result * Transthoracic Echo (TTE) Complete W Doppler/CF (04/05/2024 6:13 PM WELDER APPRENTICE COMBINATION) Anatomical Region Laterality Modality Ultrasound Historical Provider CV ECHO PROCEDURES Edited Result - Final * ECG 12 lead (04/04/2024 6:12 PM WELDER APPRENTICE COMBINATION) Historical Provider ECG ORDERABLES Edited Re sult - Final from Last 3 Months Insurance [facility] Care Teams Commercial Tire Service Technician Relationship Specialty Start Date End Date Reece Umanzor MD [address] [place] [address] PCP - General Family Medicine 12/26/19 Reece Umanzor MD [address] [place] [address] Family Medicine 12/26/19
--- OUTSIDE RECORDS SUMMARY | 2024-05-23 00:15 | XMS_ITS | Encounter Summary ---
Author Organization [facility] Healthcare Address [address] [place] [address] Care Team Providers Care Vocational Rehabilitation Consultant Name Role Phone Reece Umanzor MD Primary Care Prov ider Reece Umanzor MD Unavailable + Encounter Details Date Type Department Care Team (Late st Contact Info) Description 05/17/2024 Telephone [facility] Medical [facility] Cardiology [address] [facility] [address] [place] [phone] Epi Ratliff MD [address] [place] [place] [id number] Social History Tobacco Use Types Packs/Day Years Used Date Smoking Tobacco: Former Alcohol Use Standard Drinks/Week Comments Yes 14 (1 standard drink = 0.6 oz pu re alcohol) Sex and Gender Information Value Date Recorded Sex Assigned at Not on file Legal Sex Male 9:01 PM WOOL WASHER Gender Identity Not on file Sexual Orientation Not on file documented as of this encounter Miscellaneous Notes * Telephone Encounter - Ro Llanes RN - 05/20/2024 11:52 AM WOOL WASHER Noted WASHER * Telephone Encounter - Bernie Laura - 05/20/2024 11:44 AM CST Hortencia from [facility] states they had to reschedule pt since they did not receive clearancerequest yet. They will wait for clearance request to be faxed back to them before rescheduling. Contact: WASHER * Telephone Encounter - Ro Llanes RN - 05/17/2024 2:16 PM WOOL WASHER Spoke with Brii, advised that MAF is off today and will address on Monday. WASHER * Telephone Encounter - Bernie Laura - 05/17/2024 1:45 PM CST Brii from [facility] states pt is scheduled on 05/23 and he would need to hold plavix starting tomorrow. Requesting call with an update on cardiac clearance request. Contact: WASHER documented in this encounter Plan of Treatment Not on file documented as of this encounter Visit Diagnoses Not on filedocumented in this encounter Care Teams Vocational Rehabilitation Consultant Relationship Specialty Start Date End Date Reece Umanzor MD [address] [place] [address] PCP - General Family Medicine 12/26/19 Reece Umanzor MD [address] [place] [address] Family Medicine 12/26/19 documented as of this encounter
--- OUTSIDE RECORDS SUMMARY | 2024-05-23 00:15 | XMS_ITS | Referral Summary ---
Author Organization [facility] [address] [place] [address] [address] [place] [address] Care Team Providers Care Warm In Name Role Phone Reece Umanzor MD Primary Care Prov ider Reece Umanzor MD Unavailable + Encounters Date Type Department Care Team Description 05/17/[address] [facility] Medical [facility] Cardiology [address] [place] [phone] Epi Ratliff MD 04/30/[address] [facility] Medical [facility] Cardiology [address] [place] [phone] ProviderMick MD 04/30/2024 1:00 PM MIDDLE SCHOOL TEACHER Office Visit 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 (HCC) Take [...] artery disease of n ative artery of iroquois heart with stable angina pectoris 08/07/2014 Cardiomyopathy, ischemic 08/07/2014 Social History Tobacco Use Types Packs/Day Years Used Date Smoking Tobacco: Former Alcohol Use Standard Drinks/Week Comments Yes 14 (1 standard drink = 0.6 oz pu re alcohol) Sex and Gender Information Value Date Recorded Sex Assigned at Not on file Legal Sex Male 9:01 PM MIDDLE SCHOOL TEACHER Gender Identity Not on file Sexual Orientation Not on file Last Filed Vital Signs Vital Sign Reading Time Taken Comments Blood Pressure 92/62 04/30/2024 1:04 PM MIDDLE SCHOOL TEACHER Pulse 75 04/30/2024 1:04 PM MIDDLE SCHOOL TEACHER Temperature 36.1 C (97 F) 03/05/2020 1:10 PM MIDDLE SCHOOL TEACHER Respiratory Rate - - Oxygen Saturation 98% 04/30/2024 1:04 PM MIDDLE SCHOOL TEACHER Inhaled Oxygen Concentration - - Weight 110.7 kg (244 lb) 04/30/2024 1:04 PM MIDDLE SCHOOL TEACHER Height 185.4 cm (6' 1 ) 04/30/2024 1:04 PM MIDDLE SCHOOL TEACHER Body Mass Index 32.19 04/30/2024 1:04 PM MIDDLE SCHOOL TEACHER Plan of Treatment Not on file Procedures Procedure Name Priority Date/Time Associated Diagnosis Comments POCT LIPID PANEL Routine 04/30/2024 1:05 PM MIDDLE SCHOOL TEACHER 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 (HCC) Hyperlipidemia LDL goal <70 TRANSTHORACIC ECHO (TTE) COMPLETE W DOPPLER/CF Routine 04/05/2024 6:13 PM MIDDLE SCHOOL TEACHER ECG 12-LEAD Routine 04/04/2024 6:12 PM MIDDLE SCHOOL TEACHER from Last 3 Months Results * POCT lipid panel (04/30/2024 1:05 PM MIDDLE SCHOOL TEACHER) Cholesterol, POC 124 mg/dL HDL, POC 23 mg/dL Triglycerides, POC 111 mg/dL LDL Cholesterol POC 79 mg/dL Chol/HDL Ratio, POC 3.4 Non-HDL Cholesterol, POC 101 mg/dL Cholesterol Total, POC 124 mg/dL Capillary blood 04/30/2024 1 :05 PM MIDDLE SCHOOL TEACHER Epi Ratliff MD POINT OF CARE TEST ORDERA BLES Final Result * Transthoracic Echo (TTE) Complete W Doppler/CF (04/05/2024 6:13 PM MIDDLE SCHOOL TEACHER) Anatomical Region Laterality Modality Ultrasound Historical Provider CV ECHO PROCEDURES Edited Result - Final * ECG 12 lead (04/04/2024 6:12 PM MIDDLE SCHOOL TEACHER) us Historical Provider MD KINCAID ORDERABLES Edited Re sult - Final from Last 3 Months Insurance [address] [facility] [place] [id number] [facility] Care Teams Warm In Relationship Specialty Start Date End Date Reece Umanzor MD [address] [place] [address] PCP - General Family Medicine 12/26/19 Reece Umanzor MD [address] [place] [address] Family Medicine 12/26/19
[2024-05-23 11:02] VITALS: BP 133/74; PULSE 85; RESP 18; TEMP 36.1; O2SAT 100
[2024-05-23] MEDS: LACTATED RINGERS 1,000 ML 150 ML IV CONT (11:12)
--- NOTE | 2024-05-23 11:48 | WPDANESEPPF ---
Anes - Initial Pre Proc Eval Procedure: Operation Date: 05/23/24 12:00 Proposed Procedures p Colonoscopy - John Spencer MD Date/Time: 05/23/24 11:48 Surgeon: John Spencer MD Pre Op Diagnosis: Hemorrhage of anus and rectum, anemia Patient Data Age: 63 Gender: M Height: 1.85 m Weight: 111.9 kg Last Vital Signs Temp 97 F L 05/23/24 11:02 Pulse 85 05/23/24 11:02 Resp 18 05/23/24 11:02 BP 133/74 05/23/24 11:02 Pulse Ox 100 05/23/24 11:02 O2 Del Method Room Air 05/23/24 11:02 Allergies Allergy/AdvReac Type Severity Reaction Status Date / Time No Known Allergies Allergy Verified 05/23/24 10:59 Home Medications ?Medication ?Instructions ?Recorded ?Confirmed ?Type carvedilol 12.5 mg tablet (Coreg) 12.5 mg PO Q12HR #60 tabs 12/27/19 05/23/24 Rx clopidogrel 75 mg tablet 75 mg PO DAILY #30 tabs 12/27/19 05/23/24 Rx lisinopril 20 mg tablet 20 mg PO DAILY #30 tabs 12/27/19 05/23/24 Rx pantoprazole 40 mg tablet,delayed 40 mg PO QAM #30 tabs 12/27/19 05/23/24 Rx release rosuvastatin 40 mg tablet 40 mg PO DAILY 04/05/24 05/23/24 History ferrous sulfate 325 mg (65 mg 325 mg PO DAILY #90 tabs 05/08/24 05/23/24 Rx iron) tablet,delayed release tramadol 50 mg tablet 50 mg PO BID PRN pain #20 tabs 05/08/24 05/22/24 Rx furosemide 40 mg tablet 40 mg PO BID PRN edema 05/22/24 05/23/24 History Patient hx anesthesia problems: none Family hx anesthesia problems: none Results Review: All pre-operative results and documents have been reviewed as part of the pre-operative evaluation. [facility] Past Medical History Medical History Nonsustained ventricular tachycardia Ischemic cardiomyopathy Hyperlipidemia Essential hypertension GERD (gastroesophageal reflux disease) Dilatation of esophagus Obstructive sleep apnea on CPAP CHF (congestive heart failure) Coronary artery disease Surgical History Surgical History History of repair of anterior cruciate ligament of right knee History of repair of left rotator cuff x2 History of repair of right rotator cuff History of bilateral carpal tunnel release Hx of CABG 2 vessel July 2014 at [place] Family History Family History Mother Diabetes mellitus Father Prostate carcinoma Sibling Intellectual disability younger sister Social History Social History Social History: quit smoking around 2014 Smoking packs per day: 1 Smoking cigarettes per day: 20.0 Years smoked: 20 Smoking pack-years: 20.00 Smoking status: Former smoker Tobacco type: cigarettes Alcohol intake: current Drinks per week: 2 Alcohol use details: DRINKS Substance use: never Substance use type: does not use Do You Feel Safe in your Home?: Yes Lack of Transportation: No Lack of Food: Never True Current Housing: I Have Housing Concerned About Future Housing: No Difficulty Paying Gas/Electric Bills: No Difficulty Paying for Meds: No Currently Unemployed: No Education: High School Diploma/GED Difficulty w/ Childcare or Family Care: No Living arrangements: alone Gender identity (if verbalized by the patient): Male Spiritual care concerns: No Anes - Eval Final PreProcedure Day of Procedure 05/23/24 11:48 Patient weight: obese Lungs: normal air movement Airway: Mallampati scale class II Neurological: alert and oriented Last oral intake: >/= 8 hours ASA classification: IV Emergent: no Anesthetic plan: proceed Anesthesia type and monitoring: general GIVS and standard monitoring Results Review: All pre-operative results and documents have been reviewed as part of the pre-operative evaluation. HTN, hyperlipidemia, CATHERINE no CPAP since wt loss, CABG 2014, PTCA x 2019, plavix held. Cardio note reviewed and pt stable of recent, now w anemia. Informed Consent: The patient's anesthetic plan and its attendant risks and benefits were discussed with the patient/family/POA. Questions were solicited and answers provided to the satisfaction of the patient/family/POA.
--- NOTE | 2024-05-23 11:53 | P.HP_ITS ---
History of Present Illness History of Present Illness Consent: Risks, benefits, and alternatives have been discussed and questions answered. Patient agrees to proceed with procedure. Chief complaint: Hemorrhage of anus and rectum, anemia Narrative: Guillermo Nieto is a 63 year old male here for first colonoscopy, he has anemia Review of Systems Review of Systems: All systems reviewed & are unremarkable except as noted in HPI and below PMFSH Past Medical History Medical History Nonsustained ventricular tachycardia Ischemic cardiomyopathy Hyperlipidemia Essential hypertension GERD (gastroesophageal reflux disease) Dilatation of esophagus Obstructive sleep apnea on CPAP CHF (congestive heart failure) Coronary artery disease Surgical History Surgical History History of repair of anterior cruciate ligament of right knee History of repair of left rotator cuff x2 History of repair of right rotator cuff History of bilateral carpal tunnel release Hx of CABG 2 vessel July 2014 at [facility] Family History Family History Mother Diabetes mellitus Father Prostate carcinoma Sibling Intellectual disability younger sister Social History Social History Social History: quit smoking around 2014 Smoking packs per day: 1 Smoking cigarettes per day: 20.0 Years smoked: 20 Smoking pack-years: 20.00 Smoking status: Former smoker Tobacco type: cigarettes Alcohol intake: current Drinks per week: 2 Alcohol use details: DRINKS Substance use: never Substance use type: does not use Do You Feel Safe in your Home?: Yes Lack of Transportation: No Lack of Food: Never True Current Housing: I Have Housing Concerned About Future Housing: No Difficulty Paying Gas/Electric Bills: No Difficulty Paying for Meds: No Currently Unemployed: No Education: High School Diploma/GED Difficulty w/ Childcare or Family Care: No Living arrangements: alone Gender identity (if verbalized by the patient): Male Spiritual care concerns: No Meds Home Medications and Allergies Home Medications ?Medication ?Instructions ?Recorded ?Confirmed ?Type carvedilol 12.5 mg tablet (Coreg) 12.5 mg PO Q12HR #60 tabs 12/27/19 05/23/24 Rx clopidogrel 75 mg tablet 75 mg PO DAILY #30 tabs 12/27/19 05/23/24 Rx lisinopril 20 mg tablet 20 mg PO DAILY #30 tabs 12/27/19 05/23/24 Rx pantoprazole 40 mg tablet,delayed 40 mg PO QAM #30 tabs 12/27/19 05/23/24 Rx release rosuvastatin 40 mg tablet 40 mg PO DAILY 04/05/24 05/23/24 History ferrous sulfate 325 mg (65 mg 325 mg PO DAILY #90 tabs 05/08/24 05/23/24 Rx iron) tablet,delayed release tramadol 50 mg tablet 50 mg PO BID PRN pain #20 tabs 05/08/24 05/22/24 Rx furosemide 40 mg tablet 40 mg PO BID PRN edema 05/22/24 05/23/24 History Allergies Allergy/AdvReac Type Severity Reaction Status Date / Time No Known Allergies Allergy Verified 05/23/24 10:59 Vital Signs Vital Signs - 24 hr 05/23/24 11:02 Temperature 97 F L Pulse Rate 85 Respiratory Rate 18 Blood Pressure 133/74 Pulse Oximetry 100 Oxygen Delivery Room Air Exam Const: General: comfortable and no acute distress HENMT: Face/Nose/Sinus: Normal nares present Eyes: General: appearance normal, both eyes and all related structures Neck: Neck: no JVD Resp: Auscultation: clear to auscultation bilaterally Cardio: Rate: regular rate Rhythm: regular rhythm GI: Inspection: non-distended GI Palp: Yes Soft to palpation Skin: General skin exam: normal color Neuro: Speech: normal speech Extrem: General: normal to inspection Psych: Mental Status: mental status grossly normal Assessment and Plan Assessment and plan (1) Anemia: Code(s): D64.9 - Anemia, unspecified Status: Acute Assessment and Plan: colonoscopy
[2024-05-23 12:17] VITALS: BP 104/64; PULSE 72; RESP 19; O2SAT 99
[2024-05-23 12:27] VITALS: BP 106/60; PULSE 68; RESP 18; O2SAT 97
[2024-05-23 12:37] VITALS: BP 126/75; PULSE 77; RESP 18; O2SAT 100
== END 2024-05-23 12:51 | disposition home or self-care (01) ==
PROVIDERS: PCP Nurse Practitioner Family; Referring Provider Nurse Practitioner Family; Visit Provider Internal Medicine Gastroenterology
PROC: 0DJD8ZZ Inspection of Lower Intestinal Tract, Via Natural or Artificial Opening Endoscopic (ICD-10-PCS; CPT 45378; principal; 2024-05-23 12:00)
DX: D12.2 Benign neoplasm of ascending colon (principal); D12.5 Benign neoplasm of sigmoid colon; D12.8 Benign neoplasm of rectum; K64.8 Other hemorrhoids; D64.9 Anemia, unspecified; E78.5 Hyperlipidemia, unspecified; K21.9 Gastro-esophageal reflux disease without esophagitis; G47.33 Obstructive sleep apnea (adult) (pediatric); I25.10 Atherosclerotic heart disease of native coronary artery without angina pectoris; I11.0 Hypertensive heart disease with heart failure; I50.9 Heart failure, unspecified; I47.20 Ventricular tachycardia, unspecified; I25.5 Ischemic cardiomyopathy; E66.9 Obesity, unspecified; Z68.32 Body mass index [BMI] 32.0-32.9, adult; Z79.02 Long term (current) use of antithrombotics/antiplatelets; Z79.891 Long term (current) use of opiate analgesic; Z99.89 Dependence on other enabling machines and devices; Z98.890 Other specified postprocedural states; Z95.1 Presence of aortocoronary bypass graft; Z87.891 Personal history of nicotine dependence; Z80.42 Family history of malignant neoplasm of prostate
CPT/HCPCS: 45385; 88305; J2003; J2704; J7120

== ENCOUNTER 2025-01-20 00:58 | Emergency (ER) | payer SELFPAY ==
[2025-01-20] VITALS (39 sets, daily range): BP systolic 29–172; BP diastolic 23–135; PULSE 32–136; RESP 2–46; TEMP 36.6; O2SAT 66–100
--- NOTE | ~2025-01-20 | CT_ITS ---
EXAMINATION: CTA chest PE abdomen pel DATE: 01/20/2025 03:16 INDICATION: Abdominal pain. Tachypnea. TECHNIQUE: Computed tomography angiography (CTA) of the chest was performed with 100 mL Omnipaque-350 intravenous contrast timed to evaluate the pulmonary arteries. Coronal maximum intensity projection 3D-reconstructions were created by the technologist. Computed tomography (CT) of the abdomen and pelvis was performed with intravenous contrast. Automated exposure control and iterative reconstruction technique were employed. The dose-length product was 2115.40 mGy-cm. COMPARISON: Thoracic spine CT 01/09/2021 FINDINGS: CTA chest: The lungs demonstrate mild atelectasis. There is a small right pleural effusion with pleural thickening. There is a trace left pleural effusion. Cardiomegaly is noted. There is extensive subendocardial fat in left ventricle of the heart, consistent with old infarcts. There are coronary artery calcifications. There are changes of coronary artery bypass grafting. No pericardial effusion. There is no pulmonary embolus. There are bridging endplate osteophytes at multiple levels in the spine, consistent with diffuse idiopathic skeletal hyperostosis (DISH). CT abdomen and pelvis: There is periportal edema in the liver. The gallbladder is distended and contains gallstones. Gallbladder wall thickening is noted. The spleen and pancreas are normal. There is a chronic mass in left adrenal gland measuring 2.6 cm, likely an adenoma. There is cortical thinning of the kidneys. There are bilateral inguinal hernias containing fat. The prostate is mildly enlarged. There are no dilated loops of bowel. The appendix is normal. There is an umbilical hernia containing fat. There are no pathologically enlarged lymph nodes. There is no free intraperitoneal fluid. There is severe lumbar spondylosis. IMPRESSION: 1. Acute cholecystitis. 2. Small right pleural effusion with pleural thickening, likely an exudate. Reviewed, dictated and finalized at location E.
--- NOTE | ~2025-01-20 | XR_ITS ---
Examination: XR chest 1V portable Clinical History: SOB Comparison: 04/04/2024 Technique: Portable AP Findings: Cardiomegaly. Small right effusion. Associated basilar atelectasis. No acute bony abnormality. IMPRESSION: 1. Small right pleural effusion. 2. Right basilar atelectasis. Reviewed, dictated and finalized at location R.
--- NOTE | ~2025-01-20 | XR_ITS ---
Examination: XR chest ET placement Clinical History: ET TUBE PLACEMENT Comparison: Several hours prior Technique: Portable AP Findings: ET tube, NG tube. Cardiomegaly. Small right effusion, associated basilar atelectasis. Developing left basilar atelectasis. No acute bony abnormality. IMPRESSION: 1. ET tube and NG tube in place. Reviewed, dictated and finalized at location R.
--- NOTE | 2025-01-20 01:10 | ECG_ITS ---
Test Date: 2025-01-20 01:12:35 Measurements Intervals Brutus Rate: 115 P: 0 UT: 0 QRS: 15 QRSD: 80 T: 117 QT: 299 QTc: 414 Interpretive Statements SINUS TACHYCARDIA WITH ATRIAL PREMATURE COMPLEX DELAYED PRECORDIAL R/S TRANSITION LOW QRS VOLTAGE IN PRECORDIAL LEADS ST-T WAVE ABNORMALITY IN HIGH LATERAL LEADS- CONSIDER ISCHEMIA BASELINE ARTIFACT- I, II, III, AVR, AVL, AVF, V1-V6 ABNORMAL ECG Compared to ECG 04/04/2024 18:22:57 HEART RATE HAS INCREASED Electronically Signed On 01-20-2025 06:11:34 CDT by Asaf Murillo D.O.
[2025-01-20] MEDS: MORPHINE SULFATE (*CRX) 4 MG/ML INJ IV PUSH (01:49)
--- OUTSIDE RECORDS SUMMARY | 2025-01-20 01:49 | XMS_ITS | Encounter Summary ---
Author Organization [facility] Address [address] [place] [id number] Care Team Providers Care Concrete Block Molder Name Role Phone Reece Umanzor MD Primary Care Prov ider Reece Umanzor MD Unavailable + Encounter Details Date Type Department Care Team (Late st Contact Info) Description 04/04/[address] [facility] Health Information Management [address] [place] [id number] Scanning, Provider Social History Tobacco Use Types Packs/Day Years Used Date Smoking Tobacco: Former Alcohol Use Standard Drinks/Week Comments Yes 14 (1 standard drink = 0.6 oz pu re alcohol) Sex and Gender Information Value Date Recorded Sex Assigned at Not on file Legal Sex Male 9:01 PM GRAVITY PROSPECTING OPERATOR Gender Identity Not on file Sexual Orientation Not on file documented as of this encounter Plan of Treatment Not on file documented as of this encounter Procedures Procedure Name Priority Date/Time Associated Diagnosis Comments SCAN - RADIOLOGY/IMAGING 04/04/2024 documented in this encounter Results * SCAN - RADIOLOGY/IMAGING (04/04/2024) Anatomical Region Laterality Modality Other us Provider Scanning Edited Result - Final documented in this encounter Visit Diagnoses Not on filedocumented in this encounter Care Teams Concrete Block Molder Relationship Specialty Start Date End Date Reece Umanzor MD PCP - General Family Medicine 12/26/19 Reece Umanzor MD Family Medicine 12/26/19 documented as of this encounter
--- OUTSIDE RECORDS SUMMARY | 2025-01-20 01:49 | XMS_ITS | Clinical Summary ---
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 Role Phone Reece Umanzor MD Primary [...] turmeric, omega-3 Active rosuvastatin (CRESTOR) 40 mg tabletIndicatio ns:Hyperlipidem ia LDL goal <70,Coronary artery disease of [place] artery of [place] heart with stable angina pectoris Take 1 tablet (40 mg total) by mouth daily 90 tablet [address] (PROTONIX) 40 mg EC tablet Take 1 tablet by mouth once daily 90 tablet 2 4 Active furosemide (LASIX) 40 mg tablet Take 1 tablet by mouth twice daily 180 tablet 4 Active lisinopriL (PRINIVIL,ZESTR [place]) 20 mg tablet Take 1 tablet by mouth once daily 90 tablet 4 Active carvediloL (COREG) 12.5 mg tablet TAKE 1 TABLET BY MOUTH EVERY 12 HOURS 180 tablet 4 Active ibuprofen 200 mg tab/cap Take by mouth every 6 (six) hours as needed for pain Active naproxen-pseudo ephedrine 220-120 mg tablet extended release 12 hr Take by mouth Ac tive clopidogreL (PLAVIX) 75 mg tablet Take 1 tablet by mouth once daily 30 tablet 10 5 Active Active Problems Problem Noted Date Diagnosed Date CATHERINE (obstructive sleep apnea) 03/12/2020 Hyperlipidemia LDL goal <70 03/12/2020 Chronic systolic congestive heart failure (CMS/H CC) 03/12/2020 Presence of stent in coronary artery 02/06/2020 Hx of CABG 01/09/2020 Prediabetes 01/09/2020 Coronary artery disease of n ative artery of [place] heart with stable angina pectoris 08/07/2014 Cardiomyopathy, ischemic 08/07/2014 Surgical History Surgery Date Site/Laterality Comments BYPASS GRAFT CORONARY ANGIOPLASTY ANTERIOR CRUCIATE LIGAMENT REPAIR Right ROTATOR CUFF REPAIR Bilateral left-1x, right-2x CARPAL TUNNEL RELEASE Bilateral BYPASS GRAFT Medical History Medical History Date Comments Hypertension Heart attack (HCC) Cardiomyopathy Sleep apnea Heart failure Obesity Acid indigestion Arthritis Family History Medical [...] on file Legal Sex Male 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 Gender Identity Not on file Sexual Orientation Not on file Obstetrics History Last Filed Vital Signs Vital Sign Reading Time Taken Comments Blood Pressure 92/62 04/30/2024 1:04 PM MANAGER IT SECURITY Pulse 75 04/30/2024 1:04 PM MANAGER IT SECURITY Temperature 36.1 C (97 F) 03/05/2020 1:10 PM MANAGER IT SECURITY Respiratory Rate - - Oxygen Saturation 98% 04/30/2024 1:04 PM MANAGER IT SECURITY Inhaled Oxygen Concentration - - Weight 110.7 kg (244 lb) 04/30/2024 1:04 PM MANAGER IT SECURITY Height 185.4 cm (6' 1) 04/30/2024 1:04 PM MANAGER IT SECURITY Body Mass Index 32.19 04/30/2024 1:04 PM MANAGER IT SECURITY Plan of Treatment Health Maintenance Due Date Last Done Comments Colon Cancer Screening-Colonoscopy 1962 Depression Screening 1962 Hepatitis C Screening 1962 Prostate Cancer Screening-PSA 1962 Hepatitis B Screening 1980 Regular Well Visit/Exam 18-64 1980 Pneumococcal vaccine <65 (1 of 2 - PCV) 1981 Zoster Vaccine (1 of 2) 2012 Influenza Vaccine (#1) 2024 01/24/2022, 2019 DTaP/Tdap/Td Vaccine (2 - Td or Tdap) 01/09/203112/2020 Insurance [facility] [place] Care Teams Diesel Bus Mechanic Relationship Specialty Start Date End Date Reece Umanzor MD PCP - General Family Medicine 12/26/19 Reece Umanzor MD Family Medicine 12/26/19
--- NOTE | 2025-01-20 01:56 | ED_ITS ---
HPI - SOB/Dyspnea General Chief Complaint: Shortness of Breath/Dyspnea Stated Complaint: SOB, stomach cramps x 1-2d Time Seen by Provider: 01/20/25 01:13 History of Present Illness HPI Narrative: 64-year-old male with history of diabetes, CHF, ischemic cardiomyopathy, hyperlipidemia, umbilical hernia. Patient presents to the emergency department with shortness of breath that is worsening as well as abdominal cramping that comes in waves. Started last night and worsening today. States he is out of his home medications for several days secondary to insurance issues. Mild swelling in his legs increased. Does not believe his hernias causing any issues. No nausea, vomiting, chest pain. Was otherwise in his normal state of health. Feels better sitting upright. Related Data Home Medications ?Medication ?Instructions ?Recorded ?Confirmed ?Last Taken ?Type rosuvastatin 40 mg tablet 40 mg PO DAILY 04/05/2405/0505/21/24 History furosemide 40 mg tablet 40 mg PO BID PRN edema 05/2205/23/24 05/21/24 History Allergies Allergy/AdvReac Type Severity Reaction Status Date / Time No Known Allergies Allergy Verified 01/20/25 01:16 Review of Systems 2 Review of Systems: As reviewed above in HPI [facility] Past Medical History Medical History Nonsustained ventricular tachycardia Ischemic cardiomyopathy Hyperlipidemia Essential hypertension GERD (gastroesophageal reflux disease) Dilatation of esophagus Obstructive sleep apnea on CPAP CHF (congestive heart failure) Coronary artery disease Surgical History Surgical History History of repair of anterior cruciate ligament of right knee History of repair of left rotator cuff x2 History of repair of right rotator cuff History of bilateral carpal tunnel release Hx of CABG 2 vessel July 2014 at [facility] Family History Family History Mother Diabetes mellitus Father Prostate carcinoma Sibling Intellectual disability younger sister Social History Social History Social History: quit smoking around 2014 Smoking packs per day: 1 Smoking cigarettes per day: 20.0 Years smoked: 20 Smoking pack-years: 20.00 Smoking status: Former smoker Tobacco type: cigarettes Alcohol intake: current Drinks per week: 2 Alcohol use details: DRINKS Substance use: never Substance use type: does not use Do You Feel Safe in your Home?: Yes Lack of Transportation: No Lack of Food: Never True Current Housing: I Have Housing Concerned About Future Housing: No Difficulty Paying Gas/Electric Bills: No Difficulty Paying for Meds: No Currently Unemployed: No Education: High School Diploma/GED Difficulty w/ Childcare or Family Care: No Living arrangements: alone Gender identity (if verbalized by the patient): Male Spiritual care concerns: No Exam 2 Narrative: GENERAL: Uncomfortable appearing, dyspneic, and tachypneic HEAD: [Normocephalic, atraumatic.] EYES: [PERRLA and EOMI.] ENT: Nares clear, no rhinorrhea or epistaxis. Mucous membranes moist. NECK: Supple. CHEST: Coarse bilateral basilar breath sounds. Tachypneic. HEART: [Regular rate and rhythm]. No murmur heard. [Normal peripheral pulses.] ABDOMEN: Distended, soft, umbilical hernia reducible. Tender to palpation. No overlying skin discoloration EXTREMITIES: Normal range of motion. 1+ peripheral edema. SKIN: Warm, dry, no rash. NEURO: [No focal deficits]. Alert and oriented [x3.] PSYCH: [Normal mood and affect.] Course Vital Signs Vital signs: Vital Signs Temperature 36.6 C 01/20/25 01:03 Pulse Rate 117 H 01/20/25 01:03 Respiratory Rate 32 H 01/20/25 01:03 Blood Pressure 117/65 01/20/25 01:03 Pulse Oximetry 94 01/20/25 01:03 Oxygen Delivery Room Air 01/20/25 01:03 Temperature 36.6 C 01/20/25 01:03 Pulse Rate 66 01/20/25 08:30 Respiratory Rate 24 H 01/20/25 08:30 Blood Pressure 29/23 L 01/20/25 08:30 Pulse Oximetry 84 L 01/20/25 08:12 Oxygen Delivery Mechanical Ventilation 01/20/25 07:15 Fraction of Inspired Oxygen 100 01/20/25 07:15 Procedures Arterial Line Arterial line #1: Date of Arterial Line: 01/20/25 Time of Arterial Line: 06:00 Arterial Line Location: radial Perfomed Emergently - Given emergent patient conditions, temporal constraints may have precluded informed consent: Yes Time Out Performed: Yes Size (Gauge): 18 Technique Used: guide wire technique Post-Procedure: line sutured into place and dry sterile dressing placed Patient Tolerated Procedure: well and no complications Complications: none Central Line Placement Right Femoral: Central Line Date: 01/20/25 Central Line Time: 05:00 Performed Emergently - Given emergent patient condition, temporal constraints may have precluded informed consent.: Yes Time Out Performed: Yes Patient Placed on Monitor/Pulse Ox: Yes Max. Sterile Barrier Technique: hand hygiene Central Line Prep: 2% chlorhexidine scrub Emergently Placed, Full Sterile: prep not done Technique: US-Guided Local Anesthetic: none Ultrasound Used for Placement: Yes Central Line Lumen Inserted: triple Post Procedure: sutured in place, good blood return, all ports aspirated, flushed, capped and sterile dressing applied Patient Tolerated Procedure: well and no complications Complications: none Intubation Intubation #1: Intubation Date: 01/20/25 Intubation Time: 05:00 Time out performed: Yes sedative: Etomidate Mg Given: 20 paralytic: Rocuronium Mg Given: 100 Laryngoscope: fiber optic video scope Tube Size (cm): 7.5 Method of Intubation: orotracheal Number of Attempts: 1 Tube Secured Depth (cm): 25 Tube Secured Location: lips Tube Placement Confirmation: visualized tube passing through cords, equal breath sounds bilaterally, no breath sounds over epigastrium and confirmation by capnometry Patient Tolerated Procedure: well and no complications Intubation Complications: hypotension MDM - SOB/Dyspnea MDM Narrative Medical decision making narrative: 64-year-old male with history of diabetes, CHF, ischemic cardiomyopathy, hyperlipidemia, umbilical hernia. Patient presents to the emergency department with shortness of breath that is worsening as well as abdominal cramping that comes in waves. Started last night and worsening today. States he is out of his home medications for several days secondary to insurance issues. Mild swelling in his legs increased. Does not believe his hernias causing any issues. No nausea, vomiting, chest pain. Was otherwise in his normal state of health. Feels better sitting upright. Patient is uncomfortable appearing and tachypneic, sitting upright with mild edema and coarse breath sounds bilaterally. He has abdominal distention but soft and non peritoneal. Umbilical hernia is reducible but tender to palpation. He is tachycardic and tachypneic but saturating well on room air and has no fever. Blood pressure acceptable. Broad workup ordered this time to rule intra-abdominal infection, CHF exacerbation, pneumonia, electrolyte imbalances. CT of the abdomen pelvis and PE protocol ordered at this time. Placed on tool and die machinist. Given morphine for analgesia. Laboratory studies ordered. Patient still tachypneic here in the 30s to 40s range. Minimal urine output even after Bowers placement. Bedside echocardiogram shows significantly dilated IVC with barely any respiratory variation and bilateral ventricular failure with EF 10-15%. Blood pressure still soft at this time with concern for cardiogenic nature to his illness but he also has an elevated white count on workup. LFTs elevated with potential congestive hepatopathy. Started on Rocephin empirically well CT scan shows no acute abnormalities such as a PE or intra-abdominal process per night radiology read. I spoke to the hospitalist Dr. Mejia who accepted the patient to the IMU at this time. Patient placed on BiPAP for respiratory therapy assistance given his tachypnea. After admission patient was re-evaluated here in the emergency department and appear to be in extremis. Tachypneic despite the BiPAP and barely mentating. He was able to follow commands and answer questions although breathing 50 times a minute. Did give me permission to intubate him. Patient intubated successfully with glide scope respiratory therapy. Pressures were soft even before the intubation but cuff pressures were unreliable with very close pulse pressures with no reliable reading. Arterial line placed at bedside showing significant hypotension. Patient requiring escalation in vasopressor therapies up to 4 separate medications at this time despite persistent hypotension. Repeat cardiac echo with hospitalist at bedside continuously shows plethoric IVC and signs of cardiogenic shock with fluid back up into the IVC and barely functioning ventricles. Given his white count a new lactic acid elevations we also started him on broad-spectrum antibiotics including vancomycin cefepime to cover for infectious pathology. Spoke to the ICU attending Dr. Jaquez who recommended transfer to a higher level of care center given cardiogenic shock but did recommend me talking to the security engineer here to see if we have any options for mechanical therapies or additional titration of medications. Currently patient on norepinephrine, dobutamine, dopamine and had added on vasopressin and given bicarb pushes while here in the ED. ABG shows respiratory and mixed acidosis with pH of 7.0. Morning radiologist subsequently called me and states that he thinks it could be acute cholecystitis picture in the right upper quadrant based on the over read from last night. Patient's picture does quite match a mixed septic and cardiac shock type picture but given his echo findings will be judicious with some fluids. Given 500 cc bolus. Spoke to Dr. Hadley from Interventional Cardiology who recommended transfer to higher level of care center. Spoke to the [facility] transfer system and patient was accepted as a direct transfer to the ICU critical care/cardiac care unit under Dr Cerna. Prior to transfer patient had significant further deterioration requiring escalating vasopressors to maximum on 5 separate drugs. Family members have gathered and his next of kin including his daughter has made the decision to withdraw care. Transfer services were canceled at this time and patient was palliatively extubated and sustained cardiac arrest quickly after cessation of efforts. Time of called at 8:38 a.m. Medical Records Attestation: I reviewed the patient's medical records. Lab Data Attestation: I reviewed the patient's lab results. 01/20/25 02:08 01/20/25 02:08 Labs: Lab Results 01/20/25 01/20/25 01/20/25 Range/Units 02:08 02:08 02:08 WBC 20.5 H (4.5-10.0) K/mm3 RBC 4.36 L (4.6-6.20) M/mm3 Hgb 13.7 L D (14.0-18.0) g/dL Hct 41.9 L (42.0-52.0) % MCV 96.1 (80-100) fl MCH 31.4 (26-34) pg MCHC 32.7 (32-36) g/dl RDW 13.3 (11.5-14.5) % Plt Count 222 (150-375) k/mm3 MPV 8.2 (7.4-10.4) fl Immature Gran % (Auto) Not Reportable Neut % (Auto) Not Reportable Lymph % (Auto) Not Reportable [place] % (Auto) Not Reportable Eos % (Auto) Not Reportable Baso % (Auto) Not Reportable Lymph # (Auto) Not Reportable [place] # (Auto) Not Reportable Eos # (Auto) Not Reportable Baso # (Auto) Not Reportable Abs Immat Gran (auto) Not Reportable Absolute Neuts (auto) Not Reportable Absolute Nucleated RBC Not Reportable Total Counted 100 Neutrophils % (Manual) 76 H (46-73) % Band Neutrophils % 13 H (0-6) % Lymphocytes % (Manual) 4.0 L (18-44) % Monocytes % (Manual) 7 (3-9) % Nucleated RBC % Not Reportable Abs Neuts (Manual) 18.24 H (1.3-6.7) K/mm3 Abs Lymphs (Manual) 0.82 L (1.1-4.5) K/mm3 Abs Monocytes (Manual) 1.43 H (0.1-0.90) K/mm3 Platelet Estimate Adequate (Adequate) Schistocytes None seen Minute Volume LPM Vent Mode Tidal Volume ml PEEP cmH2O Peak Inspir Pressure cmH2O Pressure Support cmH2O Sodium Cancelled 129 L Potassium Cancelled 4.8 Chloride Cancelled Carbon Dioxide Anion Gap BUN Creatinine Estim Creat Clear Calc Estimated GFR Glucose Lactic Acid (0.7-2.0) mmol/L Calcium Total Bilirubin AST ALT Alkaline Phosphatase Troponin I (0.000-0.034) ng/mL NT-Pro-B Natriuret Pep (19.9-100) pg/mL Total Protein Albumin Urine Color (Yellow) Urine Appearance (Clear) Urine pH Ur Specific [place] Urine Protein Urine Glucose (UA) Urine Ketones Ur Blood (Man) Urine Nitrate Urine Bilirubin Urine Urobilinogen Add Ur Microanalysis Leukocyte Esterase Rfl Urine RBC (0-2) /hpf Urine WBC (0-3) /hpf Ur Squamous Epith Cells (Few) /hpf Urine Bacteria /hpf Urine Casts Influenza A (RT-PCR) (Negative) Influenza B (RT-PCR) (Negative) RSV (RT-PCR) (Negative) SARS-CoV-2 RNA (RT-PCR) (Negative) 01/20/25 01/20/25 01/20/25 Range/Units 02:08 02:08 02:08 WBC (4.5-10.0) K/mm3 RBC (4.6-6.20) M/mm3 Hgb (14.0-18.0) g/dL Hct (42.0-52.0) % MCV (80-100) fl MCH (26-34) pg MCHC (32-36) g/dl RDW (11.5-14.5) % Plt Count (150-375) k/mm3 MPV (7.4-10.4) fl Immature Gran % (Auto) Neut % (Auto) Lymph % (Auto) [place] % (Auto) Eos % (Auto) Baso % (Auto) Lymph # (Auto) [place] # (Auto) Eos # (Auto) Baso # (Auto) Abs Immat Gran (auto) Absolute Neuts (auto) Absolute Nucleated RBC Total Counted Neutrophils % (Manual) (46-73) % Band Neutrophils % (0-6) % Lymphocytes % (Manual) (18-44) % Monocytes % (Manual) (3-9) % Nucleated RBC % Abs Neuts (Manual) (1.3-6.7) K/mm3 Abs Lymphs (Manual) (1.1-4.5) K/mm3 Abs Monocytes (Manual) (0.1-0.90) K/mm3 Platelet Estimate (Adequate) Schistocytes Minute Volume LPM Vent Mode Tidal Volume ml PEEP cmH2O Peak Inspir Pressure cmH2O Pressure Support cmH2O Sodium Potassium Chloride 96 L Carbon Dioxide Cancelled 18 L Anion Gap Cancelled 15 H BUN Cancelled Creatinine Estim Creat Clear Calc Estimated GFR Glucose Lactic Acid (0.7-2.0) mmol/L Calcium Total Bilirubin AST ALT Alkaline Phosphatase Troponin I (0.000-0.034) ng/mL NT-Pro-B Natriuret Pep (19.9-100) pg/mL Total Protein Albumin Urine Color (Yellow) Urine Appearance (Clear) Urine pH Ur Specific [place] Urine Protein Urine Glucose (UA) Urine Ketones Ur Blood (Man) Urine Nitrate Urine Bilirubin Urine Urobilinogen Add Ur Microanalysis Leukocyte Esterase Rfl Urine RBC (0-2) /hpf Urine WBC (0-3) /hpf Ur Squamous Epith Cells (Few) /hpf Urine Bacteria /hpf Urine Casts Influenza A (RT-PCR) (Negative) Influenza B (RT-PCR) (Negative) RSV (RT-PCR) (Negative) SARS-CoV-2 RNA (RT-PCR) (Negative) 01/20/25 01/20/25 01/20/25 Range/Units 02:08 02:08 02:08 WBC (4.5-10.0) K/mm3 RBC (4.6-6.20) M/mm3 Hgb (14.0-18.0) g/dL Hct (42.0-52.0) % MCV (80-100) fl MCH (26-34) pg MCHC (32-36) g/dl RDW (11.5-14.5) % Plt Count (150-375) k/mm3 MPV (7.4-10.4) fl Immature Gran % (Auto) Neut % (Auto) Lymph % (Auto) [place] % (Auto) Eos % (Auto) Baso % (Auto) Lymph # (Auto) [place] # (Auto) Eos # (Auto) Baso # (Auto) Abs Immat Gran (auto) Absolute Neuts (auto) Absolute Nucleated RBC Total Counted Neutrophils % (Manual) (46-73) % Band Neutrophils % (0-6) % Lymphocytes % (Manual) (18-44) % Monocytes % (Manual) (3-9) % Nucleated RBC % Abs Neuts (Manual) (1.3-6.7) K/mm3 Abs Lymphs (Manual) (1.1-4.5) K/mm3 Abs Monocytes (Manual) (0.1-0.90) K/mm3 Platelet Estimate (Adequate) Schistocytes Minute Volume LPM Vent Mode Tidal Volume ml PEEP cmH2O Peak Inspir Pressure cmH2O Pressure Support cmH2O Sodium Potassium Chloride Carbon Dioxide Anion Gap BUN 23 H Creatinine Cancelled 1.75 H Estim Creat Clear Calc Cancelled 53 Estimated GFR Cancelled Glucose Lactic Acid (0.7-2.0) mmol/L Calcium Total Bilirubin AST ALT Alkaline Phosphatase Troponin I (0.000-0.034) ng/mL NT-Pro-B Natriuret Pep (19.9-100) pg/mL Total Protein Albumin Urine Color (Yellow) Urine Appearance (Clear) Urine pH Ur Specific [place] Urine Protein Urine Glucose (UA) Urine Ketones Ur Blood (Man) Urine Nitrate Urine Bilirubin Urine Urobilinogen Add Ur Microanalysis Leukocyte Esterase Rfl Urine RBC (0-2) /hpf Urine WBC (0-3) /hpf Ur Squamous Epith Cells (Few) /hpf Urine Bacteria /hpf Urine Casts Influenza A (RT-PCR) (Negative) Influenza B (RT-PCR) (Negative) RSV (RT-PCR) (Negative) SARS-CoV-2 RNA (RT-PCR) (Negative) 01/20/25 01/20/25 01/20/25 Range/Units 02:08 02:08 02:08 WBC (4.5-10.0) K/mm3 RBC (4.6-6.20) M/mm3 Hgb (14.0-18.0) g/dL Hct (42.0-52.0) % MCV (80-100) fl MCH (26-34) pg MCHC (32-36) g/dl RDW (11.5-14.5) % Plt Count (150-375) k/mm3 MPV (7.4-10.4) fl Immature Gran % (Auto) Neut % (Auto) Lymph % (Auto) [place] % (Auto) Eos % (Auto) Baso % (Auto) Lymph # (Auto) [place] # (Auto) Eos # (Auto) Baso # (Auto) Abs Immat Gran (auto) Absolute Neuts (auto) Absolute Nucleated RBC Total Counted Neutrophils % (Manual) (46-73) % Band Neutrophils % (0-6) % Lymphocytes % (Manual) (18-44) % Monocytes % (Manual) (3-9) % Nucleated RBC % Abs Neuts (Manual) (1.3-6.7) K/mm3 Abs Lymphs (Manual) (1.1-4.5) K/mm3 Abs Monocytes (Manual) (0.1-0.90) K/mm3 Platelet Estimate (Adequate) Schistocytes Minute Volume LPM Vent Mode Tidal Volume ml PEEP cmH2O Peak Inspir Pressure cmH2O Pressure Support cmH2O Sodium Potassium Chloride Carbon Dioxide Anion Gap BUN Creatinine Estim Creat Clear Calc Estimated GFR 40 L Glucose Cancelled 142 H Lactic Acid (0.7-2.0) mmol/L Calcium Cancelled 9.0 Total Bilirubin Cancelled AST ALT Alkaline Phosphatase Troponin I (0.000-0.034) ng/mL NT-Pro-B Natriuret Pep (19.9-100) pg/mL Total Protein Albumin Urine Color (Yellow) Urine Appearance (Clear) Urine pH Ur Specific [place] Urine Protein Urine Glucose (UA) Urine Ketones Ur Blood (Man) Urine Nitrate Urine Bilirubin Urine Urobilinogen Add Ur Microanalysis Leukocyte Esterase Rfl Urine RBC (0-2) /hpf Urine WBC (0-3) /hpf Ur Squamous Epith Cells (Few) /hpf Urine Bacteria /hpf Urine Casts Influenza A (RT-PCR) (Negative) Influenza B (RT-PCR) (Negative) RSV (RT-PCR) (Negative) SARS-CoV-2 RNA (RT-PCR) (Negative) 01/20/25 01/20/25 01/20/25 Range/Units 02:08 02:08 02:08 WBC (4.5-10.0) K/mm3 RBC (4.6-6.20) M/mm3 Hgb (14.0-18.0) g/dL Hct (42.0-52.0) % MCV (80-100) fl MCH (26-34) pg MCHC (32-36) g/dl RDW (11.5-14.5) % Plt Count (150-375) k/mm3 MPV (7.4-10.4) fl Immature Gran % (Auto) Neut % (Auto) Lymph % (Auto) [place] % (Auto) Eos % (Auto) Baso % (Auto) Lymph # (Auto) [place] # (Auto) Eos # (Auto) Baso # (Auto) Abs Immat Gran (auto) Absolute Neuts (auto) Absolute Nucleated RBC Total Counted Neutrophils % (Manual) (46-73) % Band Neutrophils % (0-6) % Lymphocytes % (Manual) (18-44) % Monocytes % (Manual) (3-9) % Nucleated RBC % Abs Neuts (Manual) (1.3-6.7) K/mm3 Abs Lymphs (Manual) (1.1-4.5) K/mm3 Abs Monocytes (Manual) (0.1-0.90) K/mm3 Platelet Estimate (Adequate) Schistocytes Minute Volume LPM Vent Mode Tidal Volume ml PEEP cmH2O Peak Inspir Pressure cmH2O Pressure Support cmH2O Sodium Potassium Chloride Carbon Dioxide Anion Gap BUN Creatinine Estim Creat Clear Calc Estimated GFR Glucose Lactic Acid (0.7-2.0) mmol/L Calcium Total Bilirubin 6.1 H AST Cancelled 103 H ALT Cancelled 128 H Alkaline Phosphatase Cancelled Troponin I (0.000-0.034) ng/mL NT-Pro-B Natriuret Pep (19.9-100) pg/mL Total Protein Albumin Urine Color (Yellow) Urine Appearance (Clear) Urine pH Ur Specific [place] Urine Protein Urine Glucose (UA) Urine Ketones Ur Blood (Man) Urine Nitrate Urine Bilirubin Urine Urobilinogen Add Ur Microanalysis Leukocyte Esterase Rfl Urine RBC (0-2) /hpf Urine WBC (0-3) /hpf Ur Squamous Epith Cells (Few) /hpf Urine Bacteria /hpf Urine Casts Influenza A (RT-PCR) (Negative) Influenza B (RT-PCR) (Negative) RSV (RT-PCR) (Negative) SARS-CoV-2 RNA (RT-PCR) (Negative) 01/20/25 01/20/25 01/20/25 Range/Units 02:08 02:08 02:08 WBC (4.5-10.0) K/mm3 RBC (4.6-6.20) M/mm3 Hgb (14.0-18.0) g/dL Hct (42.0-52.0) % MCV (80-100) fl MCH (26-34) pg MCHC (32-36) g/dl RDW (11.5-14.5) % Plt Count (150-375) k/mm3 MPV (7.4-10.4) fl Immature Gran % (Auto) Neut % (Auto) Lymph % (Auto) [place] % (Auto) Eos % (Auto) Baso % (Auto) Lymph # (Auto) [place] # (Auto) Eos # (Auto) Baso # (Auto) Abs Immat Gran (auto) Absolute Neuts (auto) Absolute Nucleated RBC Total Counted Neutrophils % (Manual) (46-73) % Band Neutrophils % (0-6) % Lymphocytes % (Manual) (18-44) % Monocytes % (Manual) (3-9) % Nucleated RBC % Abs Neuts (Manual) (1.3-6.7) K/mm3 Abs Lymphs (Manual) (1.1-4.5) K/mm3 Abs Monocytes (Manual) (0.1-0.90) K/mm3 Platelet Estimate (Adequate) Schistocytes Minute Volume LPM Vent Mode Tidal Volume ml PEEP cmH2O Peak Inspir Pressure cmH2O Pressure Support cmH2O Sodium Potassium Chloride Carbon Dioxide Anion Gap BUN Creatinine Estim Creat Clear Calc Estimated GFR Glucose Lactic Acid (0.7-2.0) mmol/L Calcium Total Bilirubin AST ALT Alkaline Phosphatase 149 H Troponin I 1.090 H* (0.000-0.034) ng/mL NT-Pro-B Natriuret Pep > 49286 H Cancelled (19.9-100) pg/mL Total Protein Cancelled 7.1 Albumin Cancelled Urine Color (Yellow) Urine Appearance (Clear) Urine pH Ur Specific [place] Urine Protein Urine Glucose (UA) Urine Ketones Ur Blood (Man) Urine Nitrate Urine Bilirubin Urine Urobilinogen Add Ur Microanalysis Leukocyte Esterase Rfl Urine RBC (0-2) /hpf Urine WBC (0-3) /hpf Ur Squamous Epith Cells (Few) /hpf Urine Bacteria /hpf Urine Casts Influenza A (RT-PCR) (Negative) Influenza B (RT-PCR) (Negative) RSV (RT-PCR) (Negative) SARS-CoV-2 RNA (RT-PCR) (Negative) 01/20/25 01/20/25 01/20/25 Range/Units 02:08 05:50 06:58 WBC (4.5-10.0) K/mm3 RBC (4.6-6.20) M/mm3 Hgb (14.0-18.0) g/dL Hct (42.0-52.0) % MCV (80-100) fl MCH (26-34) pg MCHC (32-36) g/dl RDW (11.5-14.5) % Plt Count (150-375) k/mm3 MPV (7.4-10.4) fl Immature Gran % (Auto) Neut % (Auto) Lymph % (Auto) [place] % (Auto) Eos % (Auto) Baso % (Auto) Lymph # (Auto) [place] # (Auto) Eos # (Auto) Baso # (Auto) Abs Immat Gran (auto) Absolute Neuts (auto) Absolute Nucleated RBC Total Counted Neutrophils % (Manual) (46-73) % Band Neutrophils % (0-6) % Lymphocytes % (Manual) (18-44) % Monocytes % (Manual) (3-9) % Nucleated RBC % Abs Neuts (Manual) (1.3-6.7) K/mm3 Abs Lymphs (Manual) (1.1-4.5) K/mm3 Abs Monocytes (Manual) (0.1-0.90) K/mm3 Platelet Estimate (Adequate) Schistocytes Minute Volume LPM Vent Mode Tidal Volume ml PEEP cmH2O Peak Inspir Pressure cmH2O Pressure Support cmH2O Sodium Potassium Chloride Carbon Dioxide Anion Gap BUN Creatinine Estim Creat Clear Calc Estimated GFR Glucose Lactic Acid 11.5 H* (0.7-2.0) mmol/L Calcium Total Bilirubin AST ALT Alkaline Phosphatase Troponin I 2.370 H* D (0.000-0.034) ng/mL NT-Pro-B Natriuret Pep (19.9-100) pg/mL Total Protein Albumin 4.1 Urine Color (Yellow) Urine Appearance (Clear) Urine pH Ur Specific [place] Urine Protein Urine Glucose (UA) Urine Ketones Ur Blood (Man) Urine Nitrate Urine Bilirubin Urine Urobilinogen Add Ur Microanalysis Leukocyte Esterase Rfl Urine RBC (0-2) /hpf Urine WBC (0-3) /hpf Ur Squamous Epith Cells (Few) /hpf Urine Bacteria /hpf Urine Casts Influenza A (RT-PCR) Negative (Negative) Influenza B (RT-PCR) Negative (Negative) RSV (RT-PCR) Negative (Negative) SARS-CoV-2 RNA (RT-PCR) Negative (Negative) 01/20/25 01/20/25 Range/Units 06:59 07:07 WBC (4.5-10.0) K/mm3 RBC (4.6-6.20) M/mm3 Hgb (14.0-18.0) g/dL Hct (42.0-52.0) % MCV (80-100) fl MCH (26-34) pg MCHC (32-36) g/dl RDW (11.5-14.5) % Plt Count (150-375) k/mm3 MPV (7.4-10.4) fl Immature Gran % (Auto) Neut % (Auto) Lymph % (Auto) [place] % (Auto) Eos % (Auto) Baso % (Auto) Lymph # (Auto) [place] # (Auto) Eos # (Auto) Baso # (Auto) Abs Immat Gran (auto) Absolute Neuts (auto) Absolute Nucleated RBC Total Counted Neutrophils % (Manual) (46-73) % Band Neutrophils % (0-6) % Lymphocytes % (Manual) (18-44) % Monocytes % (Manual) (3-9) % Nucleated RBC % Abs Neuts (Manual) (1.3-6.7) K/mm3 Abs Lymphs (Manual) (1.1-4.5) K/mm3 Abs Monocytes (Manual) (0.1-0.90) K/mm3 Platelet Estimate (Adequate) Schistocytes Minute Volume 0.0 LPM Vent Mode Assist control Tidal Volume 450 ml PEEP 5 cmH2O Peak Inspir Pressure 0 cmH2O Pressure Support 0 cmH2O Sodium Potassium Chloride Carbon Dioxide Anion Gap BUN Creatinine Estim Creat Clear Calc Estimated GFR Glucose Lactic Acid (0.7-2.0) mmol/L Calcium Total Bilirubin AST ALT Alkaline Phosphatase Troponin I (0.000-0.034) ng/mL NT-Pro-B Natriuret Pep (19.9-100) pg/mL Total Protein Albumin Urine Color [place] H (Yellow) Urine Appearance T[place]id H (Clear) Urine pH TNP Ur Specific [place] TNP Urine Protein TNP Urine Glucose (UA) TNP Urine Ketones TNP Ur Blood (Man) TNP Urine Nitrate TNP Urine Bilirubin TNP Urine Urobilinogen TNP Add Ur Microanalysis Reviewed Leukocyte Esterase Rfl TNP Urine RBC 21-50 H (0-2) /hpf Urine WBC 0-5 (0-3) /hpf Ur Squamous Epith Cells Moderate (Few) /hpf Urine Bacteria None seen /hpf Urine Casts >20 Influenza A (RT-PCR) (Negative) Influenza B (RT-PCR) (Negative) RSV (RT-PCR) (Negative) SARS-CoV-2 RNA (RT-PCR) (Negative) ABG Data ABG results: 01/20/25 07:07 Puncture Site Right radial ABG pH 7.070 L* ABG pCO2 55.1 H ABG pO2 159.3 H ABG PO2/FiO2 Ratio 1.59 ABG HCO3 15.6 L ABG O2 Saturation 98.2 ABG O2 Content 20.1 ABG Base Excess -14.8 A-a Gradient 498.6 Oxyhemoglobin 97.3 Total Hemoglobin 14.5 O2 Delivery Device Ventilator O2 Liters/Min 0.0 Vent Rate 24 FiO2 100 Attestation: I personally reviewed and interpreted this ABG as follows: Interpretation: Mixed respiratory and lactic acidosis Imaging Data Attestation: I personally reviewed and interpreted this imaging study as follows: My impression: Impressions Chest/Abdomen/Pelvis CTA 01/20/25 06:48 IMPRESSION: 1. Acute cholecystitis. 2. Small right pleural effusion with pleural thickening, likely an exudate. ADDENDUM: 01/20/25 0704 I discussed this case with Dr. Beckford. Chest X-Ray 01/20/25 07:21 IMPRESSION: 1. Small right pleural effusion. 2. Right basilar atelectasis. Chest X-Ray 01/20/25 07:30 IMPRESSION: 1. ET tube and NG tube in place. Critical Care Time Critical Care Time Critical Care Time: Yes Total Critical Care Time: 135 (Critical care time is billed exclusive of the separately billed procedures above.) Discharge Plan Discharge Clinical Impression: Cardiogenic shock, Shock circulatory, Acute cholecystitis Patient Disposition: Condition: Patient Language: Malay Prescriptions: No Action ferrous sulfate 325 mg (65 mg iron) tablet,delayed release (DR/EC) 325 mg PO DAILY Qty: 90 0RF tramadol 50 mg tablet 50 mg PO BID PRN (Reason: pain) Qty: 40 5RF carvedilol [Coreg] 12.5 mg Tablet 12.5 mg PO Q12HR Qty: 60 3RF lisinopril 20 mg Tablet 20 mg PO DAILY Qty: 30 3RF clopidogrel 75 mg tablet 75 mg PO DAILY Qty: 30 3RF pantoprazole 40 mg Tablet,Delayed Release (Dr/Ec) 40 mg PO QAM Qty: 30 3RF rosuvastatin 40 mg tablet 40 mg PO DAILY furosemide 40 mg tablet 40 mg PO BID PRN (Reason: edema) Patient Comments: takes daily Follow-up/Referrals: Jennifer Collins APRN [Primary Care Provider, [facility]] Time of Disposition: 08:49
[2025-01-20 02:18] LABS: Hematocrit 41.9 % (42.0-52.0); Hemoglobin 13.7 g/dL (14.0-18.0); Mean Corpuscular HGB Conc 32.7 g/dl (32-36); Mean Corpuscular Hemoglobin 31.4 pg (26-34); Mean Corpuscular Volume 96.1 fl (80-100); Platelet Count Result 222 k/mm3 (150-375); Red Blood Count 4.36 M/mm3 (4.6-6.20); White Blood Count 20.5 K/mm3 (4.5-10.0)
[2025-01-20 02:31] LABS: Alanine Aminotransferase 128 U/L (6-50); Albumin Level 4.1 g/dL (3.5-5.1); Alkaline Phosphatase 149 U/L (38-126); Anion Gap 15 mmol/L (4-12); Aspartate Amino Transferase 103 U/L (17-59); Bilirubin,Total 6.1 mg/dL (0.2-1.3); Blood Urea Nitrogen 23 mg/dL (9-20); Calcium 9.0 mg/dL (8.4-10.2); Carbon Dioxide 18 mmol/L (22-30); Chloride 96 mmol/L (98-107); Estimated CRCL calculation 53 ml/min; Estimated Glomerular Filt Rate 40; Glucose 142 mg/dL (65-110); Potassium 4.8 mmol/L (3.4-5.0); Sodium 129 mmol/L (137-145); Total Protein 7.1 g/dL (6.3-8.2)
[2025-01-20 02:40] LABS: Band Neutrophils Percent 13 % (0-6); Lymphocytes Absolute Manual 0.82 K/mm3 (1.1-4.5); Lymphocytes Percent Manual 4.0 % (18-44); Monocytes Absolute Manual 1.43 K/mm3 (0.1-0.90); Monocytes Percent Manual 7 % (3-9); Neutrophils Absolute Manual 18.24 K/mm3 (1.3-6.7); Neutrophils Percent Manual 76 % (46-73); Schistocytes None Seen; Total Cells Counted 100
[2025-01-20 02:44] LABS: NT Pro B Type Natriuretic Pept > 30000 pg/mL (19.9-100); Troponin I 1.090 ng/mL (0.000-0.034)
--- NOTE | 2025-01-20 03:04 | ECG_ITS ---
Test Date: 2025-01-20 03:23:04 Measurements Intervals [place] Rate: 122 P: 0 GA: 0 QRS: 10 QRSD: 81 T: 105 QT: 411 QTc: 587 Interpretive Statements SINUS TACHYCARDIA DELAYED PRECORDIAL R/S TRANSITION LOW QRS VOLTAGE IN PRECORDIAL LEADS ST-T WAVE ABNORMALITY IN HIGH LATERAL LEADS- CONSIDER ISCHEMIA BASELINE ARTIFACT- I, II, III, AVR, AVL, AVF, V1-V6 ABNORMAL ECG Compared to ECG 01/20/2025 01:12:35 HEART RATE HAS INCREASED Electronically Signed On 01-20-2025 06:14:34 CDT by Asaf Murillo D.O.
[2025-01-20] MEDS: FUROSEMIDE INJ 100 MG/10 ML VIAL 80 MG IV PUSH (03:28)
--- NOTE | 2025-01-20 06:05 | PC.NURSE ---
This RN tried to call pts daughter. no answer
[2025-01-20 06:25] LABS: Troponin I 2.370 ng/mL (0.000-0.034)
[2025-01-20] MEDS: DOPamine 400 MG/D5W 250 ML 400 MG/250 ML BAG 11.07 MG IV CONT (06:30)
--- NOTE | 2025-01-20 06:31 | PCRCNOTE ---
ABG delayed due to 2nd attempt, and then A-line placement
--- NOTE | 2025-01-20 06:38 | PC.NURSE ---
This RN called pts daughter and notified her of pt being here and current condition
--- NOTE | 2025-01-20 06:42 | ECG_ITS ---
Test Date: 2025-01-20 06:51:59 Measurements Intervals [place] Rate: 135 P: 29 [place]: 183 QRS: 12 QRSD: 97 T: 91 QT: 376 QTc: 564 Interpretive Statements SINUS TACHYCARDIA WITH FREQUENT VENTRICULAR PREMATURE COMPLEXES LOW QRS VOLTAGE IN PRECORDIAL LEADS ANTEROSEPTAL INFARCT, AGE INDETERMINATE ST-T WAVE ABNORMALITY IN HIGH LATERAL LEADS- CONSIDER ISCHEMIA ABNORMAL ECG Compared to ECG 01/20/2025 03:23:04 HEART RATE HAS INCREASED Ventricular premature complex(es) now present Electronically Signed On 01-20-2025 08:29:48 CDT by Asaf Murillo D.O.
--- NOTE | 2025-01-20 06:45 | PC.NURSE ---
EDP edwin cultures off start of emergent central line. This RN sent cultures down with EDP approval
[2025-01-20] MEDS: NOREPINEPHRINE 8 MG/D5W 250 ML 8 MG/250 ML BAG 9.38 MG IV CONT (07:04)
[2025-01-20] MEDS: FENTANYL 2,500MCG/NS250ML(*CRX 2,500 MCG/250 ML BAG IV CONT (07:05)
[2025-01-20] MEDS: RAPID SEQUENCE INTUBATION KIT 1 EACH (07:06)
[2025-01-20] MEDS: DOBUTamine 250 MG/D5W 250 ML 250 MG/250 ML BAG 7.09 MG IV CONT (07:08)
[2025-01-20] MEDS: CEFEPIME 2 GM in SODIUM CHLORIDE 0.9% IV 50 ML 100 ML IVPB (07:08)
[2025-01-20 07:10] LABS: Alveolar/Arterial O2 Gradient 498.6 mmHg; Fractional Inspired Oxygen 100 %; HCO3 ABG 15.6 mEq/l (22.0-26.0); Oxygen Content ABG 20.1 %vol (16.0-22.0); Oxygen Saturation ABG 98.2 % (95.0-100.0); PCO2 ABG 55.1 mmHg (35.0-45.0); PO2 ABG 159.3 mmHg (80.0-100.0); PO2 FiO2 Ratio Arterial Blood 1.59 %
[2025-01-20 07:27] LABS: Liters per Minute 0.0 LPM; Site Drawn RIGHT RADIAL
[2025-01-20 07:28] LABS: Arterial Blood Gas Minute Volume 0.0 LPM; Arterial Blood Gas Pressure Support 0 cmH2O; Arterial Blood Gas Tidal Volume 450 ml; Arterial Blood Gas Ventilator rate 24 /MIN; Peak Inspiratory Pressure 0 cmH2O
[2025-01-20] MEDS: SODIUM CHLORIDE 0.9% IV 500 ML 999 ML IV CONT (07:30)
[2025-01-20] MEDS: VASOPRESSIN INJ 100 UNITS in DEXTROSE 5% 95 ML IV CONT (07:31)
[2025-01-20 07:42] LABS: Add Urine Microscopic? YES; Appearance Urine Turbid (Clear); Need Manual Microscopic Reviewed; Non Pathogenic Casts >20
[2025-01-20 07:43] LABS: Influenza A QL RT-PCR Negative (Negative); Influenza B QL RT-PCR Negative (Negative); RSV RNA, RT-PCR Negative (Negative); SARS-CoV-2 RNA PCR Negative (Negative)
[2025-01-20] MEDS: DOBUTamine 250 MG/D5W 250 ML 250 MG/250 ML BAG 17.72 MG IV CONT (07:43)
--- NOTE | 2025-01-20 07:44 | PC.NURSE ---
At 07:10 when this RN entered pt's room, dopamine was actively infusing at 10 mcg/kg/min. Pt hemodynamically unstable, MD Beckford aware and per report, infusing per his orders. This RN noticed shortly after that the dopamine order was on hold, and I was unable to document on it in the MAR. Pt in critical condition requiring continuous care. Per MD Beckford, weaning down the dopamine to start vasopressin. When vasopressin was initiated in the MAR, dopamine infusion was stopped. Dopamine re-started at 0744 at 20 mcg/kg/min per MD Beckford.
--- NOTE | 2025-01-20 07:49 | PC.NURSE ---
This RN witnessed pt sitting up leaning over in bed @0550. This RN went to sit pt back. pt had eyes up but unable to answer me. EDP called to bedside @0552. EDP recommended intubation to due pt condition declining. Etomidate 20 given @0557 Rocuronium 100 given @0558 7 1/2 Tube and 25 at the lip.
--- NOTE | 2025-01-20 07:55 | PC.NURSE ---
Per MD Beckford, increase Dobutamine to 10 mcg/kg/min at this time and able to titrate up to max of 20 mcg/kg/min, see MAR. Pt continues to be hypotensive with Norepinephrine and Vasopressin at max rate, with Dopamine infusing as well. Pt got 500 ml NS bolus, verbal order per MD Beckford, finished at this time.
--- NOTE | 2025-01-20 07:55 | PC.NURSE ---
spoke to [facility] transfer at this time for a triage assessment. was informed they will call when they have a bed available for the CCU
--- NOTE | 2025-01-20 08:13 | PC.NURSE ---
Pt has Dopamine started @0630 with a rate of 2.5mcg. EDP titrate to max dose @ 0645 EDP stated to stop Dopamine drip @0655 Dopamine titrated down @0655 to 2.5mcg Dopamine paused @0700
--- NOTE | 2025-01-20 08:16 | PC.NURSE ---
OG tube placed and is 60 at the lip with XR verfiied placement. EDP placed R wrist ART line and R groin central line
[2025-01-20] MEDS: SODIUM BICARBONATE 8.4% 50 MEQ/50 ML SYRINGE 150 MEQ (08:22)
--- NOTE | 2025-01-20 08:40 | PC.NURSE ---
Air transport arrived to transfer patient. Pt's two family members were at bedside. Prior to finishing report, pt's blood pressure and heart rate significantly decreased and patient had increased ectopy on the monitor. BP quickly was dropping despite all vasopressors. MD Beckford had already discussed pt's very critical status with family prior to this, and per MD Beckford, pt's family wished to withdraw care. Medications discontinued as documented in 08:38.
--- NOTE | 2025-01-20 10:37 | PCCCNOTE ---
Call requesting assistance with completing form for release of body. Daughter present & signed form. She is a mortician and requesting body be released to the home where she works. Nursing staff to call [facility] & [facility].
== END 2025-01-20 08:38 | disposition expired ==
PROVIDERS: General Practice; Emergency Provider Student in an Organized Health Care Education/Training Program; PCP Nurse Practitioner Family
DX: R57.0 Cardiogenic shock (principal); K81.0 Acute cholecystitis; Z20.822 Contact with and (suspected) exposure to COVID-19; I50.9 Heart failure, unspecified; I25.5 Ischemic cardiomyopathy; I25.10 Atherosclerotic heart disease of native coronary artery without angina pectoris; E78.5 Hyperlipidemia, unspecified; E11.9 Type 2 diabetes mellitus without complications; K21.9 Gastro-esophageal reflux disease without esophagitis; G47.33 Obstructive sleep apnea (adult) (pediatric); Z95.1 Presence of aortocoronary bypass graft; Z87.891 Personal history of nicotine dependence; Z79.02 Long term (current) use of antithrombotics/antiplatelets; Z79.899 Other long term (current) drug therapy; R00.0 Tachycardia, unspecified; I49.1 Atrial premature depolarization; R94.31 Abnormal electrocardiogram [ECG] [EKG]
CPT/HCPCS: 31500; 36415; 36556; 36600; 71045; 71275; 74177; 80053; 81001; 82805; 83605; 83880; 84484; 85018; 85025; 87040; 87186; 87637; 93005; 94002; 96361; 96365; 96375; 99291; C1751; J0168; J0692; J1250; J1265; J1938; J2270; J3010; J7030; J7040; Q9967